=== PATIENT | female | born 1955 | race African-American/Black ===

== ENCOUNTER 2025-03-26 17:23 | Inpatient (IN) | payer MEDICARE, MEDICAID, SELFPAY ==
[2025-03-26] VITALS (28 sets, daily range): BP systolic 98–148; BP diastolic 51–72; PULSE 112–136; RESP 12–20; TEMP 37.2; O2SAT 94–100; BMI 32.2
--- NOTE | ~2025-03-26 | XR_ITS ---
Examination: XR chest port-a-cath/central Clinical History: dialysis catheter placement verification Comparison: Earlier same day Technique: Portable AP Findings: Right neck dialysis catheter with tip lower SVC. Heart size normal. Lungs clear. No acute bony abnormality. IMPRESSION: 1. No pneumothorax or other acute cardiopulmonary findings given portable technique. Reviewed, dictated and finalized at location R. S AGENT CASUALTY INSURANCE IMPRESSION: 1. No pneumothorax or other acute cardiopulmonary findings given portable tech nique.
--- NOTE | ~2025-03-26 | CT_ITS ---
EXAMINATION: CT brain wo sharmaine, 03/31/2025 16:32 CORE BLOWER OPERATOR HISTORY: AMS COMPARISON: No comparisons available. Technique: Axial images obtained of the brain without contrast. One or more of the following dose reduction techniques were used: automated exposure control, adjustment of the mA and/or kV according to patient size, use of iterative reconstruction technique. Findings: No acute infarct or parenchymal hemorrhage. No abnormal mass or mass effect. No midline shift. No extra-axial fluid collections. No hydrocephalus. Mastoid air cells unremarkable. Sinuses and orbits unremarkable. No acute fracture. No significant facial or scalp soft tissue swelling evident. No radiopaque foreign body is seen. Impression: 1.No acute intracranial abnormality. Reviewed, dictated and finalized at location P. BLOWER OPERATOR Impression: 1.No acute intracranial abnormality.
--- NOTE | ~2025-03-26 | CT_ITS ---
EXAMINATION: CT brain wo con DATE: 03/26/2025 19:30 INDICATION: Altered mental status. TECHNIQUE: Computed tomography (CT) of the head was performed without intravenous contrast. The mA was adjusted according to patient size. Iterative reconstruction technique was employed. The dose-length product was 605.33 mGy-cm. COMPARISON: None FINDINGS: No acute intracranial bleed. No extra-axial collections. No evidence of ventriculomegaly. Extensive chronic small vessel ischemic change of periventricular white matter. No effacement of sulci. IMPRESSION: 1. No acute intracranial findings. 2. Extensive, bilaterally symmetric chronic small vessel ischemic changes. Reviewed, dictated and finalized at location T. MECHANIC
--- NOTE | ~2025-03-26 | XR_ITS ---
EXAMINATION: XR chest 1V DATE: 03/26/2025 19:35 INDICATION: Weakness. TECHNIQUE: A single frontal view of the chest was obtained. COMPARISON: None. FINDINGS: Upper normal size heart. Atherosclerotic aorta. Lungs are free of acute process. Calcified granuloma in the right lower lobe. Severe arthritic changes of both shoulders. IMPRESSION: 1. No acute pulmonary findings. Significant atherosclerotic aorta. 2. Severe arthritis of both shoulders. Reviewed, dictated and finalized at location T. CH COORDINATOR
--- NOTE | ~2025-03-26 | XR_ITS ---
Examination: XR chest 1V portable Clinical History: CHF Comparison: 1 day prior Technique: Portable AP Findings: Heart size normal. Lungs clear. No acute bony abnormality. IMPRESSION: 1. No acute cardiopulmonary findings given portable technique. Reviewed, dictated and finalized at location R. KLAYER
--- NOTE | ~2025-03-26 | XR_ITS ---
EXAMINATION: XR chest 1V portable DATE: 03/31/2025 09:56 INDICATION: Aspiration TECHNIQUE: A single frontal view of the chest was obtained. COMPARISON: March 28 chest x-ray FINDINGS: Exam somewhat limited by patient positioning and portable technique with no nixon pulmonary edema, or large effusion or gross consolidative process. Bones and upper abdomen appear stable. Gastric catheter present with the tip in the body of the stomach. Right internal jugular dual lumen catheter with tip projecting over the cavoatrial junction unchanged. No pneumothorax or subphrenic free air seen. IMPRESSION: 1. No gross interval change from the March 28 exam. Reviewed, dictated and finalized at location A. CLEANER
--- NOTE | ~2025-03-26 | US_ITS ---
EXAM/PROCEDURE: US renal BI HISTORY: KRISTEN (on CKD?) COMPARISON: None available. TECHNIQUE: Bilateral renal ultrasound FINDINGS: Right kidney: 9.4 x 5.4 x 4.4 cm Left kidney: 9.1 x 4.5 x 3.7 cm Sonographic windows are limited obscuring anatomic detail the kidneys. No gross hydronephrosis or large masses. The urinary bladder is nondistended with catheter placed. Partial visualization of the gallbladder suggest cholelithiasis. IMPRESSION: Very limited examination with no gross hydronephrosis or large renal masses. If more discrete evaluation of the kidneys is required, consider CT or MRI. The urinary bladder is nondistended with catheter placed. Cholelithiasis incidentally noted in the partially visualized gallbladder. Reviewed, dictated and finalized at location A. ULIZING MACHINE OPERATOR
--- NOTE | ~2025-03-26 | XR_ITS ---
EXAMINATION: XR abdomen gastric tube insert DATE: 03/30/2025 13:16 INDICATION: Nasogastric tube placement TECHNIQUE: A supine view of the abdomen and lower chest was obtained for evaluation of feeding tube placement. COMPARISON: None. FINDINGS: Nasogastric tube tip in proximal side port in the body the stomach. Dual-lumen right internal jugular central venous catheter with distal tip at the high right atrium. Visualized portion of lungs are clear with no pleural effusion or pneumothorax. Heart size is normal. Calcified right hilar lymph nodes consistent with old granulomatous disease. Upper lumbar levoscoliosis with severe spondylosis. IMPRESSION: 1. Nasogastric tube tip in proximal side port in the body the stomach. Reviewed, dictated and finalized at location A. COMMUNICATIONS SPECIALIST
--- NOTE | ~2025-03-26 | XR_ITS ---
EXAMINATION: XR chest 1V portable COMPARISON: No comparisons available. HISTORY: sob FINDINGS: Mild pulmonary venous congestion. No pneumothorax. Mild cardiomegaly. Mediastinal and hilar contours are within normal limits. Bony thorax no acute abnormality. Miscellaneous: None Impression: Mild CHF Reviewed, dictated and finalized at location P. UP WORKER Impression: Mild CHF
--- NOTE | 2025-03-26 17:47 | ECG_ITS ---
Test Date: 2025-03-26 18:01:09 Measurements Intervals [place] Rate: 114 P: 59 IA: 179 QRS: 76 QRSD: 74 T: 183 QT: 319 QTc: 439 Interpretive Statements SINUS TACHYCARDIA CONSIDER ANTERIOR INFARCT, AGE INDETERMINATE NONSPECIFIC ST & T-WAVE ABNORMALITY- DIFFUSE LEADS BASELINE ARTIFACT- I, II, III, AVR, AVL, AVF, V4-V5 ABNORMAL ECG No previous ECG available for comparison Electronically Signed On 03-26-2025 20:33:13 CLINICAL SUPPORT ASSOCIATE by Marko Barahona D.O.
--- NOTE | 2025-03-26 18:46 | PC.NURSE ---
Unable to get peripheral IV d/t pt. having poor vasculature. Racquel RN at bedside attempting ultrasound IV.
--- NOTE | 2025-03-26 18:47 | PC.NURSE ---
Pt. niece and POA at bedside who states pt. has had muffled speech and refusing to eat for approximately x1 month. Pt. is bed bound.
--- NOTE | 2025-03-26 18:48 | ED.GENADULT ---
HPI - General Adult General Chief complaint: Altered Mental Status Stated complaint: ABN LABS Time Seen by Provider: 03/26/25 17:55 History of Present Illness HPI narrative: patient 69-year-old female who presents emergency department chief complaint of altered mental status. Patient is resident of [facility] and per the facility had elevated renal function patient has history of CVA diabetes and normally has some level of dementia and the family reports that she has been progressively less responsive Related Data Allergies Allergy/AdvReac Type Severity Reaction Status Date / Time No Known Allergies Allergy Verified 03/26/25 17:46 Review of Systems Review of Systems: A 10 system review of systems was completed on the patient and is negative except for what is stated in the HPI. Nursing and ancillary documentation was reviewed. Exam Narrative: GENERAL: Chronically ill-appearing, well-nourished, and in no acute distress. HEAD: Normocephalic, atraumatic. EYES: PERRLA and EOMI. ENT: Nares clear, no rhinorrhea or epistaxis. Mucous membranes moist. NECK: Supple. CHEST: Clear to auscultation. No respiratory distress. HEART: Regular rate and rhythm. No murmur heard. Normal peripheral pulses. ABDOMEN: Soft, nontender, nondistended, normal active bowel sounds. EXTREMITIES: Normal range of motion. No edema. SKIN: Warm, dry, no rash. NEURO: winces to pain nonverbal Course Vital Signs Vital signs: Vital Signs Pulse Rate 114 H 03/26/25 17:29 Respiratory Rate 17 03/26/25 17:29 Blood Pressure 98/58 L 03/26/25 17:29 Pulse Oximetry 94 03/26/25 17:29 Oxygen Delivery Room Air 03/26/25 17:29 Temperature 37.2 C 03/26/25 18:19 Pulse Rate 135 H 03/26/25 21:15 Respiratory Rate 14 03/26/25 21:15 Blood Pressure 119/70 03/26/25 21:15 Pulse Oximetry 96 03/26/25 21:15 Oxygen Delivery Room Air 03/26/25 17:41 MDM MDM Narrative Medical decision making narrative: was discussed with the patient's family and they are leaning more toward DNR status. Laboratory studies were obtained on the patient showed a BUN of 89 and a creatinine of 7.48 troponin was slightly elevated at 0.127 lactic acid was 2.5 white blood cell count was 12.2 30 milliliters/kilos of IV fluids were ordered for the patient the patient was empirically started on Rocephin as the urinalysis is currently pending but the urine was essentially nixon pus BNP was elevated [id number] chest x-ray showed no acute findings CT head showed no acute findings Differential Diagnosis Differential Diagnosis: ACS, UTI, acute kidney injury, dehydration, Lab Data MDM Lab Attestation statement: I personally reviewed the patient's lab results. 03/26/25 19:15 03/26/25 19:15 Labs: Lab Results 03/26/25 03/26/25 03/26/25 Range/Units 19:15 19:44 20:20 WBC 12.2 H (4.5-10.0) K/mm3 RBC 3.87 L (4.2-5.4) M/mm3 Hgb 10.4 L (12.0-15.0) g/dL Hct 31.9 L (37.0-47.0) % MCV 82.4 (80-100) fl MCH 26.9 (26-34) pg MCHC 32.6 (32-36) g/dl RDW 17.8 H (11.5-14.5) % Plt Count 379 H (150-375) k/mm3 MPV 10.9 H (7.4-10.4) fl Immature Gran % (Auto) 1.6 H (0-0.5) % Neut % (Auto) 76.2 H (45.5-73.1) % Lymph % (Auto) 13.6 L (18.3-44.2) % [place] % (Auto) 8.4 (2.6-8.5) % Eos % (Auto) 0.0 (0-4.4) % Baso % (Auto) 0.2 (0.2-1.2) % Lymph # (Auto) 1.65 (0.9-3.2) K/mm3 Hardin # (Auto) 1.0 H (0.1-0.6) K/mm3 Eos # (Auto) 0.0 (0-0.3) K/mm3 Baso # (Auto) 0.0 (0.0-0.1) K/mm3 Abs Immat Gran (auto) 0.20 H (0.00-0.031) K/mm3 Absolute Neuts (auto) 9.3 H (1.3-6.7) K/mm3 Absolute Nucleated RBC 0.210 H (0.0-0.012) K/mm3 Nucleated RBC % 1.7 H (0.0-0.2) % PT 13.9 (11.1-14.7) Seconds INR 1.1 APTT 24.7 (22.3-36.8) Seconds Sodium 139 (137-145) mmol/L Potassium 4.3 (3.4-5.0) mmol/L Chloride 107 (98-107) mmol/L Carbon Dioxide 21 L (22-30) mmol/L Anion Gap 11 (4-12) mmol/L BUN 89 H (7-17) mg/dL Creatinine 7.48 H (0.7-1.0) mg/dL Estim Creat Clear Calc 6 ml/min Estimated GFR 5 L (59 - ) Glucose 139 H (65-110) mg/dL Lactic Acid 2.5 H (0.7-2.0) mmol/L Calcium 8.2 L (8.4-10.2) mg/dL Magnesium 2.2 (1.6-2.3) mg/dL Total Bilirubin 1.1 (0.2-1.3) mg/dL AST 32 (14-36) U/L ALT 30 (6-35) U/L Alkaline Phosphatase 107 (38-126) U/L Troponin I 0.127 H* (0.000-0.034) ng/mL NT-Pro-B Natriuret Pep 35208 H (19.9-100) pg/mL Total Protein 6.6 (6.3-8.2) g/dL Albumin 3.0 L (3.5-5.1) g/dL Procalcitonin 0.5 ng/mL Urine Color Dark yellow (Yellow) Urine Appearance Turbid H (Clear) Urine pH 6.0 (5.0-9.0) Ur Specific [place] 1.030 (1.001-1.035) Urine Protein 2+ H (Negative) mg/dL Urine Glucose (UA) Negative (Negative) mg/dL Urine Ketones Negative (Negative) mg/dL Ur Blood (Man) 3+ H (Negative) Urine Nitrate Negative (Negative) Urine Bilirubin 1+ H (Negative) Urine Urobilinogen 0.2 (<2.0) mg/dL Leukocyte Esterase Rfl 3+ H (Negative) SUSSY/UL Urine RBC 21-50 H (0-2) /hpf Urine WBC >100 (0-3) /hpf Ur Squamous Epith Cells None seen (Few) /hpf Urine Bacteria 3+ H (None) /hpf Influenza A (RT-PCR) Negative (Negative) Influenza B (RT-PCR) Negative (Negative) RSV (RT-PCR) Negative (Negative) SARS-CoV-2 RNA (RT-PCR) Negative (Negative) Imaging Data Radiologist's impression: ITS Impressions Head CT 03/26/25 19:31 IMPRESSION: 1. No acute intracranial findings. 2. Extensive, bilaterally symmetric chronic small vessel ischemic changes. Chest X-Ray 03/26/25 19:36 IMPRESSION: 1. No acute pulmonary findings. Significant atherosclerotic aorta. 2. Severe arthritis of both shoulders. Discharge Plan Discharge Clinical Impression: Acute kidney injury, Elevated troponin Patient Disposition: Still a Patient Condition: Stable Patient Language: Iranian Follow-up/Referrals: Dillan Villanueva [Other] Time of Disposition: 20:56
--- NOTE | 2025-03-26 19:07 | ECG_ITS ---
Test Date: 2025-03-26 19:48:54 Measurements Intervals [place] Rate: 132 P: 3 FL: 167 QRS: 89 QRSD: 79 T: 217 QT: 292 QTc: 433 Interpretive Statements ATRIAL FLUTTER/TACHYCARDIA WITH RAPID VENTRICULAR RESPONSE CONSIDER ANTERIOR INFARCT, AGE INDETERMINATE ST-T WAVE ABNORMALITY IN INF/LAT LEADS- CONSIDER ISCHEMIA BASELINE ARTIFACT- I, II, AVR, AVL, AVF, V2 ABNORMAL ECG Compared to ECG 03/26/2025 18:01:09 SINUS TACHYCARDIA NO LONGER PRESENT Possible ischemia now present Electronically Signed On 03-26-2025 20:37:31 ELECTRICAL TEST ENGINEER by Marko Barahona D.O.
[2025-03-26 19:24] LABS: Hematocrit 31.9 % (37.0-47.0); Hemoglobin 10.4 g/dL (12.0-15.0); Immature Granulocyte Percent A 1.6 % (0-0.5); Lymphocytes Absolute Auto 1.65 K/mm3 (0.9-3.2); Mean Corpuscular HGB Conc 32.6 g/dl (32-36); Mean Corpuscular Hemoglobin 26.9 pg (26-34); Mean Corpuscular Volume 82.4 fl (80-100); Nucleated Red Blood Cells Absolute Auto 0.210 K/mm3 (0.0-0.012); Nucleated Red Blood Cells Perc 1.7 % (0.0-0.2); Platelet Count Result 379 k/mm3 (150-375); Red Blood Count 3.87 M/mm3 (4.2-5.4); White Blood Count 12.2 K/mm3 (4.5-10.0)
--- NOTE | 2025-03-26 19:30 | PC.NURSE ---
After multiple attempts with ultrasound machine, IV placement and lab draw successful.
[2025-03-26 19:34] LABS: INR 1.1; Prothrombin Time 13.9 Seconds (11.1-14.7)
[2025-03-26 19:36] LABS: Partial Thromboplastin Time 24.7 Seconds (22.3-36.8)
[2025-03-26 19:44] LABS: Alanine Aminotransferase 30 U/L (6-35); Albumin Level 3.0 g/dL (3.5-5.1); Alkaline Phosphatase 107 U/L (38-126); Anion Gap 11 mmol/L (4-12); Aspartate Amino Transferase 32 U/L (14-36); Bilirubin,Total 1.1 mg/dL (0.2-1.3); Blood Urea Nitrogen 89 mg/dL (7-17); Calcium 8.2 mg/dL (8.4-10.2); Carbon Dioxide 21 mmol/L (22-30); Chloride 107 mmol/L (98-107); Glucose 139 mg/dL (65-110); Magnesium 2.2 mg/dL (1.6-2.3); Potassium 4.3 mmol/L (3.4-5.0); Sodium 139 mmol/L (137-145); Total Protein 6.6 g/dL (6.3-8.2)
[2025-03-26 19:56] LABS: Troponin I 0.127 ng/mL (0.000-0.034)
[2025-03-26 19:59] LABS: Procalcitonin 0.5 ng/mL
[2025-03-26 20:08] LABS: Estimated CRCL calculation 6 ml/min; Estimated Glomerular Filt Rate 5
--- NOTE | 2025-03-26 20:15 | PC.NURSE ---
Dr. Sxeton at bedside updating family.
[2025-03-26 20:18] LABS: NT Pro B Type Natriuretic Pept 15100 pg/mL (19.9-100)
[2025-03-26] MEDS: SODIUM CHLORIDE 0.9% IV 1,000 ML 999 ML IV CONT ×3 (20:19→22:30)
[2025-03-26 20:26] LABS: Influenza A QL RT-PCR Negative (Negative); Influenza B QL RT-PCR Negative (Negative); RSV RNA, RT-PCR Negative (Negative); SARS-CoV-2 RNA PCR Negative (Negative)
[2025-03-26 20:37] LABS: Add Urine Microscopic? YES
--- NOTE | 2025-03-26 20:39 | PC.NURSE ---
Pt. arrived in soiled depend. Dirty depend removed, Pt. cleaned of feces and urine with soap and water. Clean depend applied. Pt. has sacral wound. No tunneling or purulent drainage. Scant amount of active bleeding. Dressing from facility removed. Wound cleaned. New Mepilex applied. Wound on anterior R. thigh that wraps around to posterior R. thigh. Bandages from facility removed. Small amount of purulent drainage. Wound cleaned and new mepilex applied. Marina boot on R. foot from facility on R. foot. Pillow placed under L. foot to keep pressure off of L. heel.
[2025-03-26 20:55] LABS: Appearance Urine Turbid (Clear)
[2025-03-26 20:56] LABS: Glucose Urine UA Negative (Negative); Specific Grav Ur 1.030 (1.001-1.035)
[2025-03-26 20:59] LABS: Nitrate Urine Negative (Negative)
[2025-03-26 21:00] LABS: Leukocyte Esterase Ur 3+ LEU/UL (Negative)
[2025-03-26] MEDS: cefTRIAXone 1 GM in SODIUM CHLORIDE 0.9% IV 50 ML 100 ML IVPB (21:13)
--- NOTE | 2025-03-26 22:32 | ECG_ITS ---
Test Date: 2025-03-26 22:38:16 Measurements Intervals [place] Rate: 123 P: 0 MS: 172 QRS: 84 QRSD: 71 T: -90 QT: 292 QTc: 418 Interpretive Statements SINUS TACHYCARDIA DELAYED PRECORDIAL R/S TRANSITION ST-T WAVE ABNORMALITY IN ANTEROLAT/INF LEADS- CONSIDER ISCHEMIA BASELINE ARTIFACT- I, I, AVR, AVL, V1-V4 ABNORMAL ECG Compared to ECG 03/26/2025 19:48:54 HEART RATE HAS DECREASED Electronically Signed On 03-27-2025 06:18:08 COMMERCIAL GLAZIER by Marko Barahona D.O.
[2025-03-26 23:32] LABS: Troponin I 0.117 ng/mL (0.000-0.034)
--- NOTE | 2025-03-26 23:51 | WPCEDHO ---
ED Hand Off Checklist All vitals saved: Yes IV Site documented: Yes All med administrations documented: Yes Triage Note Triage Note Pt to ED via [facility] 03/26/25 17:29 from [facility] with c/o abnormal lab values. Per EMS , facility nurse reported that the pt had a high creatinine level. Pt has a pmh of CKD, CHF, HTN, AMS and DM2. Pt is currently disoriented and arousable to verbal stimuli. Allergies No Known Allergies Allergy (Verified 03/26/25 17:46) Administered/Completed Medications Discontinued Medications Sodium Chloride (Normal Saline Iv) 1,000 mls @ 999 mls/hr IV CONT .Q1H1M STA Stop: 03/26/25 19:12 Last Infusion: 03/26/25 22:29 Dose: Infused Documented By: Admin: 03/26/25 20:19 Dose: 999 mls/hr Documented By: JESSICA Sodium Chloride (Normal Saline Iv) 1,000 mls @ 999 mls/hr IV CONT .Q1H1M STA Stop: 03/26/25 19:52 Last Infusion: 03/26/25 23:38 Dose: Infused Documented By: Admin: 03/26/25 21:13 Dose: 999 mls/hr Documented By: JESSICA Sodium Chloride (Normal Saline Iv) 1,000 mls @ 999 mls/hr IV CONT .Q1H1M STA Stop: 03/26/25 20:51 Last Infusion: 03/26/25 23:38 Dose: Infused Documented By: Admin: 03/26/25 22:30 Dose: 999 mls/hr Documented By: JESSICA Ceftriaxone Sodium 1 gm/ (Sodium Chloride) 50 mls @ 100 mls/hr IVPB ONCE STA Stop: 03/26/25 20:58 Last Infusion: 03/26/25 22:00 Dose: Infused Documented By: Admin: 03/26/25 21:13 Dose: 100 mls/hr Documented By: JESSICA Notes 03/26/25 20:39 Nurse Note by Stephanie Stewart Pt. arrived in soiled depend. Dirty depend removed, Pt. cleaned of feces and urine with soap and water. Clean depend applied. Pt. has sacral wound. No tunneling or purulent drainage. Scant amount of active bleeding. Dressing from facility removed. Wound cleaned. New Mepilex applied. Wound on anterior R. thigh that wraps around to posterior R. thigh. Bandages from facility removed. Small amount of purulent drainage. Wound cleaned and new mepilex applied. Marina boot on R. foot from facility on R. foot. Pillow placed under L. foot to keep pressure off of L. heel. Initialized on 03/26/25 20:39 - END OF NOTE 03/26/25 20:15 (created 03/26/25 20:30) Nurse Note by Stephanie Stewart Dr. at bedside updating family. Initialized on 03/26/25 20:30 - END OF NOTE 03/26/25 19:30 (created 03/26/25 19:41) Nurse Note by Stephanie Stewart After multiple attempts with ultrasound machine, IV placement and lab draw successful. Initialized on 03/26/25 19:41 - END OF NOTE 03/26/25 18:47 Nurse Note by Stephanie Stewart Pt. niece and POA at bedside who states pt. has had muffled speech and refusing to eat for approximately x1 month. Pt. is bed bound. Initialized on 03/26/25 18:47 - END OF NOTE 03/26/25 18:46 Nurse Note by Stephanie Stewart Unable to get peripheral IV d/t pt. having poor vasculature. LUCRECIA Clement at bedside attempting ultrasound IV. Initialized on 03/26/25 18:46 - END OF NOTE Interventions/Assessments IV / Saline Lock, Insert Start: 03/26/25 17:47 Freq: STAT Status: Active Protocol: Document 03/26/25 19:45 KJT (Rec: 03/26/25 19:46 KJT [id number]) IV Assessment Peripheral Access Right Antecubital IV Catheter Access Initiated IV Insertion Date 03/26/25 IV Insertion Time 19:45 Catheter Gauge 20 IV Insertion 3 Attempts Ultrasound Used for Yes Placement IV Site Assessment WNL IV Care and WNL Maintenance PA: Cardiovascular Assessment Start: 03/26/25 17:17 Freq: Status: Active Protocol: Document 03/26/25 17:44 MCO (Rec: 03/26/25 17:45 MCO [id number]) Cardiovascular Assessment Skin Description Dusky,Dry Heart Sounds Normal Jugular Vein None Distention PA: Neurological Assessment Start: 03/26/25 17:17 Freq: Status: Active Protocol: Document 03/26/25 20:00 KJT (Rec: 03/26/25 20:46 KJT [id number]) Neurological Assessment Level of Alert Consciousness Arousable to Light Pain Orientation Oriented to Person Neurological Weakness, General Symptoms Hallucination Type None Unable to Redirect No Behavior Behavior Flat Affect Patient Unable to Comprehend Comprehension Memory Description Usp Impaired,Short Term Impaired Ability to Maintain Unable to Assess Balance Facial Symmetry Unable to Assess Speech Pattern Delayed Tongue Position Midline [place] Coma Scale Eyes To Pain Verbal Disoriented Motor Follows Commands [place] Coma Total 12 Score PA: Respiratory Assessment Start: 03/26/25 17:17 Freq: Status: Active Protocol: Document 03/26/25 17:41 MCO (Rec: 03/26/25 17:44 MCO [id number]) Oxygen Delivery Oxygen Delivery Room Air Last Vital Signs Temperature 99 F 03/26/25 18:19 Pulse Rate 113 H 03/26/25 22:01 Respiratory Rate 15 03/26/25 22:01 Pulse Oximetry 97 03/26/25 22:01 Blood Pressure 148/71 H 03/26/25 22:01 Blood Pressure Mean 87 03/26/25 22:01 Blood Pressure Position Sitting 03/26/25 21:15 Oxygen Delivery Room Air 03/26/25 17:41 Weight 78 kg 03/26/25 17:29 Last Result - Abnormals Only WBC 12.2 K/mm3 (4.5-10.0) H 03/26/25 19:15 RBC 3.87 M/mm3 (4.2-5.4) L 03/26/25 19:15 Hgb 10.4 g/dL (12.0-15.0) L 03/26/25 19:15 Hct 31.9 % (37.0-47.0) L 03/26/25 19:15 RDW 17.8 % (11.5-14.5) H 03/26/25 19:15 Plt Count 379 k/mm3 (150-375) H 03/26/25 19:15 MPV 10.9 fl (7.4-10.4) H 03/26/25 19:15 Immature Gran % (Auto) 1.6 % (0-0.5) H 03/26/25 19:15 Neut % (Auto) 76.2 % (45.5-73.1) H 03/26/25 19:15 Lymph % (Auto) 13.6 % (18.3-44.2) L 03/26/25 19:15 [place] # (Auto) 1.0 K/mm3 (0.1-0.6) H 03/26/25 19:15 Abs Immat Gran (auto) 0.20 K/mm3 (0.00-0.031) H 03/26/25 19:15 Absolute Neuts (auto) 9.3 K/mm3 (1.3-6.7) H 03/26/25 19:15 Absolute Nucleated RBC 0.210 K/mm3 (0.0-0.012) H 03/26/25 19:15 Nucleated RBC % 1.7 % (0.0-0.2) H 03/26/25 19:15 Carbon Dioxide 21 mmol/L (22-30) L 03/26/25 19:15 BUN 89 mg/dL (7-17) H 03/26/25 19:15 Creatinine 7.48 mg/dL (0.7-1.0) H 03/26/25 19:15 Estimated GFR 5 (59-) L 03/26/25 19:15 Glucose 139 mg/dL (65-110) H 03/26/25 19:15 Lactic Acid 2.2 mmol/L (0.7-2.0) H 03/26/25 21:56 Calcium 8.2 mg/dL (8.4-10.2) L 03/26/25 19:15 Troponin I 0.117 ng/mL (0.000-0.034) H* 03/26/25 21:56 NT-Pro-B Natriuret Pep 16528 pg/mL (19.9-100) H 03/26/25 19:15 Albumin 3.0 g/dL (3.5-5.1) L 03/26/25 19:15 Urine Appearance Turbid (Clear) H 03/26/25 20:20 Urine Protein 2+ mg/dL (Negative) H 03/26/25 20:20 Ur Blood (Man) 3+ (Negative) H 03/26/25 20:20 Urine Bilirubin 1+ (Negative) H 03/26/25 20:20 Leukocyte Esterase Rfl 3+ SUSSY/UL (Negative) H 03/26/25 20:20 Urine RBC 21-50 /hpf (0-2) H 03/26/25 20:20 Urine Bacteria 3+ /hpf (None) H 03/26/25 20:20
[2025-03-26] MEDS: SODIUM CHLORIDE 0.9% IV 1,000 ML 125 ML IV CONT (23:52)
[2025-03-27] VITALS (14 sets, daily range): BP systolic 98–122; BP diastolic 34–82; PULSE 70–132; RESP 14–20; TEMP 36.2–37.1; O2SAT 91–100; BMI 32.2; BMI 32.4
--- NOTE | 2025-03-27 00:44 | WNDPHOTO ---
PHOTO ONLY - See Nursing Notes and/ or assessments for documentation.
--- NOTE | 2025-03-27 00:51 | WNDPHOTO ---
PHOTO ONLY - See Nursing Notes and/ or assessments for documentation.
--- NOTE | 2025-03-27 00:55 | WNDPHOTO ---
PHOTO ONLY - See Nursing Notes and/ or assessments for documentation.
--- NOTE | 2025-03-27 01:14 | ADMGEN ---
This patient, Yisel Alvarez, was admitted to [facility] Surg Room 324-02. Patient/family oriented to hospital policies and general routines including ID bracelet, bed and alarms, visiting hours, pain management, procedures, bathroom and other care routines, personal items, smoking policy, room service/diet, and visiting hours. Information on how to activate the Rapid Response Team has been discussed. Patient/Family are encouraged to report perceived risks to care and to ask questions if they do not understand what they are told or what they should do.
--- NOTE | 2025-03-27 05:57 | PM.IMHP2 ---
H&P: HPI History of Present Illness Date/Time: 03/27/25 05:57 Chief Complaint: Renal failure on outpatient labs Narrative: 69-year-old female with a past medical history of dementia, CVA, essential hypertension, CHF and diabetes who presented to the ER from [facility] due to elevated creatinine on outpatient labs. The patient is unable to provide any history and will only open her eyes to verbal stimuli. She will not follow commands or communicate. Evidently the labs were performed due to patient being more altered than baseline. Family reported that the patient had been progressively less responsive over the course of the week. The patient was sent into the ER for evaluation. Labs demonstrated PMFSH Past Medical History Medical History (Updated 03/27/25 @ 09:17 by Tanisha Montenegro DO) Anxiety and depression Dementia Type 2 diabetes mellitus Essential hypertension CHF (congestive heart failure) CVA (cerebral vascular accident) Surgical History Surgical History (Updated 03/27/25 @ 06:53 by Tanisha Montenegro DO) Surgical history unknown Social History Social History Smoking status: Unknown if ever smoked Spiritual care concerns: No Meds Home Medications and Allergies Home Medications ?Medication ?Instructions ?Recorded ?Confirmed ?Type acetaminophen 325 mg capsule 650 mg PO Q4H PRN pain 03/27/25 03/27/25 History albuterol 90 mcg-budesonide 80 2 inh inhalation Q6H PRN shortness 03/27/25 03/27/25 History mcg/actuation HFA aerosol inhaler of breath (Airsupra) ammonium lactate 12 % lotion 1 applic topical DAILY 03/27/25 03/27/25 History (AmLactin) ascorbic acid (vitamin C) 500 mg 500 mg PO DAILY 03/27/25 03/27/25 History capsule aspirin 81 mg tablet 81 mg PO DAILY 03/27/25 03/27/25 History atorvastatin 40 mg tablet 40 mg PO HS 03/27/25 03/27/25 History bisacodyl 10 mg rectal suppository 10 mg RECTAL DAILY PRN constipation 03/27/25 03/27/25 History calamine 1 ea topical Q8H PRN itching 03/27/25 03/27/25 History carvedilol 6.25 mg tablet 6.25 mg PO BID 03/27/25 03/27/25 History cholecalciferol (vitamin D3) 25 1,000 unit PO DAILY 03/27/25 03/27/25 History mcg (1,000 unit) capsule cranberry extract 250 mg tablet 250 mg PO DAILY 03/27/25 03/27/25 History diclofenac sodium 1 % topical gel 2 g topical Q4H PRN pain 03/27/25 03/27/25 History diphenhydramine HCl 25 mg capsule 25 mg PO Q6H PRN itching 03/27/25 03/27/25 History (Aler-Cap) duloxetine 60 mg capsule,delayed 60 mg PO DAILY 03/27/25 03/27/25 History release famotidine 20 mg tablet 20 mg PO DAILY 03/27/25 03/27/25 History ferrous sulfate 325 mg (65 mg 325 mg PO DAILY 03/27/25 03/27/25 History iron) tablet (FeroSul) furosemide 40 mg tablet 40 mg PO DAILY 03/27/25 03/27/25 History hydrocortisone 1 % topical cream 1 applic topical Q12H PRN 03/27/25 03/27/25 History (Ala-Rubens) hemorrhoids magnesium citrate 296 ml PO DAILY PRN constipation 03/27/25 03/27/25 History magnesium hydroxide 400 mg/5 mL 30 ml PO HS PRN constipation 03/27/25 03/27/25 History oral suspension (Milk of Magnesia) methyl salicylate 10 % topical 1 applic topical Q4H PRN muscle 03/27/25 03/27/25 History cream pain metronidazole 1 % topical cream 1 applic topical Q12H 03/27/25 03/27/25 History (Noritate) miconazole nitrate 2 % topical 1 spray topical Q12H 03/27/25 03/27/25 History spray powder (Athlete's Foot) mirtazapine 7.5 mg tablet 7.5 mg PO HS 03/27/25 03/27/25 History multivitamin (Daily Multi-Vitamin 1 tablet PO DAILY 03/27/25 03/27/25 History tablet) nystatin 100,000 unit/gram topical 1 applic topical BID 03/27/25 03/27/25 History powder ondansetron HCl 4 mg tablet 4 mg PO Q6H PRN nausea and vomiting 03/27/25 03/27/25 History ophthalmic irrigation solution 2 drp ophthalmic (eye) Q12H PRN 03/27/25 03/27/25 History drops dry eye(s) polyethylene glycol 3350 17 17 g PO DAILY PRN constipation 03/27/25 03/27/25 History gram/dose oral powder (ClearLax) povidone-iodine 10 % topical 1 applic topical DAILY 03/27/25 03/27/25 History solution (Betadine) sitagliptin 25 mg tablet 25 mg PO DAILY 03/27/25 03/27/25 History sodium phosphates 19 gram-7 118 ml RECTAL DAILY PRN 03/27/25 03/27/25 History gram/118 mL enema (Enema) constipation triamcinolone acetonide 0.1 % 1 applic topical BID 03/27/25 03/27/25 History topical cream zinc 50 mg capsule 50 mg PO DAILY 03/27/25 03/27/25 History zinc oxide 10 % topical spray 1 applic topical BID 03/27/25 03/27/25 History (Beba Bottoms Diaper Rash) Allergies Allergy/AdvReac Type Severity Reaction Status Date / Time No Known Allergies Allergy Verified 03/27/25 01:53 Vital Signs Vital Signs - 24 hr 03/26/25 17:29 03/26/25 17:41 03/26/25 18:03 Temperature Pulse Rate 114 H 114 H Respiratory Rate 17 17 Blood Pressure 98/58 L Pulse Oximetry 94 Oxygen Delivery Room Air Room Air 03/26/25 18:15 03/26/25 18:19 03/26/25 18:30 Temperature 99 F Pulse Rate 114 H 113 H 114 H Respiratory Rate 20 16 15 Blood Pressure 119/60 Pulse Oximetry 100 Oxygen Delivery 03/26/25 18:45 03/26/25 19:00 03/26/25 19:45 Temperature Pulse Rate 114 H 136 H 133 H Respiratory Rate 16 14 16 Blood Pressure Pulse Oximetry 97 Oxygen Delivery 03/26/25 20:00 03/26/25 20:14 03/26/25 20:15 Temperature Pulse Rate 134 H 119 H 119 H Respiratory Rate 17 12 15 Blood Pressure 100/51 L Pulse Oximetry 98 Oxygen Delivery 03/26/25 20:16 03/26/25 20:18 03/26/25 20:30 Temperature Pulse Rate 118 H 118 H 112 H Respiratory Rate 17 14 13 Blood Pressure 102/60 102/60 Pulse Oximetry 96 97 Oxygen Delivery 03/26/25 20:31 03/26/25 20:45 03/26/25 20:46 Temperature Pulse Rate 116 H 117 H 114 H Respiratory Rate 14 12 14 Blood Pressure 114/61 116/72 Pulse Oximetry Oxygen Delivery 03/26/25 21:00 03/26/25 21:01 03/26/25 21:15 Temperature Pulse Rate 112 H 113 H 135 H Respiratory Rate 15 13 14 Blood Pressure 119/70 119/70 Pulse Oximetry 96 Oxygen Delivery 03/26/25 21:15 03/26/25 21:16 03/26/25 21:30 Temperature Pulse Rate 135 H 135 H 134 H Respiratory Rate 15 14 16 Blood Pressure 108/51 L Pulse Oximetry Oxygen Delivery 03/26/25 21:31 03/26/25 21:59 03/26/25 22:00 Temperature Pulse Rate 133 H 113 H 112 H Respiratory Rate 16 15 13 Blood Pressure 130/65 Pulse Oximetry Oxygen Delivery 03/26/25 22:01 03/26/25 22:02 03/26/25 23:52 Temperature Pulse Rate 113 H 113 H 131 H Respiratory Rate 15 17 14 Blood Pressure 148/71 H 114/64 Pulse Oximetry 97 100 Oxygen Delivery 03/27/25 00:36 03/27/25 01:28 03/27/25 02:08 Temperature 98.5 F 97.2 F L Pulse Rate 132 H 111 H Respiratory Rate 20 18 Blood Pressure 98/66 L 122/75 Pulse Oximetry 94 96 Oxygen Delivery Room Air 03/27/25 05:49 Temperature 97.1 F L Pulse Rate 70 Respiratory Rate 14 Blood Pressure 100/58 L Pulse Oximetry 100 Oxygen Delivery Exam Narrative: Weight 80 kg BMI 32 Const: Other: Elderly, well-developed well-nourished, no acute distress, lying in bed with the head of bed at 30? HENMT: Other: Unable to evaluate mucous membranes as the patient keeps her jaw clenched unable to evaluate the patient's eyes that she keeps her eyes tightly clenched shut, head is normocephalic atraumatic Neck: Other: No JVD, no lymph lymphadenopathy Resp: Other: Clear to auscultation bilaterally in anterior lung marie, no increased work of breathing Cardio: Other: Regular rate, regular rhythm, 2+ bilateral radial pulses, 1+ bilateral pedal pulses, no JVD, no murmur GI: Other: Soft, nontender, nondistended, positive bowel sounds : Other: Incontinent of urine with pure wick catheter in place Skin: Other: Patient has a Mepilex dressing on the right heel,, overall patient's skin is dry, no nursing documentation of any pressure wounds Neuro: Other: The patient will not follow commands or open her eyes she clenches her eyes tightly closed and clenches her jaw closed when I am trying to evaluate but did briefly open her mouth but not enough for me to evaluate Extrem: Other: No clubbing, cyanosis or edema Psych: Other: Uncooperative, otherwise unable to assess Results Labs Labs: Laboratory Tests 03/26/25 19:15 03/26/25 19:15 03/26/25 03/26/25 03/26/25 19:15 19:44 20:20 WBC 12.2 H RBC 3.87 L Hgb 10.4 L Hct 31.9 L MCV 82.4 MCH 26.9 MCHC 32.6 RDW 17.8 H Plt Count 379 H MPV 10.9 H Immature Gran % (Auto) 1.6 H Neut % (Auto) 76.2 H Lymph % (Auto) 13.6 L [place] % (Auto) 8.4 Eos % (Auto) 0.0 Baso % (Auto) 0.2 Lymph # (Auto) 1.65 [place] # (Auto) 1.0 H Eos # (Auto) 0.0 Baso # (Auto) 0.0 Abs Immat Gran (auto) 0.20 H Absolute Neuts (auto) 9.3 H Absolute Nucleated RBC 0.210 H Nucleated RBC % 1.7 H PT 13.9 INR 1.1 APTT 24.7 Sodium 139 Potassium 4.3 Chloride 107 Carbon Dioxide 21 L Anion Gap 11 BUN 89 H Creatinine 7.48 H Estim Creat Clear Calc 6 Estimated GFR 5 L Glucose 139 H Lactic Acid 2.5 H Calcium 8.2 L Magnesium 2.2 Total Bilirubin 1.1 AST 32 ALT 30 Alkaline Phosphatase 107 Troponin I 0.127 H* NT-Pro-B Natriuret Pep 67576 H Total Protein 6.6 Albumin 3.0 L Procalcitonin 0.5 Urine Color Dark yellow Urine Appearance Turbid H Urine pH 6.0 Ur Specific [place] 1.030 Urine Protein 2+ H Urine Glucose (UA) Negative Urine Ketones Negative Ur Blood (Man) 3+ H Urine Nitrate Negative Urine Bilirubin 1+ H Urine Urobilinogen 0.2 Leukocyte Esterase Rfl 3+ H Urine RBC 21-50 H Urine WBC >100 Ur Squamous Epith Cells None seen Urine Bacteria 3+ H Influenza A (RT-PCR) Negative Influenza B (RT-PCR) Negative RSV (RT-PCR) Negative SARS-CoV-2 RNA (RT-PCR) Negative 03/26/25 21:56 WBC RBC Hgb Hct MCV MCH MCHC RDW Plt Count MPV Immature Gran % (Auto) Neut % (Auto) Lymph % (Auto) [place] % (Auto) Eos % (Auto) Baso % (Auto) Lymph # (Auto) [place] # (Auto) Eos # (Auto) Baso # (Auto) Abs Immat Gran (auto) Absolute Neuts (auto) Absolute Nucleated RBC Nucleated RBC % PT INR APTT Sodium Potassium Chloride Carbon Dioxide Anion Gap BUN Creatinine Estim Creat Clear Calc Estimated GFR Glucose Lactic Acid 2.2 H Calcium Magnesium Total Bilirubin AST ALT Alkaline Phosphatase Troponin I 0.117 H* NT-Pro-B Natriuret Pep Total Protein Albumin Procalcitonin Urine Color Urine Appearance Urine pH Ur Specific Haslet Urine Protein Urine Glucose (UA) Urine Ketones Ur Blood (Man) Urine Nitrate Urine Bilirubin Urine Urobilinogen Leukocyte Esterase Rfl Urine RBC Urine WBC Ur Squamous Epith Cells Urine Bacteria Influenza A (RT-PCR) Influenza B (RT-PCR) RSV (RT-PCR) SARS-CoV-2 RNA (RT-PCR) Impressions Head CT 03/26/25 19:31 IMPRESSION: 1. No acute intracranial findings. 2. Extensive, bilaterally symmetric chronic small vessel ischemic changes. Chest X-Ray 03/26/25 19:36 IMPRESSION: 1. No acute pulmonary findings. Significant atherosclerotic aorta. 2. Severe arthritis of both shoulders. EKG:Test Date: 2025-03-26 22:38:16 Measurements Intervals [place] Rate: 123 P: 0 VT: 172 QRS: 84 QRSD: 71 T: -90 QT: 292 QTc: 418 Interpretive Statements SINUS TACHYCARDIA DELAYED PRECORDIAL R/S TRANSITION ST-T WAVE ABNORMALITY IN ANTEROLAT/INF LEADS- CONSIDER ISCHEMIA BASELINE ARTIFACT- I, I, AVR, AVL, V1-V4 ABNORMAL ECG Compared to ECG 03/26/2025 19:48:54 HEART RATE HAS DECREASED Quality VTE Prophylaxis VTE prophylaxis: pharmacologic ordered (Heparin 5000 units subQ q.12 hours) Assessment and Plan Assessment and plan (1) Sepsis: Qualifiers: Acute renal failure type: unspecified Sepsis acute organ dysfunction status: with acute organ dysfunction Sepsis type: sepsis due to unspecified organism Severe sepsis acute organ dysfunction type: acute renal failure Severe sepsis shock status: without septic shock Qualified Code(s): A41.9 - Sepsis, unspecified organism; R65.20 - Severe sepsis without septic shock; N17.9 - Acute kidney failure, unspecified Code(s): A41.9 - Sepsis, unspecified organism Status: Acute (2) UTI (urinary tract infection): Qualifiers: Hematuria presence: with hematuria Urinary tract infection type: acute cystitis Qualified Code(s): N30.01 - Acute cystitis with hematuria Code(s): N39.0 - Urinary tract infection, site not specified Status: Acute (3) Acute kidney injury: Code(s): N17.9 - Acute kidney failure, unspecified Status: Acute (4) Lactic acidosis: Code(s): E87.20 - Acidosis, unspecified Status: Acute (5) Type 2 diabetes mellitus: Qualifiers: Chronic kidney disease stage: unspecified stage Diabetes mellitus complication detail: with chronic kidney disease Diabetes mellitus complication status: with kidney complications 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 Qualified Code(s): E11.22 - Type 2 diabetes mellitus with diabetic chronic kidney disease Code(s): E11.9 - Type 2 diabetes mellitus without complications Status: Acute (6) Dementia: Qualifiers: Dementia type: unspecified type Dementia severity: severe Dementia behavioral or psychological symptom: with other behavioral disturbance Qualified Code(s): F03.C18 - Unspecified dementia, severe, with other behavioral disturbance Code(s): F03.90 - Unspecified dementia, unspecified severity, without behavioral disturbance, psychotic disturbance, mood disturbance, and anxiety Status: Acute (7) Goals of care, counseling/discussion: Code(s): Z71.89 - Other specified counseling Status: Acute Plan Patient meets sepsis criteria with tachycardia, leukocytosis, in the setting of UA suggestive urinary tract infection and with concomitant evidence of acute kidney injury. Patient has acute kidney injury is likely due to combination of sepsis and profound dehydration. Dehydration is in part due to advancing dementia with progressive decline in mentation in oral intake. Patient been started empiric antibiotic therapy with Rocephin. She received total of 3 L isotonic fluid bolus and has been started on maintenance IV fluids at 125 mL an hours with significant improvement in her heart rate. Blood cultures and urine cultures have been obtained and are pending. Will repeat CBC and electrolyte panel in a.m.. The patient does have dementia with recent progression of dementia symptoms she also may have some associated encephalopathy due to UTI and acute on chronic kidney injury. The ER provider had a goals of care discussion with the patient's family and they agreed that given the patient's declining condition that they would not want the patient to have cardiopulmonary resuscitation. They would like to allowed natural if conservative measures for treatment fail. They would not want the patient considered for dialysis. Will hold the patient's home Lasix, oral hypoglycemic agent, and atorvastatin. Will continue patient's home Coreg and famotidine. Patient is currently euglycemic. Will add Accu-Cheks a.c. HS and hypoglycemia protocol. MEDICAL DECISION MAKING NARRATIVE -Spoke with the ED provider in detail regarding patient's evaluation, workup and management -Patient seen and examined at bedside -Collaborated with patient's nurse at the bedside in detail and addressed all concerns -Labs, electrolytes, radiology, investigations and test results personally reviewed and interpreted unless otherwise specified -ED/Consult/Nursing/Ancilliary notes on the chart reviewed and appreciated -applicable past medical records and labs were reviewed and unless stated otherwise. Hospitalist MIPS Advance Care Plan I have confirmed that the patient's Advanced Care Plan is present, code status is documented, or surrogate decision maker is listed in patient medical record.: Yes Medication Reconciliation I have utilized all available resources to obtain, update and review the patients current medications (includes all prescriptions, OTC, herbals, cannabis, and nutritional supplements).: Yes
--- NOTE | 2025-03-27 08:30 | P.PNIM_ITS ---
Assessment and Plan Assessment and Plan (1) Sepsis: Qualifiers: Acute renal failure type: unspecified Sepsis acute organ dysfunction status: with acute organ dysfunction Sepsis type: sepsis due to unspecified o rganism Severe sepsis acute organ dysfunction type: acute renal failure Severe sepsis shock status: without septic shock Qualified Code(s): A41.9 - Sepsis, unspecified organism; R65.20 - Severe sepsis without septic shock; N17.9 - Acute kidney failure, unspecified Code(s): A41.9 - Sepsis, unspecified organism Status: Acute Assessment and Plan: Severe sepsis -criteria met with tachycardia, leukocytosis, lactic acidosis, renal failure - suspect due to UTI - stop Rocephin, broaden to Merrem. - follow-up blood cultures, urine culture. Attempt to obtain recent culture data from [facility]. - LA trending down, HR improving. (2) UTI (urinary tract infection): Qualifiers: Hematuria presence: with hematuria Urinary tract infection type: acute cystitis Qualified Code(s): N30.01 - Acute cystitis with hematuria Code(s): N39.0 - Urinary tract infection, site not specified Status: Acute Assessment and Plan: - management as above (3) Acute kidney injury: Code(s): N17.9 - Acute kidney failure, unspecified Status: Acute Assessment and Plan: - admit Cr 7.48, BUN 89. Unclear baseline. -Electrolytes stable. - suspect prerenal injury due to poor PO intake and sepsis/infection - has received close to 4L with minimal improvement. Minimal urine output. Villalba in place. - monitor urine output - renal US pending - continue IV fluids with close monitoring of volume status - discussed goals of care with POA - patient is DNR, but may be agreeable to dialysis temporarily. Family to make final decision this afternoon. If agree to proceed, will consult surgery for temp HD catheter. - discussed with nephrology, Dr. Jay (4) Acute encephalopathy: Code(s): G93.40 - Encephalopathy, unspecified Status: Acute Assessment and Plan: - patient has history of mild dementia, but has had progressively worsening mental status and failure to thrive in the last month since being treated for UTI at [facility] in setting of UTI, renal failure -NPO. DEIDRE hogan. (5) Dementia: Code(s): F03.90 - Unspecified dementia, unspecified severity, without behavioral disturbance, psychotic disturbance, mood disturbance, and anxiety Status: Acute Assessment and Plan: - has history of mild dementia per niece. [facility]. Has had progressive decline in the last 1-2 months. - delirium precautions - monitor mental status (6) Type 2 diabetes mellitus: Qualifiers: Chronic kidney disease stage: unspecified stage Diabetes mellitus complication detail: with chronic kidney disease Diabetes mellitus complication status: with kidney complications Diabetes mellitus [facility] insulin use: without superintendent terminal use Qualified Code(s): E11.22 - Type 2 diabetes mellitus with diabetic chronic kidney disease Code(s): E11.9 - Type 2 diabetes mellitus without complications Status: Acute Assessment and Plan: - hold home PO meds - POCT glucose q6H while NPO - hypoglycemia management protocol (7) Elevated troponin: Code(s): R79.89 - Other specified abnormal findings of blood chemistry Status: Acute Assessment and Plan: - trop I 0.127, 0.117 - initial EKG with ST-T wave abnormality in the anterolateral/inferior leads. Repeat this afternoon. - suspect demand ischemia from sepsis and KRISTEN Plan Code status: DNR DVT prophylaxis: heparin Dispo: TBD Medical Record Review I have reviewed the following patient records and this information was taken into consideration when formulating the assessment and plan.: previous labs Consultations Consultations: I have discussed the care of this pt with the consulting providers. (Dr. Jay, nephrology) Subjective Date/time seen: 03/27/25 08:30 Interval history: Patient seen and examined at bedside. Patient minimally responsive this morning, opens eyes to name and states her name is Yisel. Follows some commands. Appears very weak and ill-appearing. Discussed plan of care with niece over the phone. Discussed need for possible dialysis. She is potentially agreeable to proceed if it would be temporary. She will be in this afternoon with the final decision. Review of Systems Review of Systems: All systems reviewed & are unremarkable except as noted in HPI and below Exam Narrative: General: ill-appearing Eyes: EOMI ENT: neck supple Cardiovascular: Regular rate and rhythm Respiratory: Clear to auscultation, respirations even and unlabored on RA Gastrointestinal: Soft, non tender Genitourinary: no suprapubic tenderness, villalba draining purulent urine Musculoskeletal: No edema, multiple necrotic toe wounds, no drainage. Skin: warm, dry Neuro: Somnolent, oriented x1. Follows some commands. Psych: Mood appropriate Objective Data Vital Signs Vital Signs: Vital Signs - 24 hr 03/26/25 17:29 03/26/25 17:41 03/26/25 18:03 Temperature Pulse Rate 114 H 114 H Respiratory Rate 17 17 Blood Pressure 98/58 L Pulse Oximetry 94 Oxygen Delivery Room Air Room Air 03/26/25 18:15 03/26/25 18:19 03/26/25 18:30 Temperature 99 F Pulse Rate 114 H 113 H 114 H Respiratory Rate 20 16 15 Blood Pressure 119/60 Pulse Oximetry 100 Oxygen Delivery 03/26/25 18:45 03/26/25 19:00 03/26/25 19:45 Temperature Pulse Rate 114 H 136 H 133 H Respiratory Rate 16 14 16 Blood Pressure Pulse Oximetry 97 Oxygen Delivery 03/26/25 20:00 03/26/25 20:14 03/26/25 20:15 Temperature Pulse Rate 134 H 119 H 119 H Respiratory Rate 17 12 15 Blood Pressure 100/51 L Pulse Oximetry 98 Oxygen Delivery 03/26/25 20:16 03/26/25 20:18 03/26/25 20:30 Temperature Pulse Rate 118 H 118 H 112 H Respiratory Rate 17 14 13 Blood Pressure 102/60 102/60 Pulse Oximetry 96 97 Oxygen Delivery 03/26/25 20:31 03/26/25 20:45 03/26/25 20:46 Temperature Pulse Rate 116 H 117 H 114 H Respiratory Rate 14 12 14 Blood Pressure 114/61 116/72 Pulse Oximetry Oxygen Delivery 03/26/25 21:00 03/26/25 21:01 03/26/25 21:15 Temperature Pulse Rate 112 H 113 H 135 H Respiratory Rate 15 13 14 Blood Pressure 119/70 119/70 Pulse Oximetry 96 Oxygen Delivery 03/26/25 21:15 03/26/25 21:16 03/26/25 21:30 Temperature Pulse Rate 135 H 135 H 134 H Respiratory Rate 15 14 16 Blood Pressure 108/51 L Pulse Oximetry Oxygen Delivery 03/26/25 21:31 03/26/25 21:59 03/26/25 22:00 Temperature Pulse Rate 133 H 113 H 112 H Respiratory Rate 16 15 13 Blood Pressure 130/65 Pulse Oximetry Oxygen Delivery 03/26/25 22:01 03/26/25 22:02 03/26/25 23:52 Temperature Pulse Rate 113 H 113 H 131 H Respiratory Rate 15 17 14 Blood Pressure 148/71 H 114/64 Pulse Oximetry 97 100 Oxygen Delivery 03/27/25 00:36 03/27/25 01:28 03/27/25 02:08 Temperature 98.5 F 97.2 F L Pulse Rate 132 H 111 H Respiratory Rate 20 18 Blood Pressure 98/66 L 122/75 Pulse Oximetry 94 96 Oxygen Delivery Room Air 03/27/25 05:49 Temperature 97.1 F L Pulse Rate 70 Respiratory Rate 14 Blood Pressure 100/58 L Pulse Oximetry 100 Oxygen Delivery Intake/Output Intake/Output: Intake & Output 03/24/25 03/25/25 03/26/25 03/27/25 23:59 23:59 23:59 23:59 Intake Total 3050 0 Output Total 150 50 Balance 2900 -50 Meds/Results Medications: Active Medications Generic Name Dose Route Start Last Admin Trade Name Freq PRN Reason Stop Dose Admin Acetaminophen 650 mg 03/26/25 21:38 Acetaminophen 325 Mg Tablet PO Q4H PRN Mild Pain (1-3) or Fever Artificial Tears 2 drop 03/27/25 06:42 Artificial Tears Ophth Soln 15 Ml Bottle EACH EYE Q12H PRN dry eye(s) Aspirin 81 mg 03/27/25 09:00 Aspirin 81 Mg Enteric Tablet PO 04/26/25 08:59 DAILY TELLO Bisacodyl 10 mg 03/27/25 06:42 Bisacodyl 10 Mg Suppository RECTAL DAILY PRN Constipation Carvedilol 6.25 mg 03/27/25 09:00 Carvedilol 6.25 Mg Tablet PO BID TELLO Diclofenac Sodium 1 applic 03/27/25 06:42 Diclofenac Sodium 1% 100 Gm Gel (*Bkc) TOPICAL Q4H PRN Joint pain Duloxetine HCl 60 mg 03/27/25 09:00 Duloxetine Hcl 60 Mg Capsule.Dr PO DAILY TELLO Famotidine 20 mg 03/27/25 09:00 Famotidine 20 Mg Tablet PO DAILY TELLO Ferrous Sulfate 325 mg 03/27/25 09:00 Ferrous Sulfate 325 Mg Tablet PO 04/26/25 08:59 DAILY [facility] Heparin Sodium (Porcine) 5,000 units 03/27/25 09:00 Heparin Sodium 5,000 Units/Ml Vial SUB-Q Q12HR [facility] Hydrocortisone 1 applic 03/27/25 06:42 Hydrocortisone 1% 30 Gm Cream TOPICAL Q12H PRN Hemorrhoids Ceftriaxone Sodium 1 gm/ 50 mls @ 100 mls/hr 03/27/25 21:00 Sodium Chloride IVPB Q24H TELLO Sodium Chloride 1,000 mls @ 125 mls/hr 03/26/25 21:40 03/26/25 23:52 Normal Saline Iv IV CONT 125 mls/hr .Q8H [facility] Administration Lactic Acid 1 applic 03/27/25 09:00 Lactic Acid 12% Lotion 225 Btl TOPICAL 04/26/25 08:59 DAILY [facility] Mirtazapine 7.5 mg 03/27/25 21:00 Mirtazapine 7.5 Mg Tablet PO HS [facility] Miscellaneous Information 0 each 03/27/25 06:56 Central Supply Item XX 03/28/25 06:55 PRN PRN Informational Miscellaneous Information 0 each 03/27/25 00:01 Nonformulary Drug (Albuterol-Budesonide [Airsupra] 90-80 Mcg/Actuation Hfa Aerosol Inhaler XX 04/26/25 00:00 CLARIFY [facility] Non-Formulary Medication 2 inhalation 03/27/25 06:42 Albuterol-Budesonide [Airsupra] INHALATION Q6H PRN shortness of breath Ondansetron HCl 4 mg 03/26/25 21:38 Ondansetron Inj 4 Mg/2 Ml Vial IV PUSH Q4H PRN Nausea Vitamin D 1,000 mcg 03/27/25 09:00 Cholecalciferol (Vitamin D3) 125 Mcg (5,000 Units) Tablet PO DAILY [facility] Radiology Results: ITS Impressions Head CT 03/26/25 19:31 IMPRESSION: 1. No acute intracranial findings. 2. Extensive, bilaterally symmetric chronic small vessel ischemic changes. Chest X-Ray 03/26/25 19:36 IMPRESSION: 1. No acute pulmonary findings. Significant atherosclerotic aorta. 2. Severe arthritis of both shoulders. Labs Labs: Laboratory Results - last 24 hr 03/26/25 03/26/25 03/26/25 19:15 19:44 20:20 WBC 12.2 H RBC 3.87 L Hgb 10.4 L Hct 31.9 L MCV 82.4 MCH 26.9 MCHC 32.6 RDW 17.8 H Plt Count 379 H MPV 10.9 H Immature Gran % (Auto) 1.6 H Neut % (Auto) 76.2 H Lymph % (Auto) 13.6 L Granite % (Auto) 8.4 Eos % (Auto) 0.0 Baso % (Auto) 0.2 Lymph # (Auto) 1.65 Granite # (Auto) 1.0 H Eos # (Auto) 0.0 Baso # (Auto) 0.0 Abs Immat Gran (auto) 0.20 H Absolute Neuts (auto) 9.3 H Absolute Nucleated RBC 0.210 H Nucleated RBC % 1.7 H PT 13.9 INR 1.1 APTT 24.7 Sodium 139 Potassium 4.3 Chloride 107 Carbon Dioxide 21 L Anion Gap 11 BUN 89 H Creatinine 7.48 H Estim Creat Clear Calc 6 Estimated GFR 5 L Glucose 139 H Lactic Acid 2.5 H Calcium 8.2 L Magnesium 2.2 Total Bilirubin 1.1 AST 32 ALT 30 Alkaline Phosphatase 107 Troponin I 0.127 H* NT-Pro-B Natriuret Pep 21592 H Total Protein 6.6 Albumin 3.0 L Procalcitonin 0.5 Urine Color Dark yellow Urine Appearance Turbid H Urine pH 6.0 Ur Specific [place] 1.030 Urine Protein 2+ H Urine Glucose (UA) Negative Urine Ketones Negative Ur Blood (Man) 3+ H Urine Nitrate Negative Urine Bilirubin 1+ H Urine Urobilinogen 0.2 Leukocyte Esterase Rfl 3+ H Urine RBC 21-50 H Urine WBC >100 Ur Squamous Epith Cells None seen Urine Bacteria 3+ H Influenza A (RT-PCR) Negative Influenza B (RT-PCR) Negative RSV (RT-PCR) Negative SARS-CoV-2 RNA (RT-PCR) Negative 03/26/25 21:56 WBC RBC Hgb Hct MCV MCH MCHC RDW Plt Count MPV Immature Gran % (Auto) Neut % (Auto) Lymph % (Auto) Granite % (Auto) Eos % (Auto) Baso % (Auto) Lymph # (Auto) Granite # (Auto) Eos # (Auto) Baso # (Auto) Abs Immat Gran (auto) Absolute Neuts (auto) Absolute Nucleated RBC Nucleated RBC % PT INR APTT Sodium Potassium Chloride Carbon Dioxide Anion Gap BUN Creatinine Estim Creat Clear Calc Estimated GFR Glucose Lactic Acid 2.2 H Calcium Magnesium Total Bilirubin AST ALT Alkaline Phosphatase Troponin I 0.117 H* NT-Pro-B Natriuret Pep Total Protein Albumin Procalcitonin Urine Color Urine Appearance Urine pH Ur Specific [place] Urine Protein Urine Glucose (UA) Urine Ketones Ur Blood (Man) Urine Nitrate Urine Bilirubin Urine Urobilinogen Leukocyte Esterase Rfl Urine RBC Urine WBC Ur Squamous Epith Cells Urine Bacteria Influenza A (RT-PCR) Influenza B (RT-PCR) RSV (RT-PCR) SARS-CoV-2 RNA (RT-PCR)
[2025-03-27 08:39] LABS: Hematocrit 30.0 % (37.0-47.0); Hemoglobin 9.1 g/dL (12.0-15.0); Immature Granulocyte Percent A 1.9 % (0-0.5); Lymphocytes Absolute Auto 1.58 K/mm3 (0.9-3.2); Mean Corpuscular HGB Conc 30.3 g/dl (32-36); Mean Corpuscular Hemoglobin 26.5 pg (26-34); Mean Corpuscular Volume 87.5 fl (80-100); Nucleated Red Blood Cells Absolute Auto 0.140 K/mm3 (0.0-0.012); Nucleated Red Blood Cells Perc 1.1 % (0.0-0.2); Platelet Count Result 284 k/mm3 (150-375); Red Blood Count 3.43 M/mm3 (4.2-5.4); White Blood Count 12.8 K/mm3 (4.5-10.0)
[2025-03-27 08:54] LABS: Anion Gap 9 mmol/L (4-12); Blood Urea Nitrogen 80 mg/dL (7-17); Calcium 7.1 mg/dL (8.4-10.2); Carbon Dioxide 16 mmol/L (22-30); Chloride 116 mmol/L (98-107); Estimated CRCL calculation 7 ml/min; Estimated Glomerular Filt Rate 6; Glucose 88 mg/dL (65-110); Potassium 4.1 mmol/L (3.4-5.0); Sodium 141 mmol/L (137-145)
[2025-03-27] MEDS: SODIUM CHLORIDE 0.9% IV 1,000 ML 100 ML IV CONT (09:32)
--- NOTE | 2025-03-27 10:58 | PC.NURSE ---
Pt drowsy this morning and will wake up to say her name but won't answer any other questions. I do not feel it is safe to give medications this AM. The provider is aware and agreed to hold this AM medications.
--- NOTE | 2025-03-27 11:05 | PM.CNNEP ---
Assessment and Plan Assessment and plan (1) Acute kidney injury: Code(s): N17.9 - Acute kidney failure, unspecified Status: Acute Assessment and Plan: as noted by admission labs (creatinine 7.48mg/dL) minimal improvement since admission no critical electrolytes but poor urine output (despite aggreeive IVFs) and metabolic acidosis worsening mental status/encephalopathy could be a manifestation of uremia suspect multifactorial etiology: prerenal factors infection/early sepsis (UTI) diuretic therapy prior to admission other(?) check urine studies, renal ultrasound, and CPK she remains at high risk for renal replacement therapy/dialysis originally, patient was not in favor of this intervention however, they are willing to proceed if this is a temporary measure no urgency (stable electrolytes) but her diminished UOP is concerning will follow trend fo UOP but suspect she may need intervention in then next 24 hours follow trend of repeat labs and UOP (2) Stage 3b chronic kidney disease: Code(s): N18.32 - Chronic kidney disease, stage 3b Status: Chronic Assessment and Plan: present at least as far back as 2019 creatinine has fluctuated to extremes, particularly associated with acute hospitalizations baseline creatinine seems to run ~ 1.7 - 2.2mg/dl from review of records at [facility] and [facility] this causes her to fluctuate between CKD stage 3b and stage 4 felt to be secondary to hypertension, diabetes, vascular disease, and age-related disease coupled with frequent UTIs and flucutating hydration/oral intake (3) UTI (urinary tract infection): Qualifiers: Urinary tract infection type: acute cystitis Hematuria presence: with hematuria Qualified Code(s): N30.01 - Acute cystitis with hematuria Code(s): N39.0 - Urinary tract infection, site not specified Status: Acute (4) Dementia: Qualifiers: Dementia type: unspecified type Dementia severity: severe Dementia behavioral or psychological symptom: with other behavioral disturbance Qualified Code(s): F03.C18 - Unspecified dementia, severe, with other behavioral disturbance Code(s): F03.90 - Unspecified dementia, unspecified severity, without behavioral disturbance, psychotic disturbance, mood disturbance, and anxiety Status: Chronic Assessment and Plan: quite severe from electronic chart review... per last discharge summary at [facility] (January 2025): thought to be vascular dementia from small-vessel disease seen on head imaging...workup for reversible causes of dementia this admission was negative, including syphilis, B12, HIV, and thyroid studies...patient's worsening functional status and mental decline is consistent with severe dementia, likely end-stage given poor p.o. intake and waxing and waning mental status. (5) Type 2 diabetes mellitus: Qualifiers: Diabetes mellitus [facility] insulin use: without [facility] use Diabetes mellitus complication status: with kidney complications Diabetes mellitus complication detail: with chronic kidney disease Chronic kidney disease stage: unspecified stage Qualified Code(s): E11.22 - Type 2 diabetes mellitus with diabetic chronic kidney disease Code(s): E11.9 - Type 2 diabetes mellitus without complications Status: Acute History of Present Illness Reason for Consult Consult date: 03/28/25 Reason for consult: acute renal failure Chief Complaint Chief complaint: UTI, acute kidney injury, altered mental status Review of Systems Review of Systems: As per HPI. [facility], [facility] Past Medical History Medical History (Updated 03/28/25 @ 08:38 by Holly Jay MD) Anxiety and depression Dementia Type 2 diabetes mellitus Essential hypertension CHF (congestive heart failure) CVA (cerebral vascular accident) Surgical History Surgical History (Updated 03/27/25 @ 06:53 by Tanisha Montenegro DO) Surgical history unknown Social History Social History Smoking status: Unknown if ever smoked Spiritual care concerns: No Meds Home Medications and Allergies Home Medications ?Medication ?Instructions ?Recorded ?Confirmed ?Type acetaminophen 325 mg capsule 650 mg PO Q4H PRN pain 03/27/25 03/27/25 History albuterol 90 mcg-budesonide 80 2 inh inhalation Q6H PRN shortness 03/27/25 03/27/25 History mcg/actuation HFA aerosol inhaler of breath (Airsupra) ammonium lactate 12 % lotion 1 applic topical DAILY 03/27/25 03/27/25 History (AmLactin) ascorbic acid (vitamin C) 500 mg 500 mg PO DAILY 03/27/25 03/27/25 History capsule aspirin 81 mg tablet 81 mg PO DAILY 03/27/25 03/27/25 History atorvastatin 40 mg tablet 40 mg PO HS 03/27/25 03/27/25 History bisacodyl 10 mg rectal suppository 10 mg RECTAL DAILY PRN constipation 03/27/25 03/27/25 History calamine 1 ea topical Q8H PRN itching 03/27/25 03/27/25 History carvedilol 6.25 mg tablet 6.25 mg PO BID 03/27/25 03/27/25 History cholecalciferol (vitamin D3) 25 1,000 unit PO DAILY 03/27/25 03/27/25 History mcg (1,000 unit) capsule cranberry extract 250 mg tablet 250 mg PO DAILY 03/27/25 03/27/25 History diclofenac sodium 1 % topical gel 2 g topical Q4H PRN pain 03/27/25 03/27/25 History diphenhydramine HCl 25 mg capsule 25 mg PO Q6H PRN itching 03/27/25 03/27/25 History (Aler-Cap) duloxetine 60 mg capsule,delayed 60 mg PO DAILY 03/27/25 03/27/25 History release famotidine 20 mg tablet 20 mg PO DAILY 03/27/25 03/27/25 History ferrous sulfate 325 mg (65 mg 325 mg PO DAILY 03/27/25 03/27/25 History iron) tablet (FeroSul) furosemide 40 mg tablet 40 mg PO DAILY 03/27/25 03/27/25 History hydrocortisone 1 % topical cream 1 applic topical Q12H PRN 03/27/25 03/27/25 History (Ala-Rubens) hemorrhoids magnesium citrate 296 ml PO DAILY PRN constipation 03/27/25 03/27/25 History magnesium hydroxide 400 mg/5 mL 30 ml PO HS PRN constipation 03/27/25 03/27/25 History oral suspension (Milk of Magnesia) methyl salicylate 10 % topical 1 applic topical Q4H PRN muscle 03/27/25 03/27/25 History cream pain metronidazole 1 % topical cream 1 applic topical Q12H 03/27/25 03/27/25 History (Noritate) miconazole nitrate 2 % topical 1 spray topical Q12H 03/27/25 03/27/25 History spray powder (Athlete's Foot) mirtazapine 7.5 mg tablet 7.5 mg PO HS 03/27/25 03/27/25 History multivitamin (Daily Multi-Vitamin 1 tablet PO DAILY 03/27/25 03/27/25 History tablet) nystatin 100,000 unit/gram topical 1 applic topical BID 03/27/25 03/27/25 History powder ondansetron HCl 4 mg tablet 4 mg PO Q6H PRN nausea and vomiting 03/27/25 03/27/25 History ophthalmic irrigation solution 2 drp ophthalmic (eye) Q12H PRN 03/27/25 03/27/25 History drops dry eye(s) polyethylene glycol 3350 17 17 g PO DAILY PRN constipation 03/27/25 03/27/25 History gram/dose oral powder (ClearLax) povidone-iodine 10 % topical 1 applic topical DAILY 03/27/25 03/27/25 History solution (Betadine) sitagliptin 25 mg tablet 25 mg PO DAILY 03/27/25 03/27/25 History sodium phosphates 19 gram-7 118 ml RECTAL DAILY PRN 03/27/25 03/27/25 History gram/118 mL enema (Enema) constipation triamcinolone acetonide 0.1 % 1 applic topical BID 03/27/25 03/27/25 History topical cream zinc 50 mg capsule 50 mg PO DAILY 03/27/25 03/27/25 History zinc oxide 10 % topical spray 1 applic topical BID 03/27/25 03/27/25 History (Beba Bottoms Diaper Rash) Allergies Allergy/AdvReac Type Severity Reaction Status Date / Time No Known Allergies Allergy Verified 03/27/25 01:53 Vital Signs Vital Signs Temp Pulse Resp BP Pulse Ox O2 Del Method 03/27/25 10:57 107 H 03/27/25 09:20 Room Air 03/27/25 05:49 97.1 F L 70 14 100/58 L 100 03/27/25 02:08 Room Air 03/27/25 01:28 97.2 F L 111 H 18 122/75 96 03/27/25 00:36 98.5 F 132 H 20 98/66 L 94 03/26/25 23:52 131 H 14 114/64 100 03/26/25 22:02 113 H 17 03/26/25 22:01 113 H 15 148/71 H 97 03/26/25 22:00 112 H 13 03/26/25 21:59 113 H 15 03/26/25 21:31 133 H 16 130/65 03/26/25 21:30 134 H 16 03/26/25 21:16 135 H 14 108/51 L 03/26/25 21:15 135 H 15 03/26/25 21:15 135 H 14 119/70 96 03/26/25 21:01 113 H 13 119/70 03/26/25 21:00 112 H 15 03/26/25 20:46 114 H 14 116/72 03/26/25 20:45 117 H 12 03/26/25 20:31 116 H 14 114/61 03/26/25 20:30 112 H 13 03/26/25 20:18 118 H 14 102/60 97 03/26/25 20:16 118 H 17 102/60 96 03/26/25 20:15 119 H 15 98 03/26/25 20:14 119 H 12 100/51 L 03/26/25 20:00 134 H 17 03/26/25 19:45 133 H 16 03/26/25 19:00 136 H 14 97 03/26/25 18:45 114 H 16 03/26/25 18:30 114 H 15 Exam Narrative: GENERAL APPEARANCE: ill appearing female in no acute distress HEENT: normocephalic, atraumatic, normal conjunctiva and sclera, nares patient NECK: no lymphadenopathy, thyromegaly, or JVD MOUTH: dry mucus membranes CARDIOVASCULAR: tachycardic but normal S1 and S2, no rub RESPIRATORY: clear to auscultation bilaterally ABDOMEN: soft, nontender, nondistended, positive bowel sounds present EXTREMITIES: no evidence of cyanosis, clubbing, or edema; necrotic toe wounds NEUROLOGICAL: lethargic/somnolent -- non-communicative Results Lab Results 03/28/25 04:56 03/28/25 04:56 Lab results: Most recent lab results ABG pH 7.354 (7.350-7.450) 03/27/25 17:46 ABG pCO2 25.9 mmHg (35.0-45.0) L 03/27/25 17:46 ABG pO2 86.9 mmHg (80.0-100.0) 03/27/25 17:46 ABG HCO3 14.1 mEq/l (22.0-26.0) L 03/27/25 17:46 ABG O2 Saturation 96.4 % (95.0-100.0) 03/27/25 17:46 Calcium 7.1 mg/dL (8.4-10.2) L 03/27/25 08:22 Magnesium 2.2 mg/dL (1.6-2.3) 03/26/25 19:15
[2025-03-27] MEDS: LACTIC ACID 12% LOTION 225 BTL 1 APPLIC TOPICAL (11:22)
--- NOTE | 2025-03-27 13:10 | ECG_ITS ---
Test Date: 2025-03-27 13:59:15 Measurements Intervals [place] Rate: 128 P: 0 MI: 0 QRS: 67 QRSD: 68 T: -31 QT: 283 QTc: 414 Interpretive Statements ATRIAL FLUTTER/TACHYCARDIA WITH RAPID VENTRICULAR RESPONSE ST-T WAVE ABNORMALITY IN ANTEROLAT/INF LEADS- CONSIDER ISCHEMIA BASELINE ARTIFACT- I, II, III, AVR, AVL ,AVF, V1 ABNORMAL ECG Compared to ECG 03/26/2025 22:38:16 NO SIGNIFICANT CHANGE Electronically Signed On 03-27-2025 14:01:18 INSTRUCTIONAL DESIGN TECHNOLOGIST by Marko Barahona D.O.
[2025-03-27 13:37] LABS: CRP 6.0 mg/dL (<1.0)
[2025-03-27] MEDS: METOPROLOL TARTRATE INJ 5 MG/5 ML VIAL 2.5 MG IV PUSH ×2 (14:59→22:25)
[2025-03-27] MEDS: MEROPENEM 500 MG in SODIUM CHLORIDE 0.9% IV 100 ML 200 ML IVPB (14:59)
--- NOTE | 2025-03-27 16:04 | PCSTNOTE ---
03/27/25 Attempted BSE 3:00 PM patient limited alertness attempt again 03/28.
--- NOTE | 2025-03-27 16:16 | WNDPHOTO ---
PHOTO ONLY - See Nursing Notes and/ or assessments for documentation.
--- NOTE | 2025-03-27 16:18 | WNDPHOTO ---
PHOTO ONLY - See Nursing Notes and/ or assessments for documentation.
--- NOTE | 2025-03-27 16:50 | PM.IMPN2 ---
Assessment and Plan Assessment and Plan (1) Sepsis: Qualifiers: Sepsis type: sepsis due to unspecified organism Sepsis acute organ dysfunction status: with acute organ dysfunction Severe sepsis acute organ dysfunction type: acute renal failure Acute renal failure type: unspecified Severe sepsis shock status: without septic shock Qualified Code(s): A41.9 - Sepsis, unspecified organism; R65.20 - Severe sepsis without septic shock; N17.9 - Acute kidney failure, unspecified Code(s): A41.9 - Sepsis, unspecified organism Status: Acute (2) UTI (urinary tract infection): Qualifiers: Urinary tract infection type: acute cystitis Hematuria presence: with hematuria Qualified Code(s): N30.01 - Acute cystitis with hematuria Code(s): N39.0 - Urinary tract infection, site not specified Status: Acute (3) Acute kidney injury: Code(s): N17.9 - Acute kidney failure, unspecified Status: Acute (4) Acute encephalopathy: Code(s): G93.40 - Encephalopathy, unspecified Status: Acute (5) Dementia: Qualifiers: Dementia type: unspecified type Dementia severity: severe Dementia behavioral or psychological symptom: with other behavioral disturbance Qualified Code(s): F03.C18 - Unspecified dementia, severe, with other behavioral disturbance Code(s): F03.90 - Unspecified dementia, unspecified severity, without behavioral disturbance, psychotic disturbance, mood disturbance, and anxiety Status: Acute (6) Type 2 diabetes mellitus: Qualifiers: Diabetes mellitus penitentiary insulin use: without intermediate teacher use Diabetes mellitus complication status: with kidney complications Diabetes mellitus complication detail: with chronic kidney disease Chronic kidney disease stage: unspecified stage Qualified Code(s): E11.22 - Type 2 diabetes mellitus with diabetic chronic kidney disease Code(s): E11.9 - Type 2 diabetes mellitus without complications Status: Acute (7) Elevated troponin: Code(s): R79.89 - Other specified abnormal findings of blood chemistry Status: Acute Plan This is a 69-year-old female who presents to the ED from [facility] due to elevated creatinine on outpatient lab. She has also had altered mental status with increased lethargy. Patient was recently admitted to outside hospital with KRISTEN and UTI and was treated with resolution of KRISTEN. UTI with urine culture growing Enterococcus faecalis as well as ESBL E coli. Since no urinary symptoms this was considered to be contaminant and hence not treated. Family at noted patient progressively test responsive over the course of weak and hence sent to the ED for evaluation. In ED she was tachycardic blood pressure was adequate. Laboratory data revealed WBC of 12.2 hemoglobin 10.4 platelet count 379. Sodium 139 potassium 4.3 chloride 107 bicarbonate 21 BUN 89 and creatinine 7.48 blood sugar of 139 her discharge creatinine was 1.7 in January 2025. BNP 00434 troponin was elevated to 7 with serial troponin flat. Active elevated at 2.5. Urinalysis was positive for UTI with urine WBC more than 100 influenza RSV COVID swab was negative. LFTs were normal. Procalcitonin 0.5 patient received IV fluid resuscitation CT head showed no acute findings extensive bilateral symmetric chronic small-vessel ischemic changes were noted. Chest x-ray with no acute pulmonary findings. Severe arthritis of both shoulders noted. EKG showed sinus tachycardia with ST-T changes. Patient deemed to be septic with UTI with concomitant evidence of acute kidney injury. She has or liquid uric without KRISTEN and profoundly dehydrated. She has underlying advanced dementia She received 3-4 L of IV fluid bolus. Will continue maintenance IV fluids with normal saline at 100 cc an hour. Blood culture urine culture has been obtained. Given recent urine culture finding with E coli ESBL and Enterococcus faecalis antibiotics were switched to meropenem. Goals of care discussion with regard to ongoing acute kidney injury with initiation of dialysis given uremia and worsening acidosis initiation of dialysis has been decided. There surgery has been consulted to place the temporary dialysis catheter to initiate dialysis. Renal ultrasound with no findings of hydronephrosis. Villalba catheter has been placed. Continue to monitor intake and output strictly. Will continue IV fluid resuscitation add albumin to continue to maintain volume status. Monitor strict I&Os. AFib with RVR noted 03/27/2025. IV metoprolol scheduled. Transferred to IMU. History of severe dementia Sacral/heel pressure ulcers no signs of infection wound care following. correction resident Type 2 diabetes Hypertension History of congestive heart failure with elevated BNP History of stroke DVT prophylaxis heparin subQ Code status modified code Subjective Date/time seen: 03/27/25 16:50 Interval history: Reviewed chart. Reviewed with Melissa. Evaluated the patient. Patient somnolent however follow some commands Review of Systems Review of Systems: All systems reviewed & are unremarkable except as noted in HPI and below Exam Narrative: General: ill-appearing not in acute distress somnolent Eyes: EOMI ENT: neck supple Cardiovascular: Tachycardic in low 100s S1-S2 Respiratory: Diminished breath sounds bilaterally not in acute respiratory distress Gastrointestinal: Soft, non tender Genitourinary: no suprapubic tenderness, villalba draining purulent urine Musculoskeletal: No edema, multiple necrotic toe wounds, no drainage. Skin: warm, dry Neuro: Somnolent, oriented x1 to 2. Follows some commands. Psych: flat affect Objective Data Vital Signs Vital Signs: Vital Signs - 24 hr 03/26/25 17:29 03/26/25 17:41 03/26/25 18:03 Temperature Pulse Rate 114 H 114 H Respiratory Rate 17 17 Blood Pressure 98/58 L Pulse Oximetry 94 Oxygen Delivery Room Air Room Air 03/26/25 18:15 03/26/25 18:19 03/26/25 18:30 Temperature 99 F Pulse Rate 114 H 113 H 114 H Respiratory Rate 20 16 15 Blood Pressure 119/60 Pulse Oximetry 100 Oxygen Delivery 03/26/25 18:45 03/26/25 19:00 03/26/25 19:45 Temperature Pulse Rate 114 H 136 H 133 H Respiratory Rate 16 14 16 Blood Pressure Pulse Oximetry 97 Oxygen Delivery 03/26/25 20:00 03/26/25 20:14 03/26/25 20:15 Temperature Pulse Rate 134 H 119 H 119 H Respiratory Rate 17 12 15 Blood Pressure 100/51 L Pulse Oximetry 98 Oxygen Delivery 03/26/25 20:16 03/26/25 20:18 03/26/25 20:30 Temperature Pulse Rate 118 H 118 H 112 H Respiratory Rate 17 14 13 Blood Pressure 102/60 102/60 Pulse Oximetry 96 97 Oxygen Delivery 03/26/25 20:31 03/26/25 20:45 03/26/25 20:46 Temperature Pulse Rate 116 H 117 H 114 H Respiratory Rate 14 12 14 Blood Pressure 114/61 116/72 Pulse Oximetry Oxygen Delivery 03/26/25 21:00 03/26/25 21:01 03/26/25 21:15 Temperature Pulse Rate 112 H 113 H 135 H Respiratory Rate 15 13 14 Blood Pressure 119/70 119/70 Pulse Oximetry 96 Oxygen Delivery 03/26/25 21:15 03/26/25 21:16 03/26/25 21:30 Temperature Pulse Rate 135 H 135 H 134 H Respiratory Rate 15 14 16 Blood Pressure 108/51 L Pulse Oximetry Oxygen Delivery 03/26/25 21:31 03/26/25 21:59 03/26/25 22:00 Temperature Pulse Rate 133 H 113 H 112 H Respiratory Rate 16 15 13 Blood Pressure 130/65 Pulse Oximetry Oxygen Delivery 03/26/25 22:01 03/26/25 22:02 03/26/25 23:52 Temperature Pulse Rate 113 H 113 H 131 H Respiratory Rate 15 17 14 Blood Pressure 148/71 H 114/64 Pulse Oximetry 97 100 Oxygen Delivery 03/27/25 00:36 03/27/25 01:28 03/27/25 02:08 Temperature 98.5 F 97.2 F L Pulse Rate 132 H 111 H Respiratory Rate 20 18 Blood Pressure 98/66 L 122/75 Pulse Oximetry 94 96 Oxygen Delivery Room Air 03/27/25 05:49 03/27/25 09:20 03/27/25 10:57 Temperature 97.1 F L Pulse Rate 70 107 H Respiratory Rate 14 Blood Pressure 100/58 L Pulse Oximetry 100 Oxygen Delivery Room Air 03/27/25 14:00 03/27/25 14:55 03/27/25 14:59 Temperature 98.4 F Pulse Rate 130 H 121 H 121 H Respiratory Rate 14 Blood Pressure 102/82 118/80 Pulse Oximetry 91 Oxygen Delivery Intake/Output Intake/Output: Intake & Output 03/24/25 03/25/25 03/26/25 03/27/25 23:59 23:59 23:59 23:59 Intake Total 3050 1000 Output Total 150 50 Balance 2900 950 Meds/Results Medications: Active Medications Generic Name Dose Route Start Last Admin Trade Name Freq PRN Reason Stop Dose Admin Acetaminophen 650 mg 03/26/25 21:38 Acetaminophen 325 Mg Tablet PO Q4H PRN Mild Pain (1-3) or Fever Artificial Tears 2 drop 03/27/25 06:42 Artificial Tears Ophth Soln 15 Ml Bottle EACH EYE Q12H PRN dry eye(s) Aspirin 81 mg 03/27/25 09:00 03/27/25 10:57 Aspirin 81 Mg Enteric Tablet PO 04/26/25 08:59 Not Given DAILY TELLO Bisacodyl 10 mg 03/27/25 06:42 Bisacodyl 10 Mg Suppository RECTAL DAILY PRN Constipation Dextrose 12.5 gm 03/27/25 11:02 Dextrose 50% 25 Gm/50 Ml Syringe IV PUSH PRN PRN Hypoglycemia Protocol Diclofenac Sodium 1 applic 03/27/25 06:42 Diclofenac Sodium 1% 100 Gm Gel (*Bkc) TOPICAL Q4H PRN Joint pain Duloxetine HCl 60 mg 03/27/25 09:00 03/27/25 10:57 Duloxetine Hcl 60 Mg Capsule.Dr PO Not Given DAILY [facility] Famotidine 20 mg 03/27/25 09:00 03/27/25 10:58 Famotidine 20 Mg Tablet PO Not Given DAILY [facility] Ferrous Sulfate 325 mg 03/27/25 09:00 03/27/25 10:58 Ferrous Sulfate 325 Mg Tablet PO 04/26/25 08:59 Not Given DAILY [facility] Glucagon 1 mg 03/27/25 11:02 Glucagon For Inj 1 Mg Vial IM PRN PRN Hypoglycemia Protocol Glucose 15 gm 03/27/25 11:02 Glucose Oral Gel 15 Gm Of Glucse In 37.5 Gm Tube PO PRN PRN Hypoglycemia Protocol Heparin Sodium (Porcine) 5,000 units 03/27/25 09:00 03/27/25 11:18 Heparin Sodium 5,000 Units/Ml Vial SUB-Q 5,000 units Q12HR TELLO Administration Hydrocortisone 1 applic 03/27/25 06:42 Hydrocortisone 1% 30 Gm Cream TOPICAL Q12H PRN Hemorrhoids Dextrose 1,000 mls @ 100 mls/hr 03/27/25 11:02 Dextrose 5% 1,000 Ml IVPB PRN PRN Hypoglycemia Protocol Meropenem 500 mg/ Sodium 100 mls @ 200 mls/hr 03/27/25 14:00 03/27/25 14:59 Chloride IVPB 200 mls/hr DAILY@1400 [facility] Administration Albumin Human 100 mls @ 60 mls/hr 03/27/25 18:00 Albutein IVPB 03/28/25 13:39 Q6HR [facility] Sodium Chloride 1,000 mls @ 75 mls/hr 03/27/25 15:50 Normal Saline Iv IV CONT .[id number] [facility] Insulin Aspart 2 - 5 units 03/27/25 12:00 03/27/25 11:57 Insulin Aspart (*Bkc) 100 Units/Ml SUB-Q Not Given TIDWM [facility] Protocol Lactic Acid 1 applic 03/27/25 09:00 03/27/25 11:22 Lactic Acid 12% Lotion 225 Btl TOPICAL 04/26/25 08:59 1 applic DAILY TELLO Administration Metoprolol Tartrate 2.5 mg 03/27/25 21:00 Metoprolol Tartrate Inj 5 Mg/5 Ml Vial IV PUSH Q6H TELLO Mirtazapine 7.5 mg 03/27/25 21:00 Mirtazapine 7.5 Mg Tablet PO HS TELLO Miscellaneous Information 0 each 03/27/25 06:56 Central Supply Item XX 03/28/25 06:55 PRN PRN Informational Ondansetron HCl 4 mg 03/26/25 21:38 Ondansetron Inj 4 Mg/2 Ml Vial IV PUSH Q4H PRN Nausea Perflutren Lipid Microsphere 0 ml 03/27/25 13:20 Perflutren Lipid Microspheres 1.5 Ml Vial Diluted To 10 Ml Total Volume IV PUSH 03/30/25 13:20 ONCE PRN adequate visualization Protocol Vitamin D 1,000 mcg 03/27/25 09:00 03/27/25 10:57 Cholecalciferol (Vitamin D3) 125 Mcg (5,000 Units) Tablet PO Not Given DAILY [facility] Radiology Results: ITS Impressions Head CT 03/26/25 19:31 IMPRESSION: 1. No acute intracranial findings. 2. Extensive, bilaterally symmetric chronic small vessel ischemic changes. Chest X-Ray 03/26/25 19:36 IMPRESSION: 1. No acute pulmonary findings. Significant atherosclerotic aorta. 2. Severe arthritis of both shoulders. Renal Ultrasound 03/27/25 14:05 IMPRESSION: Very limited examination with no gross hydronephrosis or large renal masses. If more discrete evaluation of the kidneys is required, consider CT or MRI. The urinary bladder is nondistended with catheter placed. Cholelithiasis incidentally noted in the partially visualized gallbladder. Labs Labs: Laboratory Results - last 24 hr 03/26/25 03/26/25 03/26/25 19:15 19:44 20:20 WBC 12.2 H RBC 3.87 L Hgb 10.4 L Hct 31.9 L MCV 82.4 MCH 26.9 MCHC 32.6 RDW 17.8 H Plt Count 379 H MPV 10.9 H Immature Gran % (Auto) 1.6 H Neut % (Auto) 76.2 H Lymph % (Auto) 13.6 L [place] % (Auto) 8.4 Eos % (Auto) 0.0 Baso % (Auto) 0.2 Lymph # (Auto) 1.65 [place] # (Auto) 1.0 H Eos # (Auto) 0.0 Baso # (Auto) 0.0 Abs Immat Gran (auto) 0.20 H Absolute Neuts (auto) 9.3 H Absolute Nucleated RBC 0.210 H Nucleated RBC % 1.7 H PT 13.9 INR 1.1 APTT 24.7 Sodium 139 Potassium 4.3 Chloride 107 Carbon Dioxide 21 L Anion Gap 11 BUN 89 H Creatinine 7.48 H Estim Creat Clear Calc 6 Estimated GFR 5 L Glucose 139 H POC Capillary Glucose Lactic Acid 2.5 H Calcium 8.2 L Magnesium 2.2 Total Bilirubin 1.1 AST 32 ALT 30 Alkaline Phosphatase 107 Troponin I 0.127 H* C-Reactive Protein NT-Pro-B Natriuret Pep 94720 H Total Protein 6.6 Albumin 3.0 L Procalcitonin 0.5 Urine Color Dark yellow Urine Appearance Turbid H Urine pH 6.0 Ur Specific [place]ountain 1.030 Urine Protein 2+ H Urine Glucose (UA) Negative Urine Ketones Negative Ur Blood (Man) 3+ H Urine Nitrate Negative Urine Bilirubin 1+ H Urine Urobilinogen 0.2 Leukocyte Esterase Rfl 3+ H Urine RBC 21-50 H Urine WBC >100 Ur Squamous Epith Cells None seen Urine Bacteria 3+ H Influenza A (RT-PCR) Negative Influenza B (RT-PCR) Negative RSV (RT-PCR) Negative SARS-CoV-2 RNA (RT-PCR) Negative 03/26/25 03/27/25 03/27/25 21:56 08:22 11:35 WBC 12.8 H RBC 3.43 L Hgb 9.1 L Hct 30.0 L MCV 87.5 D MCH 26.5 MCHC 30.3 L RDW 18.3 H Plt Count 284 MPV 10.5 H Immature Gran % (Auto) 1.9 H Neut % (Auto) 76.0 H Lymph % (Auto) 12.3 L [place] % (Auto) 9.5 H Eos % (Auto) 0.1 Baso % (Auto) 0.2 Lymph # (Auto) 1.58 [place] # (Auto) 1.2 H Eos # (Auto) 0.0 Baso # (Auto) 0.0 Abs Immat Gran (auto) 0.24 H Absolute Neuts (auto) 9.7 H Absolute Nucleated RBC 0.140 H Nucleated RBC % 1.1 H PT INR APTT Sodium 141 Potassium 4.1 Chloride 116 H Carbon Dioxide 16 L Anion Gap 9 BUN 80 H Creatinine 7.03 H Estim Creat Clear Calc 7 Estimated GFR 6 L Glucose 88 POC Capillary Glucose 98 Lactic Acid 2.2 H Calcium 7.1 L Magnesium Total Bilirubin AST ALT Alkaline Phosphatase Troponin I 0.117 H* C-Reactive Protein 6.0 H NT-Pro-B Natriuret Pep Total Protein Albumin Procalcitonin Urine Color Urine Appearance Urine pH Ur Specific Fountain Urine Protein Urine Glucose (UA) Urine Ketones Ur Blood (Man) Urine Nitrate Urine Bilirubin Urine Urobilinogen Leukocyte Esterase Rfl Urine RBC Urine WBC Ur Squamous Epith Cells Urine Bacteria Influenza A (RT-PCR) Influenza B (RT-PCR) RSV (RT-PCR) SARS-CoV-2 RNA (RT-PCR) 03/27/25 16:47 WBC RBC Hgb Hct MCV MCH MCHC RDW Plt Count MPV Immature Gran % (Auto) Neut % (Auto) Lymph % (Auto) [place] % (Auto) Eos % (Auto) Baso % (Auto) Lymph # (Auto) [place] # (Auto) Eos # (Auto) Baso # (Auto) Abs Immat Gran (auto) Absolute Neuts (auto) Absolute Nucleated RBC Nucleated RBC % PT INR APTT Sodium Potassium Chloride Carbon Dioxide Anion Gap BUN Creatinine Estim Creat Clear Calc Estimated GFR Glucose POC Capillary Glucose 68 Lactic Acid Calcium Magnesium Total Bilirubin AST ALT Alkaline Phosphatase Troponin I C-Reactive Protein NT-Pro-B Natriuret Pep Total Protein Albumin Procalcitonin Urine Color Urine Appearance Urine pH Ur Specific Fountain Urine Protein Urine Glucose (UA) Urine Ketones Ur Blood (Man) Urine Nitrate Urine Bilirubin Urine Urobilinogen Leukocyte Esterase Rfl Urine RBC Urine WBC Ur Squamous Epith Cells Urine Bacteria Influenza A (RT-PCR) Influenza B (RT-PCR) RSV (RT-PCR) SARS-CoV-2 RNA (RT-PCR)
[2025-03-27] MEDS: DEXTROSE 50% 25 GM/50 ML SYRINGE IV PUSH (16:51)
[2025-03-27] MEDS: SODIUM CHLORIDE 0.9% IV 1,000 ML 75 ML IV CONT (16:59)
--- NOTE | 2025-03-27 17:00 | PC.NURSE ---
This patient, Yisel Alvarez, was transferred to [room 232 in IMU] on 03/27/25 at 1910. Personal belongings sent with patient. Report given to [Mary]. Appropriate documentation sent with patient.
[2025-03-27] MEDS: ALBUMIN HUMAN 25% 25 GM/100 ML 100 ML IVPB (17:07)
[2025-03-27 18:07] LABS: Alveolar/Arterial O2 Gradient 31.8 mmHg; Fractional Inspired Oxygen 21 %; HCO3 ABG 14.1 mEq/l (22.0-26.0); Oxygen Content ABG 12.6 %vol (16.0-22.0); Oxygen Saturation ABG 96.4 % (95.0-100.0); PCO2 ABG 25.9 mmHg (35.0-45.0); PO2 ABG 86.9 mmHg (80.0-100.0); PO2 FiO2 Ratio Arterial Blood 4.14 %
[2025-03-27 18:09] LABS: Liters per Minute 0.0 LPM; Modified Allen's Test Pass; Site Drawn RIGHT BRACHIAL
--- NOTE | 2025-03-27 18:17 | PCRCNOTE ---
ABG WAS DELAYED DUE TO HARD, PHYSCIAN WAS AWARE OF HARD STICK
[2025-03-27 18:41] LABS: Anion Gap 10 mmol/L (4-12); Blood Urea Nitrogen 77 mg/dL (7-17); Calcium 7.1 mg/dL (8.4-10.2); Carbon Dioxide 16 mmol/L (22-30); Chloride 116 mmol/L (98-107); Estimated CRCL calculation 7 ml/min; Estimated Glomerular Filt Rate 6; Glucose 116 mg/dL (65-110); Potassium 3.6 mmol/L (3.4-5.0); Sodium 142 mmol/L (137-145)
[2025-03-27] MEDS: SODIUM BICARBONATE 8.4% 150 MEQ in DEXTROSE 5% 1,000 ML 950 ML 75 MEQ IV CONT (18:46)
--- NOTE | 2025-03-27 19:05 | PC.NURSE ---
After arrival to the unit, this RN contacted Kathryn to further clarify wounds to upper thighs. Nurse on the phone was unable to answer any questions regarding the wounds. PT bathed, wounds addressed and documented on. Melissa made aware of wounds. Spoke with daughter when she arrived and she was unsure of what the wounds could be from.
[2025-03-28] VITALS (29 sets, daily range): BP systolic 92–141; BP diastolic 31–66; PULSE 69–113; RESP 12–24; TEMP 36.3–37.7; O2SAT 92–100
--- NOTE | 2025-03-28 | ECHO_ITS ---
Patient Info Name: Yisel Alvarez Age: 69 years : 1955 Gender: Female Ht: 62 in Wt: 176 lbs BSA: 1.90 m2 HR: 102 bpm BP: 121 / 42 mmHg Heart Rhythm: Tachycardia Technical Quality: Fair Exam Date: 03/28/2025 8:06 AM Patient Status: I Admit Date: 03/27/2025 Exam Type: CA echo dop color flow w con Complete two-dimensional, color flow and Doppler transthoracic echocardiogram is performed with contrast to opacify the left ventricle and to improve the deliniation of the left ventricle endocardial borders. Staff Referring Physician: James Torres DO Field Party Manager: Tasha Puga Attending Provider: Tanisha Montenegro DO Contrast/Agitated Saline Contrast/Ag. Saline: Definity Amount: 2.00 ml Administered By: Tasha Puga Existing IV Access: Yes IV Access Condition: patent with no signs of infiltration Summary 1. Left ventricular systolic function is hyperdynamic, estimated at >70. 2. There is mildly increased left ventricular wall thickness. 3. There is trace tricuspid valve regurgitation. 4. No pulmonary hypertension, estimated pulmonary arterial systolic pressure is 29 mmHg. Left Ventricle Left ventricular chamber dimension is normal. Left ventricular systolic function is hyperdynamic, estimated at >70. There is mildly increased left ventricular wall thickness. Left ventricular septal wall motion is normal. The left ventricular diastolic function is abnormal. Right Ventricle Right ventricular chamber dimension is normal. Right ventricular systolic function is normal. Left Atria Left atrial chamber dimension is normal. Right Atria Right atrial chamber dimension is normal. Aortic Valve The aortic valve is trileaflet. There is no aortic valve sclerosis. There is no aortic valve stenosis. There is no aortic valve regurgitation. Pulmonic Valve The pulmonic valve is normal. There is no pulmonic valve stenosis. There is no pulmonic regurgitation. Mitral Valve The mitral valve has normal leaflets. There is no mitral valve stenosis. There is no mitral valve regurgitation. There is mild mitral valve calcification. Tricuspid Valve The tricuspid valve leaflets are normal. There is no significant tricuspid valve stenosis. There is trace tricuspid valve regurgitation. No pulmonary hypertension, estimated pulmonary arterial systolic pressure is 29 mmHg. Pericardium/Pleural The pericardium appears normal. There is no pericardial effusion. Inferior Vena Cava Not well visualized inferior vena cava. Aorta The aortic root size at the sinus of Valsalva is normal. The prox ascending aorta size is normal. Left Ventricular Outflow Tract Name Value Normal LVOT 2D LVOT Diameter 2.0 cm LVOT Doppler LVOT Peak Velocity 115 cm/s LVOT Peak Gradient 5 mmHg LVOT Mean Gradient 2 mmHg LVOT VTI 21 cm LVOT VTI/AV VTI Ratio 0.7 LVOT Stroke Volume 65 ml LVOT CO 6.2 l/min LVOT CI 3.3 l/min/m2 Pulmonic Valve Name Value Normal RVOT Doppler RVOT Peak Velocity 73 cm/s RVOT Peak Gradient 2 mmHg PV Doppler PV Peak Velocity 75 cm/s PV Peak Gradient 2 mmHg Mitral Valve Name Value Normal MV Diastolic Function MV E Peak Velocity 88 cm/s MV A Peak Velocity 93 cm/s MV E/A 0.9 MV Decel Time (PW) 198 ms MV Annular TDI MV E/e' (Septal) 7.4 MV E/e' (Lateral) 14.2 MV E/e' (Average) 10.8 Tricuspid Valve Name Value Normal TV Regurgitation Doppler TR Peak Velocity 219 cm/s TR Peak Gradient 19 mmHg Estimated PAP/RSVP RA Pressure 10 mmHg <=5 PA Systolic Pressure 29 mmHg <36 RV Systolic Pressure 29 mmHg <36 TV Annular TDI TV Lateral Soco s' Velocity 7.8 cm/s >=9.5 Aorta Name Value Normal Ascending Aorta Ao Root Diameter (MM) 2.5 cm Ao Root Diam Index (MM) 1.3 cm/m2 Aortic Valve Name Value Normal AV Doppler AV Peak Velocity 179 cm/s AV Peak Gradient 10 mmHg AV Mean Gradient 4 mmHg AV VTI 30 cm AV Area (Cont Eq VTI) 2.2 cm2 >=3.0 AV Area (Cont Eq Sander) 2.0 cm2 AV DI (Sander) 0.64 AV Regurgitation 2D LVOT Area 3.1 cm2 Ventricles Name Value Normal LV Dimensions 2D/MM IVS Diastolic Thickness (2D) 1.0 cm 0.6-1.0 LVID Diastole (2D) 4.0 cm 3.8-5.2 LVIW Diastolic Thickness (2D) 0.9 cm 0.6-0.9 LVID Systole (2D) 2.2 cm 2.2-3.5 LVOT Diameter 2.0 cm LV Mass (2D Cubed) 122.45 g 67.00-162.00 LV Mass Index (2D Cubed) 64 g/m2 43-95 Relative Wall Thickness (2D) 0.44 <=0.42 LV Fractional Shortening/Ejection Fraction 2D/MM LV Fractional Shortening (2D) 46 % 27-45 LV EF (2D Teichholz) 78 % LV Diastolic Volume (4C MOD) 71 ml LV EF (4C MOD) 79 % LV Diastolic Volume (2C MOD) 51 ml LV EF (2C MOD) 82 % LV Diastolic Volume (BP MOD) 62 ml 46-106 LV Diastolic Volume Index (BP MOD) 33 ml/m2 29-61 LV Systolic Volume (BP MOD) 12 ml 14-42 LV Systolic Volume Index (BP MOD) 6 ml/m2 8-24 LV EF (BP MOD) 81 % 54-74 LV Diastolic Length (4C) 5.9 cm LV Systolic Length (4C) 4.9 cm LV Stroke Volume (4C MOD) 57 ml Atria Name Value Normal LA Dimensions LA Dimension (MM) 4.0 cm 2.7-3.8 LA Volume (4C A-L) 46 ml LA Volume (BP A-L) 50 ml RA Dimensions RA Area (4C) 12.8 cm2 <=18.0 Report Signatures
[2025-03-28] MEDS: ALBUMIN HUMAN 25% 25 GM/100 ML 100 ML IVPB ×3 (00:16→17:31)
[2025-03-28] MEDS: METOPROLOL TARTRATE INJ 5 MG/5 ML VIAL 2.5 MG IV PUSH ×4 (03:11→21:15)
[2025-03-28 05:05] LABS: Hematocrit 22.6 % (37.0-47.0); Hemoglobin 7.2 g/dL (12.0-15.0); Immature Granulocyte Percent A 2.2 % (0-0.5); Lymphocytes Absolute Auto 1.57 K/mm3 (0.9-3.2); Mean Corpuscular HGB Conc 31.9 g/dl (32-36); Mean Corpuscular Hemoglobin 26.2 pg (26-34); Mean Corpuscular Volume 82.2 fl (80-100); Nucleated Red Blood Cells Absolute Auto 0.090 K/mm3 (0.0-0.012); Nucleated Red Blood Cells Perc 0.8 % (0.0-0.2); Platelet Count Result 211 k/mm3 (150-375); Red Blood Count 2.75 M/mm3 (4.2-5.4); White Blood Count 11.7 K/mm3 (4.5-10.0)
[2025-03-28 05:23] LABS: Hemoglobin A1C 5.2 % (<5.7)
[2025-03-28 05:33] LABS: Alanine Aminotransferase 26 U/L (6-35); Albumin Level 2.8 g/dL (3.5-5.1); Anion Gap 11 mmol/L (4-12); Aspartate Amino Transferase 31 U/L (14-36); Blood Urea Nitrogen 75 mg/dL (7-17); CRP 6.9 mg/dL (<1.0); Calcium 7.3 mg/dL (8.4-10.2); Carbon Dioxide 19 mmol/L (22-30); Chloride 114 mmol/L (98-107); Creatine Kinase 177 U/L (30-135); Estimated CRCL calculation 7 ml/min; Estimated Glomerular Filt Rate 6; Glucose 82 mg/dL (65-110); Potassium 3.1 mmol/L (3.4-5.0); Sodium 144 mmol/L (137-145); Total Protein 5.5 g/dL (6.3-8.2)
[2025-03-28 05:43] LABS: Alkaline Phosphatase 71 U/L (38-126); Bilirubin,Total 1.0 mg/dL (0.2-1.3)
[2025-03-28 05:54] LABS: Hepatitis B Surface Antigen Negative (Negative); Thyroid Stimulating Hormone Reflex 0.746 uIU/mL (0.465-4.68)
[2025-03-28 06:12] LABS: Hepatitis B Surface Anti Res Negative
--- NOTE | 2025-03-28 08:03 | PM.CNCAR ---
Assessment and Plan Assessment and plan (1) Atrial fibrillation: Code(s): I48.91 - Unspecified atrial fibrillation Status: Acute (2) Acute kidney injury: Code(s): N17.9 - Acute kidney failure, unspecified Status: Acute (3) Essential hypertension: Code(s): I10 - Essential (primary) hypertension Status: Acute (4) Dementia: Qualifiers: Dementia type: unspecified type Dementia severity: severe Dementia behavioral or psychological symptom: with other behavioral disturbance Qualified Code(s): F03.C18 - Unspecified dementia, severe, with other behavioral disturbance Code(s): F03.90 - Unspecified dementia, unspecified severity, without behavioral disturbance, psychotic disturbance, mood disturbance, and anxiety Status: Chronic Plan -atrial fibrillation, new diagnosis -advanced dimension -history of hypertension -severe anemia -acute renal failure -in regards to AFib, new diagnosis. Rate controlled. Continue carvedilol which she takes at home for rate control. At that that is this patient is a candidate for anticoagulation given advanced severe dementia and severe anemia. -in regards to acute renal failure, management per primary team -regards hypertension, continue carvedilol -gas to severe anemia, hemoglobin dropped from 9-7 History of Present Illness History of Present Illness Consult date/time: 03/28/25 08:03 Requesting physician: Melissa Vernon PA Consult reason: atrial fibrillation Reason For Visit: UTI, acute kidney injury, altered mental status Narrative: 69-year-old female with a past medical history of dementia, CVA, essential hypertension, CHF and diabetes who presented to the ER from [facility] due to elevated creatinine on outpatient labs. The patient is unable to provide any history and will only open her eyes to verbal stimuli. She will not follow commands or communicate. Evidently the labs were performed due to patient being more altered than baseline. Family reported that the patient had been progressively less responsive over the course of the week. The patient was sent into the ER for evaluation. She is in AFib with controlled heart rate. Sometimes sinus rhythm frequent PACs. Patient is laying some non and in bed in flat position. She appears to be cachectic. On room air. Nonverbal. Her eyes closed Hemoglobin on admission 9.1 and today 7.2. Creatinine on admission 6.95. Potassium today 3.1. White cell count 12.8 K Chest x-ray reviewed and as myself on admission unremarkable. EKG initially sinus tachycardia repeat EKG atrial fibrillation. Review of Systems Review of Systems: ROS unobtainable: Yes unobtainable due to mental status (Underlying dementia. Patient is nonverbal) [facility] Past Medical History Medical History Anxiety and depression Dementia Type 2 diabetes mellitus Essential hypertension CHF (congestive heart failure) CVA (cerebral vascular accident) Surgical History Surgical History Surgical history unknown Social History Social History Smoking status: Unknown if ever smoked Spiritual care concerns: No Meds Home Medications and Allergies Home Medications ?Medication ?Instructions ?Recorded ?Confirmed ?Type acetaminophen 325 mg capsule 650 mg PO Q4H PRN pain 03/27/25 03/27/25 History albuterol 90 mcg-budesonide 80 2 inh inhalation Q6H PRN shortness 03/27/25 03/27/25 History mcg/actuation HFA aerosol inhaler of breath (Airsupra) ammonium lactate 12 % lotion 1 applic topical DAILY 03/27/25 03/27/25 History (AmLactin) ascorbic acid (vitamin C) 500 mg 500 mg PO DAILY 03/27/25 03/27/25 History capsule aspirin 81 mg tablet 81 mg PO DAILY 03/27/25 03/27/25 History atorvastatin 40 mg tablet 40 mg PO HS 03/27/25 03/27/25 History bisacodyl 10 mg rectal suppository 10 mg RECTAL DAILY PRN constipation 03/27/25 03/27/25 History calamine 1 ea topical Q8H PRN itching 03/27/25 03/27/25 History carvedilol 6.25 mg tablet 6.25 mg PO BID 03/27/25 03/27/25 History cholecalciferol (vitamin D3) 25 1,000 unit PO DAILY 03/27/25 03/27/25 History mcg (1,000 unit) capsule cranberry extract 250 mg tablet 250 mg PO DAILY 03/27/25 03/27/25 History diclofenac sodium 1 % topical gel 2 g topical Q4H PRN pain 03/27/25 03/27/25 History diphenhydramine HCl 25 mg capsule 25 mg PO Q6H PRN itching 03/27/25 03/27/25 History (Aler-Cap) duloxetine 60 mg capsule,delayed 60 mg PO DAILY 03/27/25 03/27/25 History release famotidine 20 mg tablet 20 mg PO DAILY 03/27/25 03/27/25 History ferrous sulfate 325 mg (65 mg 325 mg PO DAILY 03/27/25 03/27/25 History iron) tablet (FeroSul) furosemide 40 mg tablet 40 mg PO DAILY 03/27/25 03/27/25 History hydrocortisone 1 % topical cream 1 applic topical Q12H PRN 03/27/25 03/27/25 History (Ala-Rubens) hemorrhoids magnesium citrate 296 ml PO DAILY PRN constipation 03/27/25 03/27/25 History magnesium hydroxide 400 mg/5 mL 30 ml PO HS PRN constipation 03/27/25 03/27/25 History oral suspension (Milk of Magnesia) methyl salicylate 10 % topical 1 applic topical Q4H PRN muscle 03/27/25 03/27/25 History cream pain metronidazole 1 % topical cream 1 applic topical Q12H 03/27/25 03/27/25 History (Noritate) miconazole nitrate 2 % topical 1 spray topical Q12H 03/27/25 03/27/25 History spray powder (Athlete's Foot) mirtazapine 7.5 mg tablet 7.5 mg PO HS 03/27/25 03/27/25 History multivitamin (Daily Multi-Vitamin 1 tablet PO DAILY 03/27/25 03/27/25 History tablet) nystatin 100,000 unit/gram topical 1 applic topical BID 03/27/25 03/27/25 History powder ondansetron HCl 4 mg tablet 4 mg PO Q6H PRN nausea and vomiting 03/27/25 03/27/25 History ophthalmic irrigation solution 2 drp ophthalmic (eye) Q12H PRN 03/27/25 03/27/25 History drops dry eye(s) polyethylene glycol 3350 17 17 g PO DAILY PRN constipation 03/27/25 03/27/25 History gram/dose oral powder (ClearLax) povidone-iodine 10 % topical 1 applic topical DAILY 03/27/25 03/27/25 History solution (Betadine) sitagliptin 25 mg tablet 25 mg PO DAILY 03/27/25 03/27/25 History sodium phosphates 19 gram-7 118 ml RECTAL DAILY PRN 03/27/25 03/27/25 History gram/118 mL enema (Enema) constipation triamcinolone acetonide 0.1 % 1 applic topical BID 03/27/25 03/27/25 History topical cream zinc 50 mg capsule 50 mg PO DAILY 03/27/25 03/27/25 History zinc oxide 10 % topical spray 1 applic topical BID 03/27/25 03/27/25 History (Beba Bottoms Diaper Rash) Allergies Allergy/AdvReac Type Severity Reaction Status Date / Time No Known Allergies Allergy Verified 03/27/25 01:53 Vital Signs Vital Signs - 24 hr 03/27/25 09:20 03/27/25 10:57 03/27/25 14:00 Temperature 36.9 C Pulse Rate 107 H 130 H Respiratory Rate 14 Blood Pressure 102/82 Pulse Oximetry 91 Oxygen Delivery Room Air 03/27/25 14:55 03/27/25 14:59 03/27/25 16:00 Temperature Pulse Rate 121 H 121 H 101 H Respiratory Rate Blood Pressure 118/80 Pulse Oximetry Oxygen Delivery 03/27/25 17:00 03/27/25 17:36 03/27/25 20:00 Temperature 36.6 C Pulse Rate 96 104 H Respiratory Rate 16 Blood Pressure 104/34 L Pulse Oximetry 94 96 Oxygen Delivery Room Air 03/27/25 20:00 03/27/25 20:47 03/27/25 21:58 Temperature 37.1 C Pulse Rate 107 H Respiratory Rate 16 Blood Pressure 121/45 L Pulse Oximetry 93 95 95 Oxygen Delivery Room Air Room Air 03/27/25 22:25 03/28/25 00:00 03/28/25 00:00 Temperature Pulse Rate 107 H 88 Respiratory Rate Blood Pressure Pulse Oximetry 93 Oxygen Delivery Room Air 03/28/25 00:40 03/28/25 02:00 03/28/25 03:11 Temperature 37.7 C H Pulse Rate 105 H 100 97 Respiratory Rate 16 Blood Pressure 103/45 L Pulse Oximetry 92 Oxygen Delivery 03/28/25 04:00 03/28/25 04:00 03/28/25 06:00 Temperature 37.4 C Pulse Rate 94 102 H Respiratory Rate 16 Blood Pressure 121/42 L Pulse Oximetry 93 100 Oxygen Delivery Room Air Exam Const: Other: Not in distress HENMT: Other: No epistaxis Eyes: Other: Eyes closed Neck: Other: Supple Chest: Other: Symmetric lung expansion Resp: Other: Symmetric lung expansion Cardio: Other: No myeloma GI: Other: No distension Skin: Other: No rash Neuro: Other: Eyes closed. Nonverbal. Underlying dementia Extrem: Other: No edema Psych: Other: Advanced dementia Results Labs and Meds 03/28/25 04:56 03/28/25 04:56 Lab results: Cardiac Enzymes 03/28/25 Range/Units 04:56 AST 31 (14-36) U/L CBC 03/27/25 03/28/25 Range/Units 08:22 04:56 WBC 12.8 H 11.7 H (4.5-10.0) K/mm3 RBC 3.43 L 2.75 L (4.2-5.4) M/mm3 Hgb 9.1 L 7.2 L (12.0-15.0) g/dL Hct 30.0 L 22.6 L (37.0-47.0) % Plt Count 284 211 (150-375) k/mm3 Lymph # (Auto) 1.58 1.57 (0.9-3.2) K/mm3 Roberts # (Auto) 1.2 H 1.0 H (0.1-0.6) K/mm3 Eos # (Auto) 0.0 0.0 (0-0.3) K/mm3 Baso # (Auto) 0.0 0.0 (0.0-0.1) K/mm3 Comprehensive Metabolic Panel 03/27/25 03/27/25 03/28/25 Range/Units 08:22 18:04 04:56 Sodium 141 142 144 (137-145) mmol/L Potassium 4.1 3.6 3.1 L (3.4-5.0) mmol/L Chloride 116 H 116 H 114 H (98-107) mmol/L Carbon Dioxide 16 L 16 L 19 L (22-30) mmol/L BUN 80 H 77 H 75 H (7-17) mg/dL Creatinine 7.03 H 6.95 H 6.77 H (0.7-1.0) mg/dL Glucose 88 116 H 82 (65-110) mg/dL Calcium 7.1 L 7.1 L 7.3 L (8.4-10.2) mg/dL AST 31 (14-36) U/L ALT 26 (6-35) U/L Alkaline Phosphatase 71 (38-126) U/L Total Protein 5.5 L (6.3-8.2) g/dL Albumin 2.8 L (3.5-5.1) g/dL Intake and Output 03/27/25 03/28/25 03/28/25 23:59 07:59 15:59 Intake Total 100 100 Output Total 50 100 Balance 50 0 Intake: IV 100 100 Albumin Human 25% 25 gm/100 ml 100 100 100 ml @ 60 mls/hr IVPB Q6HR [facility] Rx#:[id number] Output: Catheter Urine 50 100 Urethral Catheter 50 100 Patient Weight 03/28/25 23:59 Weight 80.1 kg
[2025-03-28] MEDS: PERFLUTREN LIPID MICROSPHERES 1.5 ML VIAL DILUTED TO 10 ML TOTAL VOLUME IV PUSH (08:50)
--- NOTE | 2025-03-28 09:08 | IVDEFINITY ---
Prior to administration of IV Definity the patient was educated on the risks and benefits of the imaging enhancing agent including potential adverse side effects. The patient verbalized understanding. Allergies were verified. No exclusion criteria were identified and at least one of the following inclusion criteria were met: 1) physician request, 2) patient technically difficult to image (per the [place] [employer] guidelines of two or more segments not discernable within the apical view), or 3) questionable left ventricular function. ?
[2025-03-28] MEDS: PANTOPRAZOLE SODIUM IV 40 MG VIAL IV PUSH (09:18)
[2025-03-28] MEDS: LACTIC ACID 12% LOTION 225 BTL 1 APPLIC TOPICAL (09:21)
--- NOTE | 2025-03-28 10:20 | PCSTNOTE ---
Patient would not arouse by opening her eyes for RN who also had medication to present; BSE unable to be completed at this time 9:15 AM. May try later this morning or tomorrow, if needed.
[2025-03-28 10:42] LABS: Urine Eos QC 2nd Tech Confirmed
[2025-03-28 10:45] LABS: Urea Random Urine 305 MG/DL
[2025-03-28 10:51] LABS: Urea Random Urine 309 MG/DL
--- NOTE | 2025-03-28 10:52 | P.PNIM_ITS ---
Assessment and Plan Assessment and Plan (1) Sepsis: Qualifiers: Sepsis type: sepsis due to unspecified organism Sepsis acute organ dysfunction status: with acute organ dysfunction Severe sepsis acute organ dysfunction type: acute renal failure Acute renal failure type: unspecified Severe sepsis shock status: without septic shock Qualified Code(s): A41.9 - Sepsis, unspecified organism; R65.20 - Severe sepsis without septic shock; N17.9 - Acute kidney failure, unspecified Code(s): A41.9 - Sepsis, unspecified organism Status: Acute (2) UTI (urinary tract infection): Qualifiers: Urinary tract infection type: acute cystitis Hematuria presence: with hematuria Qualified Code(s): N30.01 - Acute cystitis with hematuria Code(s): N39.0 - Urinary tract infection, site not specified Status: Acute (3) Acute kidney injury: Code(s): N17.9 - Acute kidney failure, unspecified Status: Acute (4) Acute encephalopathy: Code(s): G93.40 - Encephalopathy, unspecified Status: Acute (5) Dementia: Qualifiers: Dementia type: unspecified type Dementia severity: severe Dementia behavioral or psychological symptom: with other behavioral disturbance Qualified Code(s): F03.C18 - Unspecified dementia, severe, with other behavioral disturbance Code(s): F03.90 - Unspecified dementia, unspecified severity, without behavioral disturbance, psychotic disturbance, mood disturbance, and anxiety Status: Chronic (6) Type 2 diabetes mellitus: Qualifiers: Diabetes mellitus custodial insulin use: without termite control representative use Diabetes mellitus complication status: with kidney complications Diabetes mellitus complication detail: with chronic kidney disease Chronic kidney disease stage: unspecified stage Qualified Code(s): E11.22 - Type 2 diabetes mellitus with diabetic chronic kidney disease Code(s): E11.9 - Type 2 diabetes mellitus without complications Status: Acute (7) Elevated troponin: Code(s): R79.89 - Other specified abnormal findings of blood chemistry Status: Acute Plan This is a 69-year-old female who presents to the ED from [facility] due to elevated creatinine on outpatient lab. She has also had altered mental status with increased lethargy. Patient was recently admitted to outside hospital with KRISTEN and UTI and was treated with resolution of KRISTEN. UTI with urine culture growing Enterococcus faecalis as well as ESBL E coli. Since no urinary symptoms this was considered to be contaminant and hence not treated. Family at noted patient progressively test responsive over the course of weak and hence sent to the ED for evaluation. In ED she was tachycardic blood pressure was adequate. Laboratory data revealed WBC of 12.2 hemoglobin 10.4 platelet count 379. Sodium 139 potassium 4.3 chloride 107 bicarbonate 21 BUN 89 and creatinine 7.48 blood sugar of 139 her discharge creatinine was 1.7 in January 2025. BNP 12874 troponin was elevated to 7 with serial troponin flat. Active elevated at 2.5. Urinalysis was positive for UTI with urine WBC more than 100 influenza RSV COVID swab was negative. LFTs were normal. Procalcitonin 0.5 patient received IV fluid resuscitation CT head showed no acute findings extensive bilateral symmetric chronic small- vessel ischemic changes were noted. Chest x-ray with no acute pulmonary findings. Severe arthritis of both shoulders noted. EKG showed sinus tachycardia with ST-T changes. Patient deemed to be septic with UTI with concomitant evidence of acute kidney injury. She has or liquid uric without KRISTEN and profoundly dehydrated. She has underlying advanced dementia She received 3-4 L of IV fluid bolus. Will continue maintenance IV fluids with normal saline at 100 cc an hour. Blood culture urine culture has been obtained. Given recent urine culture finding with E coli ESBL and Enterococcus faecalis antibiotics were switched to meropenem. Goals of care discussion with regard to ongoing acute kidney injury with initiation of dialysis given uremia and worsening acidosis initiation of dialysis has been decided. There surgery has been consulted to place the temporary dialysis catheter to initiate dialysis. Renal ultrasound with no findings of hydronephrosis. Villalba catheter has been placed. Continue to monitor intake and output strictly. Will continue IV fluid resuscitation add albumin to continue to maintain volume status. Monitor strict I&Os. AFib with RVR noted 03/27/2025. IV metoprolol scheduled. Transferred to IMU. Cardiology consulted currently rate controlled on metoprolol scheduled. Telemetry reviewed History of severe dementia Anemia with further drop in H&H will hold heparin subQ not a candidate for anticoagulation for AFib Sacral/heel pressure ulcers no signs of infection wound care following. [facility] resident Type 2 diabetes Hypertension History of congestive heart failure with elevated BNP History of stroke DVT prophylaxis heparin subQ Code status modified code Subjective Date/time seen: 03/28/25 10:52 Interval history: Patient remains oliguric. Still somnolent. Only follow some commands. Review of Systems Review of Systems: All systems reviewed & are unremarkable except as noted in HPI and below Exam Narrative: General: ill-appearing not in acute distress somnolent Eyes: EOMI ENT: neck supple Cardiovascular: Tachycardic in low 100s S1-S2 Respiratory: Diminished breath sounds bilaterally not in acute respiratory distress Gastrointestinal: Soft, non tender Genitourinary: no suprapubic tenderness, villalba draining purulent urine Musculoskeletal: No edema, multiple necrotic toe wounds, no drainage. Skin: warm, dry Neuro: Somnolent, oriented x1 to 2. Follows some commands. Psych: flat affect Objective Data Vital Signs Vital Signs: Vital Signs - 24 hr 03/27/25 10:57 03/27/25 14:00 03/27/25 14:55 Temperature 98.4 F Pulse Rate 107 H 130 H 121 H Respiratory Rate 14 Blood Pressure 102/82 118/80 Pulse Oximetry 91 Oxygen Delivery 03/27/25 14:59 03/27/25 16:00 03/27/25 17:00 Temperature Pulse Rate 121 H 101 H Respiratory Rate Blood Pressure Pulse Oximetry 94 Oxygen Delivery Room Air 03/27/25 17:36 03/27/25 20:00 03/27/25 20:00 Temperature 97.9 F Pulse Rate 96 104 H Respiratory Rate 16 Blood Pressure 104/34 L Pulse Oximetry 96 93 Oxygen Delivery Room Air 03/27/25 20:47 03/27/25 21:58 03/27/25 22:25 Temperature 98.8 F Pulse Rate 107 H 107 H Respiratory Rate 16 Blood Pressure 121/45 L Pulse Oximetry 95 95 Oxygen Delivery Room Air 03/28/25 00:00 03/28/25 00:00 03/28/25 00:40 Temperature 99.9 F H Pulse Rate 88 105 H Respiratory Rate 16 Blood Pressure 103/45 L Pulse Oximetry 93 92 Oxygen Delivery Room Air 03/28/25 02:00 03/28/25 03:11 03/28/25 04:00 Temperature Pulse Rate 100 97 Respiratory Rate Blood Pressure Pulse Oximetry 93 Oxygen Delivery Room Air 03/28/25 04:00 03/28/25 06:00 03/28/25 08:26 Temperature 99.3 F 98.0 F Pulse Rate 94 102 H 91 Respiratory Rate 16 24 H Blood Pressure 121/42 L 104/31 L Pulse Oximetry 100 100 Oxygen Delivery 03/28/25 09:27 Temperature Pulse Rate 89 Respiratory Rate Blood Pressure Pulse Oximetry Oxygen Delivery Intake/Output Intake/Output: Intake & Output 03/25/25 03/26/25 03/27/25 03/28/25 23:59 23:59 23:59 23:59 Intake Total 3050 1200 200 Output Total 150 100 100 Balance 2900 1100 100 Meds/Results Medications: Active Medications Generic Name Dose Route Start Last Admin Trade Name Freq PRN Reason Stop Dose Admin Acetaminophen 650 mg 03/26/25 21:38 Acetaminophen 325 Mg Tablet PO Q4H PRN Mild Pain (1-3) or Fever Artificial Tears 2 drop 03/27/25 06:42 Artificial Tears Ophth Soln 15 Ml Bottle EACH EYE Q12H PRN dry eye(s) Aspirin 81 mg 03/27/25 09:00 03/28/25 09:21 Aspirin 81 Mg Enteric Tablet PO 04/26/25 08:59 Not Given DAILY TELLO Bisacodyl 10 mg 03/27/25 06:42 Bisacodyl 10 Mg Suppository RECTAL DAILY PRN Constipation Dextrose 12.5 gm 03/27/25 11:02 03/27/25 16:51 Dextrose 50% 25 Gm/50 Ml Syringe IV PUSH 12.5 gm PRN PRN Administration Hypoglycemia Protocol Diclofenac Sodium 1 applic 03/27/25 06:42 Diclofenac Sodium 1% 100 Gm Gel (*Bkc) TOPICAL Q4H PRN Joint pain Glucagon 1 mg 03/27/25 11:02 Glucagon For Inj 1 Mg Vial IM PRN PRN Hypoglycemia Protocol Glucose 15 gm 03/27/25 11:02 Glucose Oral Gel 15 Gm Of Glucse In 37.5 Gm Tube PO PRN PRN Hypoglycemia Protocol Heparin Sodium (Porcine) 5,000 units 03/27/25 09:00 03/28/25 09:21 Heparin Sodium 5,000 Units/Ml Vial SUB-Q 5,000 units Q12HR TELLO Administration Hydrocortisone 1 applic 03/27/25 06:42 Hydrocortisone 1% 30 Gm Cream TOPICAL Q12H PRN Hemorrhoids Dextrose 1,000 mls @ 100 mls/hr 03/27/25 11:02 Dextrose 5% 1,000 Ml IVPB PRN PRN Hypoglycemia Protocol Meropenem 500 mg/ Sodium 100 mls @ 200 mls/hr 03/27/25 14:00 03/27/25 15:29 Chloride IVPB Infused DAILY@1400 [facility] Infusion Albumin Human 100 mls @ 60 mls/hr 03/27/25 18:00 03/28/25 07:05 Albutein IVPB 03/28/25 13:39 Infused Q6HR TELLO Infusion Insulin Aspart 2 - 5 units 03/27/25 12:00 03/28/25 09:15 Insulin Aspart (*Bkc) 100 Units/Ml SUB-Q Not Given TIDWM [facility] Protocol Lactic Acid 1 applic 03/27/25 09:00 03/28/25 09:21 Lactic Acid 12% Lotion 225 Btl TOPICAL 04/26/25 08:59 1 applic DAILY TELLO Administration Metoprolol Tartrate 2.5 mg 03/27/25 21:00 03/28/25 09:27 Metoprolol Tartrate Inj 5 Mg/5 Ml Vial IV PUSH 2.5 mg Q6H TELLO Administration Ondansetron HCl 4 mg 03/26/25 21:38 Ondansetron Inj 4 Mg/2 Ml Vial IV PUSH Q4H PRN Nausea Pantoprazole Sodium 40 mg 03/28/25 09:00 03/28/25 09:18 Pantoprazole Sodium Iv 40 Mg Vial IV PUSH 40 mg QAM TELLO Administration Radiology Results: ITS Impressions Head CT 03/26/25 19:31 IMPRESSION: 1. No acute intracranial findings. 2. Extensive, bilaterally symmetric chronic small vessel ischemic changes. Renal Ultrasound 03/27/25 14:05 IMPRESSION: Very limited examination with no gross hydronephrosis or large renal masses. If more discrete evaluation of the kidneys is required, consider CT or MRI. The urinary bladder is nondistended with catheter placed. Cholelithiasis incidentally noted in the partially visualized gallbladder. Labs Labs: Laboratory Results - last 24 hr 03/27/25 03/27/25 03/27/25 08:22 11:35 16:47 WBC RBC Hgb Hct MCV MCH MCHC RDW Plt Count MPV Immature Gran % (Auto) Neut % (Auto) Lymph % (Auto) [place] % (Auto) Eos % (Auto) Baso % (Auto) Lymph # (Auto) [place] # (Auto) Eos # (Auto) Baso # (Auto) Abs Immat Gran (auto) Absolute Neuts (auto) Absolute Nucleated RBC Nucleated RBC % Puncture Site ABG pH ABG pCO2 ABG pO2 ABG PO2/FiO2 Ratio ABG HCO3 ABG O2 Saturation ABG O2 Content ABG Base Excess A-a Gradient Oxyhemoglobin Total Hemoglobin O2 Delivery Device O2 Liters/Min FiO2 Sodium Potassium Chloride Carbon Dioxide Anion Gap BUN Creatinine Estim Creat Clear Calc Estimated GFR Glucose POC Capillary Glucose 98 68 Hemoglobin A1c Calcium Phosphorus Total Bilirubin AST ALT Alkaline Phosphatase Total Creatine Kinase C-Reactive Protein 6.0 H Total Protein Albumin TSH (Reflex) Urine Eosinophils Ur Random Sodium Ur Random Urea Urine Creatinine Hep Bs Antigen Hep Bs Antibody 03/27/25 03/27/25 03/27/25 17:23 17:46 17:47 WBC RBC Hgb Hct MCV MCH MCHC RDW Plt Count MPV Immature Gran % (Auto) Neut % (Auto) Lymph % (Auto) [place] % (Auto) Eos % (Auto) Baso % (Auto) Lymph # (Auto) [place] # (Auto) Eos # (Auto) Baso # (Auto) Abs Immat Gran (auto) Absolute Neuts (auto) Absolute Nucleated RBC Nucleated RBC % Puncture Site Right brachial ABG pH 7.354 ABG pCO2 25.9 L ABG pO2 86.9 ABG PO2/FiO2 Ratio 4.14 ABG HCO3 14.1 L ABG O2 Saturation 96.4 ABG O2 Content 12.6 L ABG Base Excess -10.1 A-a Gradient 31.8 Oxyhemoglobin 95.7 Total Hemoglobin 9.3 L O2 Delivery Device Room air O2 Liters/Min 0.0 FiO2 21 Sodium Potassium Chloride Carbon Dioxide Anion Gap BUN Creatinine Estim Creat Clear Calc Estimated GFR Glucose POC Capillary Glucose 58 L* 66 Hemoglobin A1c Calcium Phosphorus Total Bilirubin AST ALT Alkaline Phosphatase Total Creatine Kinase C-Reactive Protein Total Protein Albumin TSH (Reflex) Urine Eosinophils Ur Random Sodium Ur Random Urea Urine Creatinine Hep Bs Antigen Hep Bs Antibody 03/27/25 03/27/25 03/28/25 18:04 18:10 00:26 WBC RBC Hgb Hct MCV MCH MCHC RDW Plt Count MPV Immature Gran % (Auto) Neut % (Auto) Lymph % (Auto) [place] % (Auto) Eos % (Auto) Baso % (Auto) Lymph # (Auto) [place] # (Auto) Eos # (Auto) Baso # (Auto) Abs Immat Gran (auto) Absolute Neuts (auto) Absolute Nucleated RBC Nucleated RBC % Puncture Site ABG pH ABG pCO2 ABG pO2 ABG PO2/FiO2 Ratio ABG HCO3 ABG O2 Saturation ABG O2 Content ABG Base Excess A-a Gradient Oxyhemoglobin Total Hemoglobin O2 Delivery Device O2 Liters/Min FiO2 Sodium 142 Potassium 3.6 Chloride 116 H Carbon Dioxide 16 L Anion Gap 10 BUN 77 H Creatinine 6.95 H Estim Creat Clear Calc 7 Estimated GFR 6 L Glucose 116 H POC Capillary Glucose 87 104 Hemoglobin A1c Calcium 7.1 L Phosphorus Total Bilirubin AST ALT Alkaline Phosphatase Total Creatine Kinase C-Reactive Protein Total Protein Albumin TSH (Reflex) Urine Eosinophils Ur Random Sodium Ur Random Urea Urine Creatinine Hep Bs Antigen Hep Bs Antibody 03/28/25 03/28/25 03/28/25 04:56 09:30 09:31 WBC 11.7 H RBC 2.75 L Hgb 7.2 L Hct 22.6 L MCV 82.2 D MCH 26.2 MCHC 31.9 L RDW 17.4 H Plt Count 211 MPV 10.0 Immature Gran % (Auto) 2.2 H Neut % (Auto) 75.6 H Lymph % (Auto) 13.5 L [place] % (Auto) 8.2 Eos % (Auto) 0.3 Baso % (Auto) 0.2 Lymph # (Auto) 1.57 [place] # (Auto) 1.0 H Eos # (Auto) 0.0 Baso # (Auto) 0.0 Abs Immat Gran (auto) 0.26 H Absolute Neuts (auto) 8.8 H Absolute Nucleated RBC 0.090 H Nucleated RBC % 0.8 H Puncture Site ABG pH ABG pCO2 ABG pO2 ABG PO2/FiO2 Ratio ABG HCO3 ABG O2 Saturation ABG O2 Content ABG Base Excess A-a Gradient Oxyhemoglobin Total Hemoglobin O2 Delivery Device O2 Liters/Min FiO2 Sodium 144 Potassium 3.1 L Chloride 114 H Carbon Dioxide 19 L Anion Gap 11 BUN 75 H Creatinine 6.77 H Estim Creat Clear Calc 7 Estimated GFR 6 L Glucose 82 POC Capillary Glucose Hemoglobin A1c 5.2 Calcium 7.3 L Phosphorus 3.0 Total Bilirubin 1.0 AST 31 ALT 26 Alkaline Phosphatase 71 Total Creatine Kinase 177 H C-Reactive Protein 6.9 H Total Protein 5.5 L Albumin 2.8 L TSH (Reflex) 0.746 Urine Eosinophils Rare Ur Random Sodium 25 Ur Random Urea Urine Creatinine 218.8 Hep Bs Antigen Negative Hep Bs Antibody Negative 03/28/25 03/28/25 09:31 09:31 WBC RBC Hgb Hct MCV MCH MCHC RDW Plt Count MPV Immature Gran % (Auto) Neut % (Auto) Lymph % (Auto) [place] % (Auto) Eos % (Auto) Baso % (Auto) Lymph # (Auto) [place] # (Auto) Eos # (Auto) Baso # (Auto) Abs Immat Gran (auto) Absolute Neuts (auto) Absolute Nucleated RBC Nucleated RBC % Puncture Site ABG pH ABG pCO2 ABG pO2 ABG PO2/FiO2 Ratio ABG HCO3 ABG O2 Saturation ABG O2 Content ABG Base Excess A-a Gradient Oxyhemoglobin Total Hemoglobin O2 Delivery Device O2 Liters/Min FiO2 Sodium Potassium Chloride Carbon Dioxide Anion Gap BUN Creatinine Estim Creat Clear Calc Estimated GFR Glucose POC Capillary Glucose Hemoglobin A1c Calcium Phosphorus Total Bilirubin AST ALT Alkaline Phosphatase Total Creatine Kinase C-Reactive Protein Total Protein Albumin TSH (Reflex) Urine Eosinophils Ur Random Sodium 26 Ur Random Urea 305 309 Urine Creatinine 217.6 Hep Bs Antigen Hep Bs Antibody
[2025-03-28 11:03] LABS: Total Protein Urine Random 115 mg/dL; Ur Ttl Prot Creatinine Ratio 0.53 mg/mg (0-0.20)
--- NOTE | 2025-03-28 11:19 | PM.CNGS ---
Assessment and Plan Assessment and plan (1) Acute kidney injury: Code(s): N17.9 - Acute kidney failure, unspecified Status: Acute Assessment and Plan: Patient has had worsening renal function and significantly elevated BUN and creatinine. Will plan to place a temporary hemodialysis catheter at bedside. This will allow urgent dialysis this weekend. We can be reconsulted further down the road if this is needed to be converted to a tunneled dialysis catheter for more long-term treatment. (2) Stage 3b chronic kidney disease: Code(s): N18.32 - Chronic kidney disease, stage 3b Status: Chronic (3) Essential hypertension: Code(s): I10 - Essential (primary) hypertension Status: Acute (4) Atrial fibrillation: Code(s): I48.91 - Unspecified atrial fibrillation Status: Acute (5) Type 2 diabetes mellitus: Qualifiers: Diabetes mellitus skilled nursing insulin use: without skilled nursing use Diabetes mellitus complication status: with kidney complications Diabetes mellitus complication detail: with chronic kidney disease Chronic kidney disease stage: unspecified stage Qualified Code(s): E11.22 - Type 2 diabetes mellitus with diabetic chronic kidney disease Code(s): E11.9 - Type 2 diabetes mellitus without complications Status: Acute (6) Acute encephalopathy: Code(s): G93.40 - Encephalopathy, unspecified Status: Acute History of Present Illness Consult details Consult date: 03/28/25 Reason for consult: other (Dialysis access) Requesting physician: Holly Jay MD Narrative: This is a 69-year-old woman who I am asked to see for placement of a dialysis catheter. She is aphasic and unable to provide any history. She has worsening acute on chronic renal failure. She presented to the ED 2 days ago with altered mental status and at the time was noted to have significantly elevated BUN and creatinine. Review of Systems Review of Systems: ROS unobtainable: Yes unobtainable due to medical condition and unobtainable due to mental status Eyes: Eyes: Denies change in vision ENT: Denies hearing loss, Denies neck pain and Denies sore throat Cardiovascular: Cardiovascular: Denies chest pain and Denies dyspnea Respiratory: Respiratory: Denies cough, Denies dyspnea and Denies wheezing Genitourinary: Genitourinary: Denies hematuria and Denies dysuria Musculoskeletal: Musculoskeletal: Denies arthralgias, Denies joint swelling and Denies neck pain Allergic/Immunologic: Allergic/Immunologic: Denies wheezing PMFSH Past Medical History Medical History Anxiety and depression Dementia Type 2 diabetes mellitus Essential hypertension CHF (congestive heart failure) CVA (cerebral vascular accident) Surgical History Surgical History Surgical history unknown Social History Social History Smoking status: Unknown if ever smoked Spiritual care concerns: No Meds Home Medications and Allergies Home Medications ?Medication ?Instructions ?Recorded ?Confirmed ?Type acetaminophen 325 mg capsule 650 mg PO Q4H PRN pain 03/27/25 03/27/25 History albuterol 90 mcg-budesonide 80 2 inh inhalation Q6H PRN shortness 03/27/25 03/27/25 History mcg/actuation HFA aerosol inhaler of breath (Airsupra) ammonium lactate 12 % lotion 1 applic topical DAILY 03/27/25 03/27/25 History (AmLactin) ascorbic acid (vitamin C) 500 mg 500 mg PO DAILY 03/27/25 03/27/25 History capsule aspirin 81 mg tablet 81 mg PO DAILY 03/27/25 03/27/25 History atorvastatin 40 mg tablet 40 mg PO HS 03/27/25 03/27/25 History bisacodyl 10 mg rectal suppository 10 mg RECTAL DAILY PRN constipation 03/27/25 03/27/25 History calamine 1 ea topical Q8H PRN itching 03/27/25 03/27/25 History carvedilol 6.25 mg tablet 6.25 mg PO BID 03/27/25 03/27/25 History cholecalciferol (vitamin D3) 25 1,000 unit PO DAILY 03/27/25 03/27/25 History mcg (1,000 unit) capsule cranberry extract 250 mg tablet 250 mg PO DAILY 03/27/25 03/27/25 History diclofenac sodium 1 % topical gel 2 g topical Q4H PRN pain 03/27/25 03/27/25 History diphenhydramine HCl 25 mg capsule 25 mg PO Q6H PRN itching 03/27/25 03/27/25 History (Aler-Cap) duloxetine 60 mg capsule,delayed 60 mg PO DAILY 03/27/25 03/27/25 History release famotidine 20 mg tablet 20 mg PO DAILY 03/27/25 03/27/25 History ferrous sulfate 325 mg (65 mg 325 mg PO DAILY 03/27/25 03/27/25 History iron) tablet (FeroSul) furosemide 40 mg tablet 40 mg PO DAILY 03/27/25 03/27/25 History hydrocortisone 1 % topical cream 1 applic topical Q12H PRN 03/27/25 03/27/25 History (Ala-Rubens) hemorrhoids magnesium citrate 296 ml PO DAILY PRN constipation 03/27/25 03/27/25 History magnesium hydroxide 400 mg/5 mL 30 ml PO HS PRN constipation 03/27/25 03/27/25 History oral suspension (Milk of Magnesia) methyl salicylate 10 % topical 1 applic topical Q4H PRN muscle 03/27/25 03/27/25 History cream pain metronidazole 1 % topical cream 1 applic topical Q12H 03/27/25 03/27/25 History (Noritate) miconazole nitrate 2 % topical 1 spray topical Q12H 03/27/25 03/27/25 History spray powder (Athlete's Foot) mirtazapine 7.5 mg tablet 7.5 mg PO HS 03/27/25 03/27/25 History multivitamin (Daily Multi-Vitamin 1 tablet PO DAILY 03/27/25 03/27/25 History tablet) nystatin 100,000 unit/gram topical 1 applic topical BID 03/27/25 03/27/25 History powder ondansetron HCl 4 mg tablet 4 mg PO Q6H PRN nausea and vomiting 03/27/25 03/27/25 History ophthalmic irrigation solution 2 drp ophthalmic (eye) Q12H PRN 03/27/25 03/27/25 History drops dry eye(s) polyethylene glycol 3350 17 17 g PO DAILY PRN constipation 03/27/25 03/27/25 History gram/dose oral powder (ClearLax) povidone-iodine 10 % topical 1 applic topical DAILY 03/27/25 03/27/25 History solution (Betadine) sitagliptin 25 mg tablet 25 mg PO DAILY 03/27/25 03/27/25 History sodium phosphates 19 gram-7 118 ml RECTAL DAILY PRN 03/27/25 03/27/25 History gram/118 mL enema (Enema) constipation triamcinolone acetonide 0.1 % 1 applic topical BID 03/27/25 03/27/25 History topical cream zinc 50 mg capsule 50 mg PO DAILY 03/27/25 03/27/25 History zinc oxide 10 % topical spray 1 applic topical BID 03/27/25 03/27/25 History (Beba Bottoms Diaper Rash) Allergies Allergy/AdvReac Type Severity Reaction Status Date / Time No Known Allergies Allergy Verified 03/27/25 01:53 Vital Signs Vital Signs - 24 hr 03/27/25 14:00 03/27/25 14:55 03/27/25 14:59 Temperature 98.4 F Pulse Rate 130 H 121 H 121 H Respiratory Rate 14 Blood Pressure 102/82 118/80 Pulse Oximetry 91 Oxygen Delivery 03/27/25 16:00 03/27/25 17:00 03/27/25 17:36 Temperature 97.9 F Pulse Rate 101 H 96 Respiratory Rate 16 Blood Pressure 104/34 L Pulse Oximetry 94 96 Oxygen Delivery Room Air 03/27/25 20:00 03/27/25 20:00 03/27/25 20:47 Temperature 98.8 F Pulse Rate 104 H 107 H Respiratory Rate 16 Blood Pressure 121/45 L Pulse Oximetry 93 95 Oxygen Delivery Room Air 03/27/25 21:58 03/27/25 22:25 03/28/25 00:00 Temperature Pulse Rate 107 H Respiratory Rate Blood Pressure Pulse Oximetry 95 93 Oxygen Delivery Room Air Room Air 03/28/25 00:00 03/28/25 00:40 03/28/25 02:00 Temperature 99.9 F H Pulse Rate 88 105 H 100 Respiratory Rate 16 Blood Pressure 103/45 L Pulse Oximetry 92 Oxygen Delivery 03/28/25 03:11 03/28/25 04:00 03/28/25 04:00 Temperature Pulse Rate 97 94 Respiratory Rate Blood Pressure Pulse Oximetry 93 Oxygen Delivery Room Air 03/28/25 06:00 03/28/25 08:26 03/28/25 09:27 Temperature 99.3 F 98.0 F Pulse Rate 102 H 91 89 Respiratory Rate 16 24 H Blood Pressure 121/42 L 104/31 L Pulse Oximetry 100 100 Oxygen Delivery Exam Const: General: alert; No acute distress Orientation/consciousness: patient oriented x3 Limitations: no limitations HENMT: Head: normocephalic and atraumatic Ears: hearing grossly normal bilaterally Face/Nose/Sinus: Normal external nose present and Normal nares present Mouth: Yes Normal oral and palatal mucosa present and Yes moist mucous membranes Eyes: General: appearance normal, both eyes and all related structures Conjunctivae: conjunctivae normal Sclera: sclerae normal Pupils: Equal, round and reactive pupils present EOM: EOMs intact bilaterally Neck: Neck: normal visual inspection, full ROM, no lymphadenopathy, supple and no JVD Lymphatic: no lymphadenopathy noted Chest: Chest palpation & inspection: normal inspection of the chest Resp: Effort & Inspection: normal respiratory effort and able to speak in complete sentences Auscultation: clear to auscultation bilaterally Percussion: percussion normal Cardio: Jugular venous distension: no JVD Rate: regular rate Rhythm: regular rhythm Heart sounds: S1 normal heart sound present and S2 normal heart sound present Peripheral pulses: Peripheral pulses 2+ throughout GI: Inspection: normal to inspection GI Palp: Yes Soft to palpation and No Tenderness to palpation present (GI) Auscultation: normal bowel sounds : General: Yes no CVA tenderness Back/Spine/Pelvis: Back: no CVA tenderness Skin: General skin exam: normal color and dry skin Neuro: General: patient oriented x3, gait normal, moves all extremities, no focal motor deficits and CN's II-XI intact bilaterally Cranial nerves: Yes Equal, round and reactive pupils present Speech: normal speech Extrem: General: normal to inspection and capillary refill normal Results Labs 03/28/25 04:56 03/28/25 04:56 Labs: Abnormal lab results 03/27/25 03/27/25 03/27/25 Range/Units 08:22 17:23 17:46 WBC (4.5-10.0) K/mm3 RBC (4.2-5.4) M/mm3 Hgb (12.0-15.0) g/dL Hct (37.0-47.0) % MCHC (32-36) g/dl RDW (11.5-14.5) % Immature Gran % (Auto) (0-0.5) % Neut % (Auto) (45.5-73.1) % Lymph % (Auto) (18.3-44.2) % [place] # (Auto) (0.1-0.6) K/mm3 Abs Immat Gran (auto) (0.00-0.031) K/mm3 Absolute Neuts (auto) (1.3-6.7) K/mm3 Absolute Nucleated RBC (0.0-0.012) K/mm3 Nucleated RBC % (0.0-0.2) % ABG pCO2 25.9 L (35.0-45.0) mmHg ABG HCO3 14.1 L (22.0-26.0) mEq/l ABG O2 Content 12.6 L (16.0-22.0) %vol Total Hemoglobin 9.3 L (12.0-18.0) g/dL Potassium (3.4-5.0) mmol/L Chloride (98-107) mmol/L Carbon Dioxide (22-30) mmol/L BUN (7-17) mg/dL Creatinine (0.7-1.0) mg/dL Estimated GFR (59 - ) Glucose (65-110) mg/dL POC Capillary Glucose 58 L* (65-105) mg/dl Calcium (8.4-10.2) mg/dL Total Creatine Kinase (30-135) U/L C-Reactive Protein 6.0 H (<1.0) mg/dL Total Protein (6.3-8.2) g/dL Albumin (3.5-5.1) g/dL Protein/Creat Ratio 2 (0-0.20) mg/mg 03/27/25 03/28/25 03/28/25 Range/Units 18:04 04:56 09:30 WBC 11.7 H (4.5-10.0) K/mm3 RBC 2.75 L (4.2-5.4) M/mm3 Hgb 7.2 L (12.0-15.0) g/dL Hct 22.6 L (37.0-47.0) % MCHC 31.9 L (32-36) g/dl RDW 17.4 H (11.5-14.5) % Immature Gran % (Auto) 2.2 H (0-0.5) % Neut % (Auto) 75.6 H (45.5-73.1) % Lymph % (Auto) 13.5 L (18.3-44.2) % [place] # (Auto) 1.0 H (0.1-0.6) K/mm3 Abs Immat Gran (auto) 0.26 H (0.00-0.031) K/mm3 Absolute Neuts (auto) 8.8 H (1.3-6.7) K/mm3 Absolute Nucleated RBC 0.090 H (0.0-0.012) K/mm3 Nucleated RBC % 0.8 H (0.0-0.2) % ABG pCO2 (35.0-45.0) mmHg ABG HCO3 (22.0-26.0) mEq/l ABG O2 Content (16.0-22.0) %vol Total Hemoglobin (12.0-18.0) g/dL Potassium 3.1 L (3.4-5.0) mmol/L Chloride 116 H 114 H (98-107) mmol/L Carbon Dioxide 16 L 19 L (22-30) mmol/L BUN 77 H 75 H (7-17) mg/dL Creatinine 6.95 H 6.77 H (0.7-1.0) mg/dL Estimated GFR 6 L 6 L (59 - ) Glucose 116 H (65-110) mg/dL POC Capillary Glucose (65-105) mg/dl Calcium 7.1 L 7.3 L (8.4-10.2) mg/dL Total Creatine Kinase 177 H (30-135) U/L C-Reactive Protein 6.9 H (<1.0) mg/dL Total Protein 5.5 L (6.3-8.2) g/dL Albumin 2.8 L (3.5-5.1) g/dL Protein/Creat Ratio 2 0.53 H (0-0.20) mg/mg Diabetes panel 03/27/25 03/28/25 Range/Units 18:04 04:56 Sodium 142 144 (137-145) mmol/L Potassium 3.6 3.1 L (3.4-5.0) mmol/L Chloride 116 H 114 H (98-107) mmol/L Carbon Dioxide 16 L 19 L (22-30) mmol/L BUN 77 H 75 H (7-17) mg/dL Creatinine 6.95 H 6.77 H (0.7-1.0) mg/dL Glucose 116 H 82 (65-110) mg/dL Hemoglobin A1c 5.2 (<5.7) % Calcium 7.1 L 7.3 L (8.4-10.2) mg/dL AST 31 (14-36) U/L ALT 26 (6-35) U/L Alkaline Phosphatase 71 (38-126) U/L Total Protein 5.5 L (6.3-8.2) g/dL Albumin 2.8 L (3.5-5.1) g/dL Calcium panel 03/27/25 03/28/25 Range/Units 18:04 04:56 Calcium 7.1 L 7.3 L (8.4-10.2) mg/dL Phosphorus 3.0 (2.5-4.5) mg/dL Albumin 2.8 L (3.5-5.1) g/dL Pituitary panel 03/27/25 03/28/25 Range/Units 18:04 04:56 Sodium 142 144 (137-145) mmol/L Potassium 3.6 3.1 L (3.4-5.0) mmol/L Chloride 116 H 114 H (98-107) mmol/L Carbon Dioxide 16 L 19 L (22-30) mmol/L BUN 77 H 75 H (7-17) mg/dL Creatinine 6.95 H 6.77 H (0.7-1.0) mg/dL Glucose 116 H 82 (65-110) mg/dL Calcium 7.1 L 7.3 L (8.4-10.2) mg/dL Adrenal panel 03/27/25 03/28/25 Range/Units 18:04 04:56 Sodium 142 144 (137-145) mmol/L Potassium 3.6 3.1 L (3.4-5.0) mmol/L Chloride 116 H 114 H (98-107) mmol/L Carbon Dioxide 16 L 19 L (22-30) mmol/L BUN 77 H 75 H (7-17) mg/dL Creatinine 6.95 H 6.77 H (0.7-1.0) mg/dL Glucose 116 H 82 (65-110) mg/dL Calcium 7.1 L 7.3 L (8.4-10.2) mg/dL Total Bilirubin 1.0 (0.2-1.3) mg/dL AST 31 (14-36) U/L ALT 26 (6-35) U/L Alkaline Phosphatase 71 (38-126) U/L Total Protein 5.5 L (6.3-8.2) g/dL Albumin 2.8 L (3.5-5.1) g/dL All other labs normal. Imaging Additional studies: ITS Impressions Head CT 03/26/25 19:31 IMPRESSION: 1. No acute intracranial findings. 2. Extensive, bilaterally symmetric chronic small vessel ischemic changes. Chest X-Ray 03/26/25 19:36 IMPRESSION: 1. No acute pulmonary findings. Significant atherosclerotic aorta. 2. Severe arthritis of both shoulders. Renal Ultrasound 03/27/25 14:05 IMPRESSION: Very limited examination with no gross hydronephrosis or large renal masses. If more discrete evaluation of the kidneys is required, consider CT or MRI. The urinary bladder is nondistended with catheter placed. Cholelithiasis incidentally noted in the partially visualized gallbladder. Chest X-Ray 03/27/25 17:46 Impression: Mild CHF
--- NOTE | 2025-03-28 11:23 | W.PM.PROC2 ---
Procedure Note - Detailed Date of Procedure 03/28/25 Pre-op Diagnosis UTI, acute kidney injury, altered mental status Post-op Diagnosis Same Procedure Performed Right IJ Waldo dialysis catheter placement using ultrasound guidance Surgeon James Torres DO Anesthesia Local (1% Lidocaine) Indications Acute on chronic renal failure Findings SonoSite ultrasound was used to identify the right internal jugular vein. This was visualized as a compressible vessel just lateral to the pulsatile carotid artery. The internal jugular vein was accessed under ultrasound guidance using an 18 gauge introducer needle. The guidewire advanced smoothly followed by the dilators and dialysis catheter. Chest x-ray is pending to confirm placement. Description of Procedure Procedure, risks, benefits, and alternatives were discussed with the patient's family. Written consent was obtained and placed in chart prior to procedure. Patient was placed supine in hospital bed and placed in slight Trendelenburg position. Time-out was done to confirm patient and procedure. The right neck and chest area was prepped and draped in sterile fashion using chlorhexidine prep. SonoSite ultrasound was used to identify the right internal jugular vein. 1% lidocaine was infiltrated directly over this area. An 18 gauge introducer needle was advanced under ultrasound guidance directly into the right internal jugular vein. Dark nonpulsatile blood was aspirated. A 0.035 in guidewire was then advanced through the needle. The guidewire advanced smoothly. The needle was then withdrawn leaving the guidewire in place. A small christiano incision was made at the insertion site using an 11 blade scalpel. The blue dilators were then advanced over the guidewire to dilate the vessel. The 12 [place] triple lumen 16 cm dialysis catheter was then advanced over the guidewire until it was in place. The guidewire was removed. All 3 lumens were then aspirated and flushed with sterile saline. All 3 lumens function with ease. Caps were placed over the lumens. Glue was placed at the insertion site and the catheter was secured in place using 3 0 nylon simple interrupted sutures. A Tegaderm dressing was then applied over top. The patient was then sat up in bed and chest x-ray was ordered to confirm placement. Implants 12 [place] triple-lumen 16 cm dialysis catheter Estimated Blood Loss 5 Complications No immediate complications Condition Stable Disposition No change [facility] Billing Surgery - Charge Forward: Surgery Billing
--- NOTE | 2025-03-28 13:40 | P.PNNP_ITS ---
Subjective Date/time seen: 03/28/25 13:40 Interval history: Follow-up for acute kidney injury/acute renal failure on chronic kidney disease. Status post temporary HD catheter placement earlier this morning and tolerating dialysis treatment at the time of my visit; no real significant change in mental status -- remains lethargic/somnolent when seen; no real significant improvement in urine output in the last 24 hours (remains oliguric). Exam 2 Narrative: General: ill appearing female in NAD; lethargic/somnolent Heart: tachycardic; normal S1 and S2; no rub Lungs: decreased at the bases Abdomen: soft, nontender, nondistended, positive bowel sounds Extremities: no cyanosis or clubbing; no edema Skin: warm and dry Objective Data Vital Signs Vital Signs: Vital Signs Temp Pulse Resp BP Pulse Ox O2 Del Method O2 Flow Rate 03/28/25 13:30 104 H 141/58 H 03/28/25 13:10 100 138/52 L 03/28/25 13:00 98.1 F 100 19 118/47 L 93 03/28/25 13:00 106 H 101/59 L 03/28/25 13:00 0 03/28/25 12:27 98.1 F 97 12 92/36 L 97 03/28/25 12:00 89 03/28/25 12:00 93 Room Air 03/28/25 09:27 89 03/28/25 08:26 98.0 F 91 24 H 104/31 L 100 03/28/25 08:00 89 03/28/25 08:00 93 Room Air 03/28/25 06:00 99.3 F 102 H 16 121/42 L 100 03/28/25 04:00 94 03/28/25 04:00 93 Room Air 03/28/25 03:11 97 03/28/25 02:00 100 03/28/25 00:40 99.9 F H 105 H 16 103/45 L 92 03/28/25 00:00 88 03/28/25 00:00 93 Room Air 03/27/25 22:25 107 H 03/27/25 21:58 95 Room Air 03/27/25 20:47 98.8 F 107 H 16 121/45 L 95 03/27/25 20:00 93 Room Air 03/27/25 20:00 104 H 03/27/25 17:36 97.9 F 96 16 104/34 L 96 Intake/Output Intake/Output: Intake & Output 03/25/25 03/26/25 03/27/25 03/28/25 23:59 23:59 23:59 23:59 Intake Total 3050 1200 200 Output Total 150 100 100 Balance 2900 1100 100 Meds/Results Medications: Active Medications Generic Name Dose Route Start Last Admin Trade Name Freq PRN Reason Stop Dose Admin Acetaminophen 650 mg 03/26/25 21:38 Acetaminophen 325 Mg Tablet PO Q4H PRN Mild Pain (1-3) or Fever Artificial Tears 2 drop 03/27/25 06:42 Artificial Tears Ophth Soln 15 Ml Bottle EACH EYE Q12H PRN dry eye(s) Aspirin 81 mg 03/27/25 09:00 03/28/25 09:21 Aspirin 81 Mg Enteric Tablet PO 04/26/25 08:59 Not Given DAILY TELLO Bisacodyl 10 mg 03/27/25 06:42 Bisacodyl 10 Mg Suppository RECTAL DAILY PRN Constipation Dextrose 12.5 gm 03/27/25 11:02 03/27/25 16:51 Dextrose 50% 25 Gm/50 Ml Syringe IV PUSH 12.5 gm PRN PRN Administration Hypoglycemia Protocol Diclofenac Sodium 1 applic 03/27/25 06:42 Diclofenac Sodium 1% 100 Gm Gel (*Bkc) TOPICAL Q4H PRN Joint pain Epoetin Julio Cesar-epbx 10,000 units 03/28/25 18:00 03/28/25 15:43 Epoetin Julio Cesar-Epbx 10,000 Units/Ml Vial IV PUSH 03/28/25 18:01 10,000 units ONCE ONE Administration Glucagon 1 mg 03/27/25 11:02 Glucagon For Inj 1 Mg Vial IM PRN PRN Hypoglycemia Protocol Glucose 15 gm 03/27/25 11:02 Glucose Oral Gel 15 Gm Of Glucse In 37.5 Gm Tube PO PRN PRN Hypoglycemia Protocol Heparin Sodium (Porcine) 5,000 units 03/27/25 09:00 03/28/25 09:21 Heparin Sodium 5,000 Units/Ml Vial SUB-Q 5,000 units On Hold: 03/28/25 10:54 Q12HR TELLO Administration Hydrocortisone 1 applic 03/27/25 06:42 Hydrocortisone 1% 30 Gm Cream TOPICAL Q12H PRN Hemorrhoids Dextrose 1,000 mls @ 100 mls/hr 03/27/25 11:02 Dextrose 5% 1,000 Ml IVPB PRN PRN Hypoglycemia Protocol Meropenem 500 mg/ Sodium 100 mls @ 200 mls/hr 03/27/25 14:00 03/27/25 15:29 Chloride IVPB Infused DAILY@1400 TELLO Infusion Albumin Human 50 mls @ 999 mls/hr 03/28/25 11:59 Albutein IVPB 04/27/25 11:58 Q10M PRN HYPOTENSION Insulin Aspart 2 - 5 units 03/27/25 12:00 03/28/25 09:15 Insulin Aspart (*Bkc) 100 Units/Ml SUB-Q Not Given TIDWM TELLO Protocol Lactic Acid 1 applic 03/27/25 09:00 03/28/25 09:21 Lactic Acid 12% Lotion 225 Btl TOPICAL 04/26/25 08:59 1 applic DAILY TELLO Administration Metoprolol Tartrate 2.5 mg 03/27/25 21:00 03/28/25 09:27 Metoprolol Tartrate Inj 5 Mg/5 Ml Vial IV PUSH 2.5 mg Q6H TELLO Administration Ondansetron HCl 4 mg 03/26/25 21:38 Ondansetron Inj 4 Mg/2 Ml Vial IV PUSH Q4H PRN Nausea Pantoprazole Sodium 40 mg 03/28/25 09:00 03/28/25 09:18 Pantoprazole Sodium Iv 40 Mg Vial IV PUSH 40 mg QAM TELLO Administration Radiology Results: ITS Impressions Head CT 03/26/25 19:31 IMPRESSION: 1. No acute intracranial findings. 2. Extensive, bilaterally symmetric chronic small vessel ischemic changes. Renal Ultrasound 03/27/25 14:05 IMPRESSION: Very limited examination with no gross hydronephrosis or large renal masses. If more discrete evaluation of the kidneys is required, consider CT or MRI. The urinary bladder is nondistended with catheter placed. Cholelithiasis incidentally noted in the partially visualized gallbladder. Chest X-Ray 03/28/25 11:27 IMPRESSION: 1. No pneumothorax or other acute cardiopulmonary findings given portable technique. Labs Labs: Laboratory Tests 03/28/25 04:56 03/28/25 04:56 Hemoglobin A1c 5.2 Calcium 7.3 L Phosphorus 3.0 Total Bilirubin 1.0 AST 31 ALT 26 Alkaline Phosphatase 71 Total Creatine Kinase 177 H C-Reactive Protein 6.9 H Total Protein 5.5 L Albumin 2.8 L TSH (Reflex) 0.746 Microbiology 03/26/25 19:22 Blood Blood Culture - Preliminary 03/26/25 19:15 Blood Blood Culture - Preliminary 03/26/25 20:20 Urine Catheterized - Preliminary Gram negative bacilli isolated
[2025-03-28] MEDS: EPOETIN ALFA-EPBX 10,000 UNITS/ML VIAL 10000 UNITS IV PUSH (15:43)
[2025-03-28] MEDS: DEXTROSE 50% 25 GM/50 ML SYRINGE IV PUSH (17:29)
[2025-03-28] MEDS: MEROPENEM 500 MG in SODIUM CHLORIDE 0.9% IV 100 ML 200 ML IVPB (17:36)
[2025-03-28] MEDS: DEXTROSE 5% 1,000 ML 1,000 ML 30 ML IV CONT (19:05)
[2025-03-29] VITALS (16 sets, daily range): BP systolic 109–123; BP diastolic 32–50; PULSE 78–113; RESP 16–22; TEMP 36.6–37.6; O2SAT 95–100
[2025-03-29] MEDS: DEXTROSE 50% 25 GM/50 ML SYRINGE IV PUSH ×2 (00:07→06:48)
[2025-03-29] MEDS: METOPROLOL TARTRATE INJ 5 MG/5 ML VIAL 2.5 MG IV PUSH ×4 (03:15→21:06)
[2025-03-29 04:45] LABS: Hematocrit 21.2 % (37.0-47.0); Hemoglobin 7.0 g/dL (12.0-15.0); Immature Granulocyte Percent A 3.6 % (0-0.5); Lymphocytes Absolute Auto 2.56 K/mm3 (0.9-3.2); Mean Corpuscular HGB Conc 33.0 g/dl (32-36); Mean Corpuscular Hemoglobin 26.8 pg (26-34); Mean Corpuscular Volume 81.2 fl (80-100); Nucleated Red Blood Cells Absolute Auto 0.160 K/mm3 (0.0-0.012); Nucleated Red Blood Cells Perc 1.3 % (0.0-0.2); Platelet Count Result 160 k/mm3 (150-375); Red Blood Count 2.61 M/mm3 (4.2-5.4); White Blood Count 12.4 K/mm3 (4.5-10.0)
[2025-03-29 05:18] LABS: Iron 62 ug/dL (37-170)
[2025-03-29 05:27] LABS: Percent Iron Saturation 100 % (20-50)
[2025-03-29 05:49] LABS: Alanine Aminotransferase 35 U/L (6-35); Albumin Level 2.9 g/dL (3.5-5.1); Alkaline Phosphatase 64 U/L (38-126); Anion Gap 12 mmol/L (4-12); Aspartate Amino Transferase 62 U/L (14-36); Bilirubin,Total 1.3 mg/dL (0.2-1.3); Blood Urea Nitrogen 23 mg/dL (7-17); CRP 7.4 mg/dL (<1.0); Calcium 7.6 mg/dL (8.4-10.2); Carbon Dioxide 21 mmol/L (22-30); Chloride 102 mmol/L (98-107); Estimated CRCL calculation 17 ml/min; Estimated Glomerular Filt Rate 17; Glucose 67 mg/dL (65-110); Potassium 2.9 mmol/L (3.4-5.0); Sodium 135 mmol/L (137-145); Total Protein 5.5 g/dL (6.3-8.2)
[2025-03-29 06:29] LABS: Vitamin B12 > 1000.0 pg/mL (239-931)
[2025-03-29] MEDS: PANTOPRAZOLE SODIUM IV 40 MG VIAL IV PUSH (08:59)
[2025-03-29] MEDS: LACTIC ACID 12% LOTION 225 BTL 1 APPLIC TOPICAL (09:00)
--- NOTE | 2025-03-29 11:00 | P.PNCA_ITS ---
Progress Note: A&P Assessment and Plan (1) Atrial fibrillation: Code(s): I48.91 - Unspecified atrial fibrillation Status: Acute (2) Acute kidney injury: Code(s): N17.9 - Acute kidney failure, unspecified Status: Acute (3) Essential hypertension: Code(s): I10 - Essential (primary) hypertension Status: Acute (4) Dementia: Qualifiers: Dementia type: unspecified type Dementia severity: severe Dementia behavioral or psychological symptom: with other behavioral disturbance Qualified Code(s): F03.C18 - Unspecified dementia, severe, with other behavioral disturbance Code(s): F03.90 - Unspecified dementia, unspecified severity, without behavioral disturbance, psychotic disturbance, mood disturbance, and anxiety Status: Chronic Plan -atrial fibrillation, new diagnosis -advanced dimension -history of hypertension -severe anemia -acute renal failure -in regards to AFib, new diagnosis. Rate controlled. Continue metoprolol 2.5 mg IV q.6 hours and transition to p.o. metoprolol when able to tolerate. At that that is this patient is a candidate for anticoagulation given advanced severe dementia and severe anemia. -gas to hypokalemia, potassium today 2.7, replenish. -in regards to acute renal failure, status post hemodialysis catheter placement. Was started on dialysis successfully yesterday March 28 -regards hypertension, continue metoprolol -gas to severe anemia, hemoglobin dropped from 9-7.2, today hemoglobin is 7 Subjective Date/time seen: Date of service 03/29/25 11:00 Interval history: 69-year-old female with a past medical history of dementia, CVA, essential hypertension, CHF and diabetes who presented to the ER from [facility] due to elevated creatinine on outpatient labs. The patient is unable to provide any history and will only open her eyes to verbal stimuli. She will not follow commands or communicate. Evidently the labs were performed due to patient being more altered than baseline. Family reported that the patient had been progressively less responsive over the course of the week. The patient was sent into the ER for evaluation. She is in AFib with controlled heart rate. Sometimes sinus rhythm frequent PACs. Patient is laying some non and in bed in flat position. She appears to be cachectic. On room air. Nonverbal. Her eyes closedHemoglobin on admission 9.1 and today 7.2. Creatinine on admission 6.95. Potassium today 3.1. White cell count 12.8 K Chest x-ray reviewed and as myself on admission unremarkable. EKG initially sinus tachycardia repeat EKG atrial fibrillation. Date of service 03/29: Receives hemodialysis catheter yesterday and started on dialysis. Her AFib has higher heart rate today low 100s. She is on IV metoprolol today. I am not sure if she was not able to swallow yesterday Review of Systems Review of Systems: ROS unobtainable: Yes unobtainable due to mental status (Underlying dementia. Patient is nonverbal) Exam Const: Other: Not in distress HENMT: Other: No epistaxis Eyes: Other: Eyes closed Neck: Other: Supple Chest: Other: Symmetric lung expansion Resp: Other: Symmetric lung expansion Cardio: Other: No myeloma GI: Other: No distension Skin: Other: No rash Neuro: Other: Eyes closed. Nonverbal. Underlying dementia Extrem: Other: No edema Psych: Other: Advanced dementia Objective Data Vital Signs Vital Signs: Vital Signs - 24 hr 03/28/25 12:00 03/28/25 12:00 03/28/25 12:27 Temperature 36.7 C Pulse Rate 89 97 Respiratory Rate 12 Blood Pressure 92/36 L Pulse Oximetry 93 97 Oxygen Delivery Room Air Oxygen Flow Rate Fraction of Inspired Oxygen 03/28/25 13:00 03/28/25 13:00 03/28/25 13:00 Temperature 36.7 C Pulse Rate 106 H 100 Respiratory Rate 19 Blood Pressure 101/59 L 118/47 L Pulse Oximetry 93 Oxygen Delivery Oxygen Flow Rate 0 Fraction of Inspired Oxygen 0 03/28/25 13:10 03/28/25 13:30 03/28/25 14:15 Temperature Pulse Rate 100 104 H 109 H Respiratory Rate Blood Pressure 138/52 L 141/58 H 124/61 Pulse Oximetry Oxygen Delivery Oxygen Flow Rate Fraction of Inspired Oxygen 03/28/25 14:30 03/28/25 14:45 03/28/25 15:00 Temperature Pulse Rate 108 H 106 H 113 H Respiratory Rate Blood Pressure 125/62 102/54 L 118/66 Pulse Oximetry Oxygen Delivery Oxygen Flow Rate Fraction of Inspired Oxygen 03/28/25 15:30 03/28/25 15:45 03/28/25 16:00 Temperature Pulse Rate 109 H 108 H 69 Respiratory Rate Blood Pressure 108/59 L 100/66 93/42 L Pulse Oximetry Oxygen Delivery Oxygen Flow Rate Fraction of Inspired Oxygen 03/28/25 16:00 03/28/25 16:15 03/28/25 16:26 Temperature Pulse Rate 89 110 H 111 H Respiratory Rate Blood Pressure 117/62 128/59 L Pulse Oximetry Oxygen Delivery Oxygen Flow Rate Fraction of Inspired Oxygen 03/28/25 17:01 03/28/25 17:23 03/28/25 17:32 Temperature 36.3 C L 36.7 C Pulse Rate 109 H 107 H 93 Respiratory Rate 16 12 Blood Pressure 119/59 L 108/51 L Pulse Oximetry 94 96 Oxygen Delivery Oxygen Flow Rate Fraction of Inspired Oxygen 03/28/25 20:00 03/28/25 20:00 03/28/25 21:15 Temperature Pulse Rate 102 H 103 H Respiratory Rate Blood Pressure Pulse Oximetry 100 Oxygen Delivery Room Air Oxygen Flow Rate Fraction of Inspired Oxygen 03/28/25 22:00 03/29/25 00:00 03/29/25 00:00 Temperature 36.7 C Pulse Rate 100 101 H Respiratory Rate 16 Blood Pressure 123/50 L Pulse Oximetry 100 96 Oxygen Delivery Room Air Oxygen Flow Rate Fraction of Inspired Oxygen 03/29/25 00:00 03/29/25 02:00 03/29/25 03:15 Temperature Pulse Rate 96 78 113 H Respiratory Rate Blood Pressure Pulse Oximetry Oxygen Delivery Oxygen Flow Rate Fraction of Inspired Oxygen 03/29/25 04:00 03/29/25 04:00 03/29/25 04:00 Temperature 36.6 C Pulse Rate 86 93 Respiratory Rate 22 H Blood Pressure 118/44 L Pulse Oximetry 100 99 Oxygen Delivery Room Air Oxygen Flow Rate Fraction of Inspired Oxygen 03/29/25 06:00 03/29/25 08:00 03/29/25 08:59 Temperature 36.7 C Pulse Rate 100 85 83 Respiratory Rate 20 Blood Pressure 117/32 L Pulse Oximetry 100 Oxygen Delivery Oxygen Flow Rate Fraction of Inspired Oxygen Intake/Output Intake/Output: Intake & Output 03/26/25 03/27/25 03/28/25 03/29/25 23:59 23:59 23:59 23:59 Intake Total 3050 1200 200 100 Output Total 150 100 115 15 Balance 2900 1100 85 85 Meds/Results Medications: Active Medications Generic Name Dose Route Start Last Admin Trade Name Freq PRN Reason Stop Dose Admin Acetaminophen 650 mg 03/26/25 21:38 Acetaminophen 325 Mg Tablet PO Q4H PRN Mild Pain (1-3) or Fever Artificial Tears 2 drop 03/27/25 06:42 Artificial Tears Ophth Soln 15 Ml Bottle EACH EYE Q12H PRN dry eye(s) Aspirin 81 mg 03/27/25 09:00 03/29/25 09:15 Aspirin 81 Mg Enteric Tablet PO 04/26/25 08:59 Not Given DAILY TELLO Bisacodyl 10 mg 03/27/25 06:42 Bisacodyl 10 Mg Suppository RECTAL DAILY PRN Constipation Dextrose 12.5 gm 03/27/25 11:02 03/29/25 06:48 Dextrose 50% 25 Gm/50 Ml Syringe IV PUSH 12.5 gm PRN PRN Administration Hypoglycemia Protocol Diclofenac Sodium 1 applic 03/27/25 06:42 Diclofenac Sodium 1% 100 Gm Gel (*Bkc) TOPICAL Q4H PRN Joint pain Glucagon 1 mg 03/27/25 11:02 Glucagon For Inj 1 Mg Vial IM PRN PRN Hypoglycemia Protocol Glucose 15 gm 03/27/25 11:02 Glucose Oral Gel 15 Gm Of Glucse In 37.5 Gm Tube PO PRN PRN Hypoglycemia Protocol Heparin Sodium (Porcine) 5,000 units 03/27/25 09:00 03/28/25 09:21 Heparin Sodium 5,000 Units/Ml Vial SUB-Q 5,000 units On Hold: 03/28/25 10:54 Q12HR TELLO Administration Hydrocortisone 1 applic 03/27/25 06:42 Hydrocortisone 1% 30 Gm Cream TOPICAL Q12H PRN Hemorrhoids Dextrose 1,000 mls @ 100 mls/hr 03/27/25 11:02 Dextrose 5% 1,000 Ml IVPB PRN PRN Hypoglycemia Protocol Meropenem 500 mg/ Sodium 100 mls @ 200 mls/hr 03/27/25 14:00 03/29/25 09:01 Chloride IVPB Infused DAILY@1400 TELLO Infusion Albumin Human 50 mls @ 999 mls/hr 03/28/25 11:59 Albutein IVPB 04/27/25 11:58 Q10M PRN HYPOTENSION Dextrose 1,000 mls @ 30 mls/hr 03/28/25 18:55 03/28/25 19:05 Dextrose 5% 1,000 Ml IV CONT 30 mls/hr .Q24H TELLO Administration Insulin Aspart 2 - 5 units 03/27/25 12:00 03/29/25 08:45 Insulin Aspart (*Bkc) 100 Units/Ml SUB-Q Not Given TIDWM [facility] Protocol Lactic Acid 1 applic 03/27/25 09:00 03/29/25 09:00 Lactic Acid 12% Lotion 225 Btl TOPICAL 04/26/25 08:59 1 applic DAILY TELLO Administration Metoprolol Tartrate 2.5 mg 03/27/25 21:00 03/29/25 08:59 Metoprolol Tartrate Inj 5 Mg/5 Ml Vial IV PUSH 2.5 mg Q6H TELLO Administration Ondansetron HCl 4 mg 03/26/25 21:38 Ondansetron Inj 4 Mg/2 Ml Vial IV PUSH Q4H PRN Nausea Pantoprazole Sodium 40 mg 03/28/25 09:00 03/29/25 08:59 Pantoprazole Sodium Iv 40 Mg Vial IV PUSH 40 mg QAM TELLO Administration Radiology Results: ITS Impressions Head CT 03/26/25 19:31 IMPRESSION: 1. No acute intracranial findings. 2. Extensive, bilaterally symmetric chronic small vessel ischemic changes. Renal Ultrasound 03/27/25 14:05 IMPRESSION: Very limited examination with no gross hydronephrosis or large renal masses. If more discrete evaluation of the kidneys is required, consider CT or MRI. The urinary bladder is nondistended with catheter placed. Cholelithiasis incidentally noted in the partially visualized gallbladder. Chest X-Ray 03/28/25 11:27 IMPRESSION: 1. No pneumothorax or other acute cardiopulmonary findings given portable technique. Labs Labs: Laboratory Results - last 24 hr 03/28/25 03/28/25 03/28/25 09:30 11:58 17:05 WBC RBC Hgb Hct MCV MCH MCHC RDW Plt Count MPV Immature Gran % (Auto) Neut % (Auto) Lymph % (Auto) [place] % (Auto) Eos % (Auto) Baso % (Auto) Lymph # (Auto) [place] # (Auto) Eos # (Auto) Baso # (Auto) Abs Immat Gran (auto) Absolute Neuts (auto) Absolute Nucleated RBC Nucleated RBC % Sodium Potassium Chloride Carbon Dioxide Anion Gap BUN Creatinine Estim Creat Clear Calc Estimated GFR Glucose POC Capillary Glucose 98 63 L Calcium Phosphorus Iron TIBC % Saturation Ferritin Total Bilirubin AST ALT Alkaline Phosphatase C-Reactive Protein Total Protein Albumin Vitamin B12 Folate U Random Total Protein 115 Protein/Creat Ratio 2 0.53 H 03/28/25 03/28/25 03/28/25 18:02 18:48 23:41 WBC RBC Hgb Hct MCV MCH MCHC RDW Plt Count MPV Immature Gran % (Auto) Neut % (Auto) Lymph % (Auto) [place] % (Auto) Eos % (Auto) Baso % (Auto) Lymph # (Auto) [place] # (Auto) Eos # (Auto) Baso # (Auto) Abs Immat Gran (auto) Absolute Neuts (auto) Absolute Nucleated RBC Nucleated RBC % Sodium Potassium Chloride Carbon Dioxide Anion Gap BUN Creatinine Estim Creat Clear Calc Estimated GFR Glucose POC Capillary Glucose 105 84 62 L Calcium Phosphorus Iron TIBC % Saturation Ferritin Total Bilirubin AST ALT Alkaline Phosphatase C-Reactive Protein Total Protein Albumin Vitamin B12 Folate U Random Total Protein Protein/Creat Ratio 2 03/29/25 03/29/25 03/29/25 00:29 01:13 04:27 WBC 12.4 H RBC 2.61 L Hgb 7.0 L Hct 21.2 L MCV 81.2 MCH 26.8 MCHC 33.0 RDW 17.6 H Plt Count 160 MPV 10.8 H Immature Gran % (Auto) 3.6 H Neut % (Auto) 69.0 Lymph % (Auto) 20.7 [place] % (Auto) 5.5 Eos % (Auto) 1.0 Baso % (Auto) 0.2 Lymph # (Auto) 2.56 [place] # (Auto) 0.7 H Eos # (Auto) 0.1 Baso # (Auto) 0.0 Abs Immat Gran (auto) 0.44 H Absolute Neuts (auto) 8.5 H Absolute Nucleated RBC 0.160 H Nucleated RBC % 1.3 H Sodium 135 L Potassium 2.9 L Chloride 102 Carbon Dioxide 21 L Anion Gap 12 BUN 23 H D Creatinine 2.77 H Estim Creat Clear Calc 17 Estimated GFR 17 L Glucose 67 POC Capillary Glucose 115 H 101 Calcium 7.6 L Phosphorus 1.7 L Iron 62 TIBC 62 L % Saturation 100 H Ferritin 487.00 H Total Bilirubin 1.3 AST 62 H ALT 35 Alkaline Phosphatase 64 C-Reactive Protein 7.4 H Total Protein 5.5 L Albumin 2.9 L Vitamin B12 > 1000.0 H Folate 2.8 U Random Total Protein Protein/Creat Ratio 2 03/29/25 03/29/25 07:09 08:34 WBC RBC Hgb Hct MCV MCH MCHC RDW Plt Count MPV Immature Gran % (Auto) Neut % (Auto) Lymph % (Auto) [place] % (Auto) Eos % (Auto) Baso % (Auto) Lymph # (Auto) [place] # (Auto) Eos # (Auto) Baso # (Auto) Abs Immat Gran (auto) Absolute Neuts (auto) Absolute Nucleated RBC Nucleated RBC % Sodium Potassium Chloride Carbon Dioxide Anion Gap BUN Creatinine Estim Creat Clear Calc Estimated GFR Glucose POC Capillary Glucose 123 H 146 H Calcium Phosphorus Iron TIBC % Saturation Ferritin Total Bilirubin AST ALT Alkaline Phosphatase C-Reactive Protein Total Protein Albumin Vitamin B12 Folate U Random Total Protein Protein/Creat Ratio 2
--- NOTE | 2025-03-29 11:30 | P.PNNP_ITS ---
Subjective Date/time seen: 03/29/25 11:30 Interval history: Follow-up for acute kidney injury/acute renal failure on chronic kidney disease. Tolerated hemodialysis treatment yesterday following temporary HD catheter placement without any issue or problems; remains oliguric/anuric at this time; mentation seems a bit better at the time of my visit; no other issues/events overnight or earlier this morning; IV replacement of potassium instituted; issues with hypoglycemia noted so on dextrose IVFs to maintain blood sugars. Exam 2 Narrative: General: ill appearing female in NAD Heart: IRRR, normal S1 and S2; no rub Lungs: decreased at the bases Abdomen: soft, nontender, nondistended, positive bowel sounds Extremities: no cyanosis or clubbing; no edema Skin: warm and intact Objective Data Vital Signs Vital Signs: Vital Signs Temp Pulse Resp BP Pulse Ox O2 Del Method 03/29/25 10:00 85 03/29/25 08:59 83 03/29/25 08:00 79 03/29/25 08:00 98.0 F 85 20 117/32 L 100 03/29/25 06:00 100 03/29/25 04:00 93 03/29/25 04:00 99 Room Air 03/29/25 04:00 97.8 F 86 22 H 118/44 L 100 03/29/25 03:15 113 H 03/29/25 02:00 78 03/29/25 00:00 96 03/29/25 00:00 96 Room Air 03/29/25 00:00 98.1 F 101 H 16 123/50 L 100 03/28/25 22:00 100 03/28/25 21:15 103 H 03/28/25 20:00 102 H 03/28/25 20:00 100 Room Air 03/28/25 17:32 93 03/28/25 17:23 98.1 F 107 H 12 108/51 L 96 03/28/25 17:01 97.3 F L 109 H 16 119/59 L 94 03/28/25 16:26 111 H 128/59 L 03/28/25 16:15 110 H 117/62 03/28/25 16:00 89 03/28/25 16:00 69 93/42 L 03/28/25 15:45 108 H 100/66 03/28/25 15:30 109 H 108/59 L Intake/Output Intake/Output: Intake & Output 03/26/25 03/27/25 03/28/25 03/29/25 23:59 23:59 23:59 23:59 Intake Total 3050 1200 300 850.48 Output Total 150 100 115 15 Balance 2900 1100 185 835.48 Meds/Results Medications: Active Medications Generic Name Dose Route Start Last Admin Trade Name Freq PRN Reason Stop Dose Admin Acetaminophen 650 mg 03/26/25 21:38 Acetaminophen 325 Mg Tablet PO Q4H PRN Mild Pain (1-3) or Fever Artificial Tears 2 drop 03/27/25 06:42 Artificial Tears Ophth Soln 15 Ml Bottle EACH EYE Q12H PRN dry eye(s) Aspirin 81 mg 03/27/25 09:00 03/29/25 09:15 Aspirin 81 Mg Enteric Tablet PO 04/26/25 08:59 Not Given DAILY TELLO Bisacodyl 10 mg 03/27/25 06:42 Bisacodyl 10 Mg Suppository RECTAL DAILY PRN Constipation Dextrose 12.5 gm 03/27/25 11:02 03/29/25 06:48 Dextrose 50% 25 Gm/50 Ml Syringe IV PUSH 12.5 gm PRN PRN Administration Hypoglycemia Protocol Diclofenac Sodium 1 applic 03/27/25 06:42 Diclofenac Sodium 1% 100 Gm Gel (*Bkc) TOPICAL Q4H PRN Joint pain Glucagon 1 mg 03/27/25 11:02 Glucagon For Inj 1 Mg Vial IM PRN PRN Hypoglycemia Protocol Glucose 15 gm 03/27/25 11:02 Glucose Oral Gel 15 Gm Of Glucse In 37.5 Gm Tube PO PRN PRN Hypoglycemia Protocol Heparin Sodium (Porcine) 5,000 units 03/27/25 09:00 03/28/25 09:21 Heparin Sodium 5,000 Units/Ml Vial SUB-Q 5,000 units On Hold: 03/28/25 10:54 Q12HR TELLO Administration Hydrocortisone 1 applic 03/27/25 06:42 Hydrocortisone 1% 30 Gm Cream TOPICAL Q12H PRN Hemorrhoids Dextrose 1,000 mls @ 100 mls/hr 03/27/25 11:02 Dextrose 5% 1,000 Ml IVPB PRN PRN Hypoglycemia Protocol Meropenem 500 mg/ Sodium 100 mls @ 200 mls/hr 03/27/25 14:00 03/29/25 13:41 Chloride IVPB 200 mls/hr DAILY@1400 TELLO Administration Albumin Human 50 mls @ 999 mls/hr 03/28/25 11:59 Albutein IVPB 04/27/25 11:58 Q10M PRN HYPOTENSION Potassium Chloride 40 meq/ 520 mls @ 130 mls/hr 03/29/25 11:45 03/29/25 13:35 Sodium Chloride IVPB 03/29/25 15:44 130 mls/hr ONCE ONE Infusion Dextrose 1,000 mls @ 30 mls/hr 03/29/25 13:15 03/29/25 13:34 Dextrose 10% IV CONT 30 mls/hr .Q24H TELLO Administration Insulin Aspart 2 - 5 units 03/27/25 12:00 03/29/25 12:03 Insulin Aspart (*Bkc) 100 Units/Ml SUB-Q Not Given TIDWM TELLO Protocol Lactic Acid 1 applic 03/27/25 09:00 03/29/25 09:00 Lactic Acid 12% Lotion 225 Btl TOPICAL 04/26/25 08:59 1 applic DAILY TELLO Administration Metoprolol Tartrate 2.5 mg 03/27/25 21:00 03/29/25 08:59 Metoprolol Tartrate Inj 5 Mg/5 Ml Vial IV PUSH 2.5 mg Q6H TELLO Administration Ondansetron HCl 4 mg 03/26/25 21:38 Ondansetron Inj 4 Mg/2 Ml Vial IV PUSH Q4H PRN Nausea Pantoprazole Sodium 40 mg 03/28/25 09:00 03/29/25 08:59 Pantoprazole Sodium Iv 40 Mg Vial IV PUSH 40 mg QAM TELLO Administration Radiology Results: ITS Impressions Head CT 03/26/25 19:31 IMPRESSION: 1. No acute intracranial findings. 2. Extensive, bilaterally symmetric chronic small vessel ischemic changes. Renal Ultrasound 03/27/25 14:05 IMPRESSION: Very limited examination with no gross hydronephrosis or large renal masses. If more discrete evaluation of the kidneys is required, consider CT or MRI. The urinary bladder is nondistended with catheter placed. Cholelithiasis incidentally noted in the partially visualized gallbladder. Chest X-Ray 03/28/25 11:27 IMPRESSION: 1. No pneumothorax or other acute cardiopulmonary findings given portable technique. Labs Labs: Laboratory Tests 03/29/25 04:27 03/29/25 04:27 Calcium 7.6 L Phosphorus 1.7 L Iron 62 TIBC 62 L % Saturation 100 H Ferritin 487.00 H Total Bilirubin 1.3 AST 62 H ALT 35 Alkaline Phosphatase 64 C-Reactive Protein 7.4 H Total Protein 5.5 L Albumin 2.9 L Vitamin B12 > 1000.0 H Folate 2.8 Microbiology 03/26/25 19:22 Blood Blood Culture - Preliminary 03/26/25 19:15 Blood Blood Culture - Preliminary
[2025-03-29] MEDS: POTASSIUM CHLORIDE INJ 40 MEQ in SODIUM CHLORIDE 0.9% IV 500 ML 130 MEQ IVPB (11:59)
[2025-03-29] MEDS: DEXTROSE 10% 1,000 ML 30 ML IV CONT (13:34)
--- NOTE | 2025-03-29 13:36 | PM.IMPN2 ---
Assessment and Plan Assessment and Plan (1) Sepsis: Qualifiers: Sepsis type: sepsis due to unspecified organism Sepsis acute organ dysfunction status: with acute organ dysfunction Severe sepsis acute organ dysfunction type: acute renal failure Acute renal failure type: unspecified Severe sepsis shock status: without septic shock Qualified Code(s): A41.9 - Sepsis, unspecified organism; R65.20 - Severe sepsis without septic shock; N17.9 - Acute kidney failure, unspecified Code(s): A41.9 - Sepsis, unspecified organism Status: Acute (2) UTI (urinary tract infection): Qualifiers: Urinary tract infection type: acute cystitis Hematuria presence: with hematuria Qualified Code(s): N30.01 - Acute cystitis with hematuria Code(s): N39.0 - Urinary tract infection, site not specified Status: Acute (3) Acute kidney injury: Code(s): N17.9 - Acute kidney failure, unspecified Status: Acute (4) Acute encephalopathy: Code(s): G93.40 - Encephalopathy, unspecified Status: Acute (5) Dementia: Qualifiers: Dementia type: unspecified type Dementia severity: severe Dementia behavioral or psychological symptom: with other behavioral disturbance Qualified Code(s): F03.C18 - Unspecified dementia, severe, with other behavioral disturbance Code(s): F03.90 - Unspecified dementia, unspecified severity, without behavioral disturbance, psychotic disturbance, mood disturbance, and anxiety Status: Chronic (6) Type 2 diabetes mellitus: Qualifiers: Diabetes mellitus fdc insulin use: without intermodal dispatcher use Diabetes mellitus complication status: with kidney complications Diabetes mellitus complication detail: with chronic kidney disease Chronic kidney disease stage: unspecified stage Qualified Code(s): E11.22 - Type 2 diabetes mellitus with diabetic chronic kidney disease Code(s): E11.9 - Type 2 diabetes mellitus without complications Status: Acute (7) Elevated troponin: Code(s): R79.89 - Other specified abnormal findings of blood chemistry Status: Acute Plan This is a 69-year-old female who presents to the ED from [facility] due to elevated creatinine on outpatient lab. She has also had altered mental status with increased lethargy. Patient was recently admitted to outside hospital with KRISTEN and UTI and was treated with resolution of KRISTEN. UTI with urine culture growing Enterococcus faecalis as well as ESBL E coli. Since no urinary symptoms this was considered to be contaminant and hence not treated. Family at noted patient progressively test responsive over the course of weak and hence sent to the ED for evaluation. In ED she was tachycardic blood pressure was adequate. Laboratory data revealed WBC of 12.2 hemoglobin 10.4 platelet count 379. Sodium 139 potassium 4.3 chloride 107 bicarbonate 21 BUN 89 and creatinine 7.48 blood sugar of 139 her discharge creatinine was 1.7 in January 2025. BNP 24216 troponin was elevated to 7 with serial troponin flat. Active elevated at 2.5. Urinalysis was positive for UTI with urine WBC more than 100 influenza RSV COVID swab was negative. LFTs were normal. Procalcitonin 0.5 patient received IV fluid resuscitation CT head showed no acute findings extensive bilateral symmetric chronic small-vessel ischemic changes were noted. Chest x-ray with no acute pulmonary findings. Severe arthritis of both shoulders noted. EKG showed sinus tachycardia with ST-T changes. Patient deemed to be septic with UTI with concomitant evidence of acute kidney injury. She has or liquid uric without KRISTEN and profoundly dehydrated. She has underlying advanced dementia She received 3-4 L of IV fluid bolus. Continued on maintenance IV fluids with normal saline at 100 cc an hour. Blood culture urine culture has been obtained. Given recent urine culture finding with E coli ESBL and Enterococcus faecalis antibiotics were switched to meropenem. Goals of care discussion with regard to ongoing acute kidney injury with initiation of dialysis given uremia and worsening acidosis initiation of dialysis has been decided. There surgery has been consulted to place the temporary dialysis catheter to initiate dialysis. Renal ultrasound with no findings of hydronephrosis. Villalba catheter has been placed. Continue to monitor intake and output strictly. Will continue IV fluid resuscitation add albumin to continue to maintain volume status. Monitor strict I&Os. Status post temporary dialysis catheter placement on 03/28/2025 with initiation of dialysis 03/28/2020 AFib with RVR noted 03/27/2025. IV metoprolol scheduled. Transferred to IMU. Cardiology consulted currently rate controlled on metoprolol scheduled. Telemetry reviewed History of severe dementia Anemia with further drop in H&H will hold heparin subQ not a candidate for anticoagulation for AFib. UTI Gram-negative bacilli growing on the culture Sacral/heel pressure ulcers no signs of infection wound care following. senior living resident Type 2 diabetes Hypertension History of congestive heart failure with elevated BNP History of stroke DVT prophylaxis heparin subQ Code status modified code Subjective Date/time seen: 03/29/25 13:36 Interval history: Patient underwent dialysis yesterday. Labs reviewed. Patient more awake per family. Review of Systems Review of Systems: All systems reviewed & are unremarkable except as noted in HPI and below Exam Narrative: General: ill-appearing not in acute distress Eyes: EOMI ENT: neck supple Cardiovascular: Regular rate and rhythm, rate controlled Respiratory: Diminished breath sounds bilaterally not in acute respiratory distress Gastrointestinal: Soft, non tender Genitourinary: no suprapubic tenderness, villalba draining purulent urine Musculoskeletal: No edema, multiple necrotic toe wounds, no drainage. Skin: warm, dry Neuro: More awake oriented x1 to 2. Follows some commands. Psych: flat affect Objective Data Vital Signs Vital Signs: Vital Signs - 24 hr 03/28/25 14:15 03/28/25 14:30 03/28/25 14:45 Temperature Pulse Rate 109 H 108 H 106 H Respiratory Rate Blood Pressure 124/61 125/62 102/54 L Pulse Oximetry Oxygen Delivery 03/28/25 15:00 03/28/25 15:30 03/28/25 15:45 Temperature Pulse Rate 113 H 109 H 108 H Respiratory Rate Blood Pressure 118/66 108/59 L 100/66 Pulse Oximetry Oxygen Delivery 03/28/25 16:00 03/28/25 16:00 03/28/25 16:15 Temperature Pulse Rate 69 89 110 H Respiratory Rate Blood Pressure 93/42 L 117/62 Pulse Oximetry Oxygen Delivery 03/28/25 16:26 03/28/25 17:01 03/28/25 17:23 Temperature 97.3 F L 98.1 F Pulse Rate 111 H 109 H 107 H Respiratory Rate 16 12 Blood Pressure 128/59 L 119/59 L 108/51 L Pulse Oximetry 94 96 Oxygen Delivery 03/28/25 17:32 03/28/25 20:00 03/28/25 20:00 Temperature Pulse Rate 93 102 H Respiratory Rate Blood Pressure Pulse Oximetry 100 Oxygen Delivery Room Air 03/28/25 21:15 03/28/25 22:00 03/29/25 00:00 Temperature 98.1 F Pulse Rate 103 H 100 101 H Respiratory Rate 16 Blood Pressure 123/50 L Pulse Oximetry 100 Oxygen Delivery 03/29/25 00:00 03/29/25 00:00 03/29/25 02:00 Temperature Pulse Rate 96 78 Respiratory Rate Blood Pressure Pulse Oximetry 96 Oxygen Delivery Room Air 03/29/25 03:15 03/29/25 04:00 03/29/25 04:00 Temperature 97.8 F Pulse Rate 113 H 86 Respiratory Rate 22 H Blood Pressure 118/44 L Pulse Oximetry 100 99 Oxygen Delivery Room Air 03/29/25 04:00 03/29/25 06:00 03/29/25 08:00 Temperature 98.0 F Pulse Rate 93 100 85 Respiratory Rate 20 Blood Pressure 117/32 L Pulse Oximetry 100 Oxygen Delivery 03/29/25 08:00 03/29/25 08:59 03/29/25 10:00 Temperature Pulse Rate 79 83 85 Respiratory Rate Blood Pressure Pulse Oximetry Oxygen Delivery 03/29/25 12:00 Temperature 99.3 F Pulse Rate 97 Respiratory Rate 16 Blood Pressure 109/49 L Pulse Oximetry 98 Oxygen Delivery Intake/Output Intake/Output: Intake & Output 03/26/25 03/27/25 03/28/25 03/29/25 23:59 23:59 23:59 23:59 Intake Total 3050 1200 300 642.48 Output Total 150 100 115 15 Balance 2900 1100 185 627.48 Meds/Results Medications: Active Medications Generic Name Dose Route Start Last Admin Trade Name Freq PRN Reason Stop Dose Admin Acetaminophen 650 mg 03/26/25 21:38 Acetaminophen 325 Mg Tablet PO Q4H PRN Mild Pain (1-3) or Fever Artificial Tears 2 drop 03/27/25 06:42 Artificial Tears Ophth Soln 15 Ml Bottle EACH EYE Q12H PRN dry eye(s) Aspirin 81 mg 03/27/25 09:00 03/29/25 09:15 Aspirin 81 Mg Enteric Tablet PO 04/26/25 08:59 Not Given DAILY TELLO Bisacodyl 10 mg 03/27/25 06:42 Bisacodyl 10 Mg Suppository RECTAL DAILY PRN Constipation Dextrose 12.5 gm 03/27/25 11:02 03/29/25 06:48 Dextrose 50% 25 Gm/50 Ml Syringe IV PUSH 12.5 gm PRN PRN Administration Hypoglycemia Protocol Diclofenac Sodium 1 applic 03/27/25 06:42 Diclofenac Sodium 1% 100 Gm Gel (*Bkc) TOPICAL Q4H PRN Joint pain Glucagon 1 mg 03/27/25 11:02 Glucagon For Inj 1 Mg Vial IM PRN PRN Hypoglycemia Protocol Glucose 15 gm 03/27/25 11:02 Glucose Oral Gel 15 Gm Of Glucse In 37.5 Gm Tube PO PRN PRN Hypoglycemia Protocol Heparin Sodium (Porcine) 5,000 units 03/27/25 09:00 03/28/25 09:21 Heparin Sodium 5,000 Units/Ml Vial SUB-Q 5,000 units On Hold: 03/28/25 10:54 Q12HR TELLO Administration Hydrocortisone 1 applic 03/27/25 06:42 Hydrocortisone 1% 30 Gm Cream TOPICAL Q12H PRN Hemorrhoids Dextrose 1,000 mls @ 100 mls/hr 03/27/25 11:02 Dextrose 5% 1,000 Ml IVPB PRN PRN Hypoglycemia Protocol Meropenem 500 mg/ Sodium 100 mls @ 200 mls/hr 03/27/25 14:00 03/29/25 09:01 Chloride IVPB Infused DAILY@1400 TELLO Infusion Albumin Human 50 mls @ 999 mls/hr 03/28/25 11:59 Albutein IVPB 04/27/25 11:58 Q10M PRN HYPOTENSION Potassium Chloride 40 meq/ 520 mls @ 130 mls/hr 03/29/25 11:45 03/29/25 11:59 Sodium Chloride IVPB 03/29/25 15:44 130 mls/hr ONCE ONE Administration Dextrose 1,000 mls @ 30 mls/hr 03/29/25 13:15 03/29/25 13:34 Dextrose 10% IV CONT 30 mls/hr .Q24H TELLO Administration Insulin Aspart 2 - 5 units 03/27/25 12:00 03/29/25 12:03 Insulin Aspart (*Bkc) 100 Units/Ml SUB-Q Not Given [facility] Protocol Lactic Acid 1 applic 03/27/25 09:00 03/29/25 09:00 Lactic Acid 12% Lotion 225 Btl TOPICAL 04/26/25 08:59 1 applic DAILY TELLO Administration Metoprolol Tartrate 2.5 mg 03/27/25 21:00 03/29/25 08:59 Metoprolol Tartrate Inj 5 Mg/5 Ml Vial IV PUSH 2.5 mg Q6H TLELO Administration Ondansetron HCl 4 mg 03/26/25 21:38 Ondansetron Inj 4 Mg/2 Ml Vial IV PUSH Q4H PRN Nausea Pantoprazole Sodium 40 mg 03/28/25 09:00 03/29/25 08:59 Pantoprazole Sodium Iv 40 Mg Vial IV PUSH 40 mg QAM TELLO Administration Radiology Results: ITS Impressions Head CT 03/26/25 19:31 IMPRESSION: 1. No acute intracranial findings. 2. Extensive, bilaterally symmetric chronic small vessel ischemic changes. Renal Ultrasound 03/27/25 14:05 IMPRESSION: Very limited examination with no gross hydronephrosis or large renal masses. If more discrete evaluation of the kidneys is required, consider CT or MRI. The urinary bladder is nondistended with catheter placed. Cholelithiasis incidentally noted in the partially visualized gallbladder. Chest X-Ray 03/28/25 11:27 IMPRESSION: 1. No pneumothorax or other acute cardiopulmonary findings given portable technique. Labs Labs: Laboratory Results - last 24 hr 03/28/25 03/28/25 03/28/25 17:05 18:02 18:48 WBC RBC Hgb Hct MCV MCH MCHC RDW Plt Count MPV Immature Gran % (Auto) Neut % (Auto) Lymph % (Auto) [place] % (Auto) Eos % (Auto) Baso % (Auto) Lymph # (Auto) [place] # (Auto) Eos # (Auto) Baso # (Auto) Abs Immat Gran (auto) Absolute Neuts (auto) Absolute Nucleated RBC Nucleated RBC % Sodium Potassium Chloride Carbon Dioxide Anion Gap BUN Creatinine Estim Creat Clear Calc Estimated GFR Glucose POC Capillary Glucose 63 L 105 84 Calcium Phosphorus Iron TIBC % Saturation Ferritin Total Bilirubin AST ALT Alkaline Phosphatase C-Reactive Protein Total Protein Albumin Vitamin B12 Folate 03/28/25 03/29/25 03/29/25 23:41 00:29 01:13 WBC RBC Hgb Hct MCV MCH MCHC RDW Plt Count MPV Immature Gran % (Auto) Neut % (Auto) Lymph % (Auto) [place] % (Auto) Eos % (Auto) Baso % (Auto) Lymph # (Auto) [place] # (Auto) Eos # (Auto) Baso # (Auto) Abs Immat Gran (auto) Absolute Neuts (auto) Absolute Nucleated RBC Nucleated RBC % Sodium Potassium Chloride Carbon Dioxide Anion Gap BUN Creatinine Estim Creat Clear Calc Estimated GFR Glucose POC Capillary Glucose 62 L 115 H 101 Calcium Phosphorus Iron TIBC % Saturation Ferritin Total Bilirubin AST ALT Alkaline Phosphatase C-Reactive Protein Total Protein Albumin Vitamin B12 Folate 12/03/29/25 03/29/25 04:27 07:09 08:34 WBC 12.4 H RBC 2.61 L Hgb 7.0 L Hct 21.2 L MCV 81.2 MCH 26.8 MCHC 33.0 RDW 17.6 H Plt Count 160 MPV 10.8 H Immature Gran % (Auto) 3.6 H Neut % (Auto) 69.0 Lymph % (Auto) 20.7 [place] % (Auto) 5.5 Eos % (Auto) 1.0 Baso % (Auto) 0.2 Lymph # (Auto) 2.56 [place] # (Auto) 0.7 H Eos # (Auto) 0.1 Baso # (Auto) 0.0 Abs Immat Gran (auto) 0.44 H Absolute Neuts (auto) 8.5 H Absolute Nucleated RBC 0.160 H Nucleated RBC % 1.3 H Sodium 135 L Potassium 2.9 L Chloride 102 Carbon Dioxide 21 L Anion Gap 12 BUN 23 H D Creatinine 2.77 H Estim Creat Clear Calc 17 Estimated GFR 17 L Glucose 67 POC Capillary Glucose 123 H 146 H Calcium 7.6 L Phosphorus 1.7 L Iron 62 TIBC 62 L % Saturation 100 H Ferritin 487.00 H Total Bilirubin 1.3 AST 62 H ALT 35 Alkaline Phosphatase 64 C-Reactive Protein 7.4 H Total Protein 5.5 L Albumin 2.9 L Vitamin B12 > 1000.0 H Folate 2.8 03/29/25 11:45 WBC RBC Hgb Hct MCV MCH MCHC RDW Plt Count MPV Immature Gran % (Auto) Neut % (Auto) Lymph % (Auto) [place] % (Auto) Eos % (Auto) Baso % (Auto) Lymph # (Auto) [place] # (Auto) Eos # (Auto) Baso # (Auto) Abs Immat Gran (auto) Absolute Neuts (auto) Absolute Nucleated RBC Nucleated RBC % Sodium Potassium Chloride Carbon Dioxide Anion Gap BUN Creatinine Estim Creat Clear Calc Estimated GFR Glucose POC Capillary Glucose 112 H Calcium Phosphorus Iron TIBC % Saturation Ferritin Total Bilirubin AST ALT Alkaline Phosphatase C-Reactive Protein Total Protein Albumin Vitamin B12 Folate
[2025-03-29] MEDS: MEROPENEM 500 MG in SODIUM CHLORIDE 0.9% IV 100 ML 200 ML IVPB (13:41)
--- NOTE | 2025-03-29 15:13 | PCSTNOTE ---
Therapist attempted to have patient try oral feedings. First patient stated, NO and when therapist reworded the question with encouragement, patient basically said, I told you no. Attempt terminated. Will keep open one more day.
[2025-03-30] VITALS (30 sets, daily range): BP systolic 85–140; BP diastolic 25–72; PULSE 80–112; RESP 16–21; TEMP 35.8–37.5; O2SAT 90–100
[2025-03-30] MEDS: METOPROLOL TARTRATE INJ 5 MG/5 ML VIAL 2.5 MG IV PUSH ×3 (03:17→21:46)
[2025-03-30 05:05] LABS: Hematocrit 23.5 % (37.0-47.0); Hemoglobin 7.6 g/dL (12.0-15.0); Immature Granulocyte Percent A 4.3 % (0-0.5); Lymphocytes Absolute Auto 3.36 K/mm3 (0.9-3.2); Mean Corpuscular HGB Conc 32.3 g/dl (32-36); Mean Corpuscular Hemoglobin 26.2 pg (26-34); Mean Corpuscular Volume 81.0 fl (80-100); Nucleated Red Blood Cells Absolute Auto 0.270 K/mm3 (0.0-0.012); Nucleated Red Blood Cells Perc 1.8 % (0.0-0.2); Platelet Count Result 157 k/mm3 (150-375); Red Blood Count 2.90 M/mm3 (4.2-5.4); White Blood Count 14.7 K/mm3 (4.5-10.0)
[2025-03-30 05:54] LABS: Alanine Aminotransferase 42 U/L (6-35); Albumin Level 2.6 g/dL (3.5-5.1); Alkaline Phosphatase 69 U/L (38-126); Anion Gap 18 mmol/L (4-12); Aspartate Amino Transferase 64 U/L (14-36); Bilirubin,Total 1.1 mg/dL (0.2-1.3); Blood Urea Nitrogen 22 mg/dL (7-17); CRP 6.9 mg/dL (<1.0); Calcium 7.5 mg/dL (8.4-10.2); Carbon Dioxide 14 mmol/L (22-30); Chloride 103 mmol/L (98-107); Estimated CRCL calculation 14 ml/min; Estimated Glomerular Filt Rate 13; Glucose 111 mg/dL (65-110); Magnesium 1.7 mg/dL (1.6-2.3); Potassium 3.6 mmol/L (3.4-5.0); Sodium 135 mmol/L (137-145); Total Protein 5.1 g/dL (6.3-8.2)
--- NOTE | 2025-03-30 08:40 | PCSTNOTE ---
03/30/25: Attempted to complete BSE, patient refusing trials. Contacted physician.
--- NOTE | 2025-03-30 09:52 | PCNFU ---
Addendum entered by Sendy Pereira, RD, LDN 03/30/25 13:13: Pt had an NGT placed for feedings. Recommend to start tube feedings when tube placement is verified. Recommend Nepro at a goal rate of 40ml/hr. Initiate at 10ml/hr and increase q4 hrs as tolerated to goal rate of 40ml/hr. This provides 1584kcals, 71g protein, 639ml free water. Will monitor and follow up. Original Note: Nutrition Follow-Up Complete: Inadequate energy intake related to level of alertness as evidenced by by not alert or oriented to take food PO Increased nutrient needs related to altered skin integrity as evidenced by noted pressure injuries Goal:Diet order with PO intake Pt not meeting goal Pt current nutrition is remains NPO. Nutrition recommendation: Advance diet when appropriate Last recorded weight is 78.7 kg. Bowel Motility: +BM 03/28 Labs Reviewed: Hgb:7.6, HCT:23.5, Alb:2.6, Na:135, GFR:13, BUN:22, Cr:3.5, Glu:111 Meds Noted: protonix, novolog Skin: DTPI to sacrum, stage III to ankle, mechanical pressure injury to thigh Additional Notes: Pt remains NPO, pt is more alert and able to answer basic questions today but noted she refused oral care per nurse and is refusing to eat or drink. Today is day 3 for NPO. Will need to advance diet or consider alternative nutrition support to meet estimated needs. Monitor A&O status, diet orders, intake, wt, labs. Follow up in 3 days.
[2025-03-30] MEDS: LACTIC ACID 12% LOTION 225 BTL 1 APPLIC TOPICAL (10:12)
[2025-03-30] MEDS: PANTOPRAZOLE SODIUM IV 40 MG VIAL IV PUSH (10:12)
--- NOTE | 2025-03-30 11:55 | WPDCDIQUERY2 ---
CDI Query Clarification Request Encephalopathy has been documented. Please clarify type of encephalopathy: Metabolic Toxic Hepatic Hypertensive Other Unable to Determine Assessment and Plan (1) Sepsis: Qualifiers: Sepsis type: sepsis due to unspecified organism Sepsis acute organ dysfunction status: with acute organ dysfunction Severe sepsis acute organ dysfunction type: acute renal failure Acute renal failure type: unspecified Severe sepsis shock status: without septic shock Qualified Code(s): A41.9 - Sepsis, unspecified organism; R65.20 - Severe sepsis without septic shock; N17.9 - Acute kidney failure, unspecified Code(s): A41.9 - Sepsis, unspecified organism Status: Acute (2) UTI (urinary tract infection): Qualifiers: Urinary tract infection type: acute cystitis Hematuria presence: with hematuria Qualified Code(s): N30.01 - Acute cystitis with hematuria Code(s): N39.0 - Urinary tract infection, site not specified Status: Acute (3) Acute kidney injury: Code(s): N17.9 - Acute kidney failure, unspecified Status: Acute (4) Acute encephalopathy: Code(s): G93.40 - Encephalopathy, unspecified Status: Acute (5) Dementia: Qualifiers: Dementia type: unspecified type Dementia severity: severe Dementia behavioral or psychological symptom: with other behavioral disturbance Qualified Code(s): F03.C18 - Unspecified dementia, severe, with other behavioral disturbance Code(s): F03.90 - Unspecified dementia, unspecified severity, without behavioral disturbance, psychotic disturbance, mood disturbance, and anxiety Status: Chronic (6) Type 2 diabetes mellitus: Qualifiers: Diabetes mellitus intermodal customer service insulin use: without intermodal customer service use Diabetes mellitus complication status: with kidney complications Diabetes mellitus complication detail: with chronic kidney disease Chronic kidney disease stage: unspecified stage Qualified Code(s): E11.22 - Type 2 diabetes mellitus with diabetic chronic kidney disease Code(s): E11.9 - Type 2 diabetes mellitus without complications Status: Acute (7) Elevated troponin: Code(s): R79.89 - Other specified abnormal findings of blood chemistry Status: Acute <Lyric Justice RN - Last Filed: 03/30/25 11:55> Provider Comments Encephalopathy metabolic <Drake Caraballo MD - Last Filed: 03/31/25 18:16>
--- NOTE | 2025-03-30 13:27 | PM.PNCARD ---
Progress Note: A&P Assessment and Plan (1) Atrial fibrillation: Code(s): I48.91 - Unspecified atrial fibrillation Status: Acute (2) Acute kidney injury: Code(s): N17.9 - Acute kidney failure, unspecified Status: Acute (3) Essential hypertension: Code(s): I10 - Essential (primary) hypertension Status: Acute (4) Dementia: Qualifiers: Dementia type: unspecified type Dementia severity: severe Dementia behavioral or psychological symptom: with other behavioral disturbance Qualified Code(s): F03.C18 - Unspecified dementia, severe, with other behavioral disturbance Code(s): F03.90 - Unspecified dementia, unspecified severity, without behavioral disturbance, psychotic disturbance, mood disturbance, and anxiety Status: Chronic Plan -atrial fibrillation, new diagnosis -advanced dimension -history of hypertension -severe anemia -acute renal failure -in regards to AFib, new diagnosis. Rate controlled. Continue metoprolol 2.5 mg IV q.6 hours and transition to p.o. metoprolol when able to tolerate. At that that is this patient is a candidate for anticoagulation given advanced severe dementia and severe anemia. -hypokalemia resolved -in regards to acute renal failure, status post hemodialysis catheter placement. Was started on dialysis successfully March 28 -regards hypertension, continue metoprolol -gas to severe anemia, hemoglobin dropped from 9-7.2, today hemoglobin is 7 Cardiology will follow along as needed. Please call with any questions. Subjective Date/time seen: 03/30/25 13:27 Interval history: 69-year-old female with a past medical history of dementia, CVA, essential hypertension, CHF and diabetes who presented to the ER from [facility] due to elevated creatinine on outpatient labs. The patient is unable to provide any history and will only open her eyes to verbal stimuli. She will not follow commands or communicate. Evidently the labs were performed due to patient being more altered than baseline. Family reported that the patient had been progressively less responsive over the course of the week. The patient was sent into the ER for evaluation. She is in AFib with controlled heart rate. Sometimes sinus rhythm frequent PACs. Patient is laying some non and in bed in flat position. She appears to be cachectic. On room air. Nonverbal. Her eyes closedHemoglobin on admission 9.1 and today 7.2. Creatinine on admission 6.95. Potassium today 3.1. White cell count 12.8 K Chest x-ray reviewed and as myself on admission unremarkable. EKG initially sinus tachycardia repeat EKG atrial fibrillation. Date of service 03/29: Receives hemodialysis catheter yesterday and started on dialysis. Her AFib has higher heart rate today low 100s. She is on IV metoprolol today. I am not sure if she was not able to swallow yesterday Date of service 03/30/2025: Heart rate is well controlled with IV metoprolol. Review of Systems Review of Systems: ROS unobtainable: Yes unobtainable due to mental status (Underlying dementia. Patient is nonverbal) Exam Const: General: comfortable, no acute distress and tired appearing Other: Not in distress HENMT: Other: No epistaxis Eyes: General: appearance normal, both eyes and all related structures Neck: Other: Supple Chest: Other: Symmetric lung expansion Resp: Effort & Inspection: normal respiratory effort Auscultation: diminished lung sounds Other: Symmetric lung expansion Cardio: Rate: regular rate Rhythm: abnormal rhythm irregularly irregular GI: Other: No distension Skin: Other: No rash Neuro: Other: Nonverbal. Underlying dementia Extrem: Other: No edema Psych: Other: Advanced dementia Objective Data Vital Signs Vital Signs: Vital Signs - 24 hr 03/29/25 14:00 03/29/25 16:00 03/29/25 16:00 Temperature Pulse Rate 100 94 Respiratory Rate Blood Pressure Pulse Oximetry Oxygen Delivery Room Air 03/29/25 16:00 03/29/25 16:38 03/29/25 18:00 Temperature 37.6 C Pulse Rate 109 H 101 H 85 Respiratory Rate 16 Blood Pressure 111/40 L Pulse Oximetry 100 Oxygen Delivery 03/29/25 20:00 03/29/25 20:00 03/29/25 20:00 Temperature 37.0 C Pulse Rate 109 H 94 Respiratory Rate 19 Blood Pressure 118/48 L Pulse Oximetry 95 96 Oxygen Delivery Room Air 03/29/25 21:06 03/29/25 22:00 03/30/25 00:00 Temperature 36.9 C Pulse Rate 109 H 106 H 108 H Respiratory Rate 17 Blood Pressure 98/33 L Pulse Oximetry 97 Oxygen Delivery 03/30/25 00:00 03/30/25 00:00 03/30/25 02:00 Temperature Pulse Rate 107 H 98 Respiratory Rate Blood Pressure Pulse Oximetry 96 Oxygen Delivery Room Air 03/30/25 03:17 03/30/25 04:00 03/30/25 04:00 Temperature Pulse Rate 96 97 Respiratory Rate Blood Pressure Pulse Oximetry 95 Oxygen Delivery Room Air 03/30/25 04:00 03/30/25 06:00 03/30/25 08:00 Temperature 36.5 C 37.4 C Pulse Rate 97 102 H 106 H Respiratory Rate 21 H 16 Blood Pressure 112/34 L 122/72 Pulse Oximetry 98 96 Oxygen Delivery 03/30/25 08:00 03/30/25 10:12 03/30/25 12:00 Temperature 37.4 C Pulse Rate 107 H 99 105 H Respiratory Rate 16 Blood Pressure 101/46 L Pulse Oximetry 97 Oxygen Delivery Intake/Output Intake/Output: Intake & Output 03/27/25 03/28/25 03/29/25 03/30/25 23:59 23:59 23:59 23:59 Intake Total 1200 300 950.48 683.5 Output Total 100 115 15 15 Balance 1100 185 935.48 668.5 Meds/Results Medications: Active Medications Generic Name Dose Route Start Last Admin Trade Name Freq PRN Reason Stop Dose Admin Acetaminophen 650 mg 03/26/25 21:38 Acetaminophen 325 Mg Tablet PO Q4H PRN Mild Pain (1-3) or Fever Artificial Tears 2 drop 03/27/25 06:42 Artificial Tears Ophth Soln 15 Ml Bottle EACH EYE Q12H PRN dry eye(s) Aspirin 81 mg 03/27/25 09:00 03/30/25 10:00 Aspirin 81 Mg Enteric Tablet PO 04/26/25 08:59 Not Given DAILY TELLO Bisacodyl 10 mg 03/27/25 06:42 Bisacodyl 10 Mg Suppository RECTAL DAILY PRN Constipation Dextrose 12.5 gm 03/27/25 11:02 03/29/25 06:48 Dextrose 50% 25 Gm/50 Ml Syringe IV PUSH 12.5 gm PRN PRN Administration Hypoglycemia Protocol Diclofenac Sodium 1 applic 03/27/25 06:42 Diclofenac Sodium 1% 100 Gm Gel (*Bkc) TOPICAL Q4H PRN Joint pain Glucagon 1 mg 03/27/25 11:02 Glucagon For Inj 1 Mg Vial IM PRN PRN Hypoglycemia Protocol Glucose 15 gm 03/27/25 11:02 Glucose Oral Gel 15 Gm Of Glucse In 37.5 Gm Tube PO PRN PRN Hypoglycemia Protocol Heparin Sodium (Porcine) 5,000 units 03/27/25 09:00 03/28/25 09:21 Heparin Sodium 5,000 Units/Ml Vial SUB-Q 5,000 units On Hold: 03/28/25 10:54 Q12HR TELLO Administration Hydrocortisone 1 applic 03/27/25 06:42 Hydrocortisone 1% 30 Gm Cream TOPICAL Q12H PRN Hemorrhoids Dextrose 1,000 mls @ 100 mls/hr 03/27/25 11:02 Dextrose 5% 1,000 Ml IVPB PRN PRN Hypoglycemia Protocol Meropenem 500 mg/ Sodium 100 mls @ 200 mls/hr 03/27/25 14:00 03/29/25 14:11 Chloride IVPB Infused DAILY@1400 TELLO Infusion Albumin Human 50 mls @ 999 mls/hr 03/28/25 11:59 Albutein IVPB 04/27/25 11:58 Q10M PRN HYPOTENSION Dextrose 1,000 mls @ 30 mls/hr 03/29/25 13:15 03/30/25 12:21 Dextrose 10% IV CONT 30 mls/hr .Q24H TELLO Infusion Insulin Aspart 2 - 5 units 03/27/25 12:00 03/30/25 12:03 Insulin Aspart (*Bkc) 100 Units/Ml SUB-Q Not Given TIDWM TELLO Protocol Lactic Acid 1 applic 03/27/25 09:00 03/30/25 10:12 Lactic Acid 12% Lotion 225 Btl TOPICAL 04/26/25 08:59 1 applic DAILY TELLO Administration Lidocaine 1 patch 03/30/25 09:00 03/30/25 10:55 Lidocaine 5% Patch TRANSDERM Not Given DAILY TELLO Metoprolol Tartrate 2.5 mg 03/27/25 21:00 03/30/25 10:12 Metoprolol Tartrate Inj 5 Mg/5 Ml Vial IV PUSH 2.5 mg Q6H TELLO Administration Ondansetron HCl 4 mg 03/26/25 21:38 Ondansetron Inj 4 Mg/2 Ml Vial IV PUSH Q4H PRN Nausea Pantoprazole Sodium 40 mg 03/28/25 09:00 03/30/25 10:12 Pantoprazole Sodium Iv 40 Mg Vial IV PUSH 40 mg QAM TELLO Administration Radiology Results: ITS Impressions Head CT 03/26/25 19:31 IMPRESSION: 1. No acute intracranial findings. 2. Extensive, bilaterally symmetric chronic small vessel ischemic changes. Renal Ultrasound 03/27/25 14:05 IMPRESSION: Very limited examination with no gross hydronephrosis or large renal masses. If more discrete evaluation of the kidneys is required, consider CT or MRI. The urinary bladder is nondistended with catheter placed. Cholelithiasis incidentally noted in the partially visualized gallbladder. Chest X-Ray 03/28/25 11:27 IMPRESSION: 1. No pneumothorax or other acute cardiopulmonary findings given portable technique. Abdomen X-Ray 03/30/25 13:23 IMPRESSION: 1. Nasogastric tube tip in proximal side port in the body the stomach. Labs Labs: Laboratory Results - last 24 hr 03/29/25 03/29/25 03/29/25 18:10 21:10 23:20 WBC RBC Hgb Hct MCV MCH MCHC RDW Plt Count MPV Immature Gran % (Auto) Neut % (Auto) Lymph % (Auto) [place] % (Auto) Eos % (Auto) Baso % (Auto) Lymph # (Auto) [place] # (Auto) Eos # (Auto) Baso # (Auto) Abs Immat Gran (auto) Absolute Neuts (auto) Absolute Nucleated RBC Nucleated RBC % Sodium Potassium Chloride Carbon Dioxide Anion Gap BUN Creatinine Estim Creat Clear Calc Estimated GFR Glucose POC Capillary Glucose 108 H 122 H 124 H Calcium Phosphorus Magnesium Total Bilirubin AST ALT Alkaline Phosphatase C-Reactive Protein Total Protein Albumin Blood Type Antibody Screen 03/30/25 03/30/25 03/30/25 04:31 04:32 11:01 WBC 14.7 H RBC 2.90 L Hgb 7.6 L Hct 23.5 L MCV 81.0 MCH 26.2 MCHC 32.3 RDW 17.7 H Plt Count 157 MPV 11.5 H Immature Gran % (Auto) 4.3 H Neut % (Auto) 66.5 Lymph % (Auto) 22.8 [place] % (Auto) 5.5 Eos % (Auto) 0.5 Baso % (Auto) 0.4 Lymph # (Auto) 3.36 H [place] # (Auto) 0.8 H Eos # (Auto) 0.1 Baso # (Auto) 0.1 Abs Immat Gran (auto) 0.63 H Absolute Neuts (auto) 9.8 H Absolute Nucleated RBC 0.270 H Nucleated RBC % 1.8 H Sodium 135 L Potassium 3.6 Chloride 103 Carbon Dioxide 14 L Anion Gap 18 H BUN 22 H Creatinine 3.49 H Estim Creat Clear Calc 14 Estimated GFR 13 L Glucose 111 H POC Capillary Glucose 134 H Calcium 7.5 L Phosphorus 1.9 L Magnesium 1.7 Total Bilirubin 1.1 AST 64 H ALT 42 H Alkaline Phosphatase 69 C-Reactive Protein 6.9 H Total Protein 5.1 L Albumin 2.6 L Blood Type A Positive Antibody Screen Negative
--- NOTE | 2025-03-30 13:32 | PCOTNOTE ---
Attempted to see pt for OT evaluation. Pt initially opens eyes slightly and states no and after repeated attempts to engage pt, pt stops responding to therapist. RN notified.
[2025-03-30] MEDS: DEXTROSE 10% 1,000 ML 30 ML IV CONT (14:36)
[2025-03-30] MEDS: MEROPENEM 500 MG in SODIUM CHLORIDE 0.9% IV 100 ML 200 ML IVPB (14:36)
--- NOTE | 2025-03-30 14:39 | P.PNIM_ITS ---
Assessment and Plan Assessment and Plan (1) Sepsis: Qualifiers: Sepsis type: sepsis due to unspecified organism Sepsis acute organ dysfunction status: with acute organ dysfunction Severe sepsis acute organ dysfunction type: acute renal failure Acute renal failure type: unspecified Severe sepsis shock status: without septic shock Qualified Code(s): A41.9 - Sepsis, unspecified organism; R65.20 - Severe sepsis without septic shock; N17.9 - Acute kidney failure, unspecified Code(s): A41.9 - Sepsis, unspecified organism Status: Acute (2) UTI (urinary tract infection): Qualifiers: Urinary tract infection type: acute cystitis Hematuria presence: with hematuria Qualified Code(s): N30.01 - Acute cystitis with hematuria Code(s): N39.0 - Urinary tract infection, site not specified Status: Acute (3) Acute kidney injury: Code(s): N17.9 - Acute kidney failure, unspecified Status: Acute (4) Acute encephalopathy: Code(s): G93.40 - Encephalopathy, unspecified Status: Acute (5) Dementia: Qualifiers: Dementia type: unspecified type Dementia severity: severe Dementia behavioral or psychological symptom: with other behavioral disturbance Qualified Code(s): F03.C18 - Unspecified dementia, severe, with other behavioral disturbance Code(s): F03.90 - Unspecified dementia, unspecified severity, without behavioral disturbance, psychotic disturbance, mood disturbance, and anxiety Status: Chronic (6) Type 2 diabetes mellitus: Qualifiers: Diabetes mellitus senior living insulin use: without terminal supervisor use Diabetes mellitus complication status: with kidney complications Diabetes mellitus complication detail: with chronic kidney disease Chronic kidney disease stage: unspecified stage Qualified Code(s): E11.22 - Type 2 diabetes mellitus with diabetic chronic kidney disease Code(s): E11.9 - Type 2 diabetes mellitus without complications Status: Acute (7) Elevated troponin: Code(s): R79.89 - Other specified abnormal findings of blood chemistry Status: Acute Plan This is a 69-year-old female who presents to the ED from [facility] due to elevated creatinine on outpatient lab. She has also had altered mental status with increased lethargy. Patient was recently admitted to outside hospital with KRISTEN and UTI and was treated with resolution of KRISTEN. UTI with urine culture growing Enterococcus faecalis as well as ESBL E coli. Since no urinary symptoms this was considered to be contaminant and hence not treated. Family at noted patient progressively test responsive over the course of weak and hence sent to the ED for evaluation. In ED she was tachycardic blood pressure was adequate. Laboratory data revealed WBC of 12.2 hemoglobin 10.4 platelet count 379. Sodium 139 potassium 4.3 chloride 107 bicarbonate 21 BUN 89 and creatinine 7.48 blood sugar of 139 her discharge creatinine was 1.7 in January 2025. BNP 81029 troponin was elevated to 7 with serial troponin flat. Active elevated at 2.5. Urinalysis was positive for UTI with urine WBC more than 100 influenza RSV COVID swab was negative. LFTs were normal. Procalcitonin 0.5 patient received IV fluid resuscitation CT head showed no acute findings extensive bilateral symmetric chronic small- vessel ischemic changes were noted. Chest x-ray with no acute pulmonary findings. Severe arthritis of both shoulders noted. EKG showed sinus tachycardia with ST-T changes. Patient deemed to be septic with UTI with concomitant evidence of acute kidney injury. She has oliguric KRISTEN and profoundly dehydrated. She has underlying advanced dementia She received 3-4 L of IV fluid bolus. Continued on maintenance IV fluids with normal saline at 100 cc an hour. Blood culture urine culture has been obtained. Given recent urine culture finding with E coli ESBL and Enterococcus faecalis antibiotics were switched to meropenem. Goals of care discussion with regard to ongoing acute kidney injury with initiation of dialysis given uremia and worsening acidosis initiation of dialysis has been decided. There surgery has been consulted to place the temporary dialysis catheter to initiate dialysis. Renal ultrasound with no findings of hydronephrosis. Villalba catheter has been placed. Continue to monitor intake and output strictly. Will continue IV fluid resuscitation add albumin to continue to maintain volume status. Monitor strict I&Os. Status post temporary dialysis catheter placement on 03/28/2025 with initiation of dialysis 03/28/2025. She will get another round of dialysis today 03/30/2025 AFib with RVR noted 03/27/2025. IV metoprolol scheduled. Transferred to IMU. Cardiology consulted currently rate controlled on metoprolol scheduled. Telemetry reviewed and currently controlled with scheduled metoprolol History of severe dementia Anemia with further drop in H&H will hold heparin subQ not a candidate for anti coagulation for AFib. UTI Gram-negative bacilli growing on the culture await identification. Gram- negative bacilli isolated Sacral/heel pressure ulcers no signs of infection wound care following. senior living resident Dysphagia will place NG and start tube feeds. Discussed with family Type 2 diabetes Hypertension History of congestive heart failure with elevated BNP History of stroke DVT prophylaxis heparin subQ Code status modified code Subjective Date/time seen: 03/30/25 14:39 Interval history: Patient had no overnight events. Patient more awake however refuses care. Discussed with Nephrology. Telemetry reviewed. Labs reviewed. Heart rate controlled Review of Systems Review of Systems: All systems reviewed & are unremarkable except as noted in HPI and below Exam Narrative: General: ill-appearing not in acute distress Eyes: EOMI ENT: neck supple Cardiovascular: Regular rate and rhythm, rate controlled Respiratory: Diminished breath sounds bilaterally not in acute respiratory distress Gastrointestinal: Soft, non tender Genitourinary: no suprapubic tenderness, villalba catheter in place Musculoskeletal: No edema, multiple necrotic toe wounds, no drainage. Skin: warm, dry Neuro: Awake Follows some commands. Psych: Non cooperative Objective Data Vital Signs Vital Signs: Vital Signs - 24 hr 03/29/25 16:00 03/29/25 16:00 03/29/25 16:00 Temperature 99.6 F Pulse Rate 94 109 H Respiratory Rate 16 Blood Pressure 111/40 L Pulse Oximetry 100 Oxygen Delivery Room Air 03/29/25 16:38 03/29/25 18:00 03/29/25 20:00 Temperature 98.6 F Pulse Rate 101 H 85 109 H Respiratory Rate 19 Blood Pressure 118/48 L Pulse Oximetry 95 Oxygen Delivery 03/29/25 20:00 03/29/25 20:00 03/29/25 21:06 Temperature Pulse Rate 94 109 H Respiratory Rate Blood Pressure Pulse Oximetry 96 Oxygen Delivery Room Air 03/29/25 22:00 03/30/25 00:00 03/30/25 00:00 Temperature 98.5 F Pulse Rate 106 H 108 H Respiratory Rate 17 Blood Pressure 98/33 L Pulse Oximetry 97 96 Oxygen Delivery Room Air 03/30/25 00:00 03/30/25 02:00 03/30/25 03:17 Temperature Pulse Rate 107 H 98 96 Respiratory Rate Blood Pressure Pulse Oximetry Oxygen Delivery 03/30/25 04:00 03/30/25 04:00 03/30/25 04:00 Temperature 97.7 F Pulse Rate 97 97 Respiratory Rate 21 H Blood Pressure 112/34 L Pulse Oximetry 95 98 Oxygen Delivery Room Air 03/30/25 06:00 03/30/25 08:00 03/30/25 08:00 Temperature 99.4 F Pulse Rate 102 H 106 H 107 H Respiratory Rate 16 Blood Pressure 122/72 Pulse Oximetry 96 Oxygen Delivery 03/30/25 10:12 03/30/25 12:00 Temperature 99.3 F Pulse Rate 99 105 H Respiratory Rate 16 Blood Pressure 101/46 L Pulse Oximetry 97 Oxygen Delivery Intake/Output Intake/Output: Intake & Output 03/27/25 03/28/25 03/29/25 03/30/25 23:59 23:59 23:59 23:59 Intake Total 1200 300 950.48 750.5 Output Total 100 115 15 15 Balance 1100 185 935.48 735.5 Meds/Results Medications: Active Medications Generic Name Dose Route Start Last Admin Trade Name Freq PRN Reason Stop Dose Admin Acetaminophen 650 mg 03/26/25 21:38 Acetaminophen 325 Mg Tablet PO Q4H PRN Mild Pain (1-3) or Fever Artificial Tears 2 drop 03/27/25 06:42 Artificial Tears Ophth Soln 15 Ml Bottle EACH EYE Q12H PRN dry eye(s) Aspirin 81 mg 03/27/25 09:00 03/30/25 10:00 Aspirin 81 Mg Enteric Tablet PO 04/26/25 08:59 Not Given DAILY TELLO Bisacodyl 10 mg 03/27/25 06:42 Bisacodyl 10 Mg Suppository RECTAL DAILY PRN Constipation Dextrose 12.5 gm 03/27/25 11:02 03/29/25 06:48 Dextrose 50% 25 Gm/50 Ml Syringe IV PUSH 12.5 gm PRN PRN Administration Hypoglycemia Protocol Diclofenac Sodium 1 applic 03/27/25 06:42 Diclofenac Sodium 1% 100 Gm Gel (*Bkc) TOPICAL Q4H PRN Joint pain Epoetin Julio Cesar-epbx 10,000 units 03/30/25 18:00 Epoetin Julio Cesar-Epbx 10,000 Units/Ml Vial IV PUSH 03/30/25 18:01 ONCE ONE Glucagon 1 mg 03/27/25 11:02 Glucagon For Inj 1 Mg Vial IM PRN PRN Hypoglycemia Protocol Glucose 15 gm 03/27/25 11:02 Glucose Oral Gel 15 Gm Of Glucse In 37.5 Gm Tube PO PRN PRN Hypoglycemia Protocol Heparin Sodium (Porcine) 5,000 units 03/27/25 09:00 03/28/25 09:21 Heparin Sodium 5,000 Units/Ml Vial SUB-Q 5,000 units On Hold: 03/28/25 10:54 Q12HR TELLO Administration Hydrocortisone 1 applic 03/27/25 06:42 Hydrocortisone 1% 30 Gm Cream TOPICAL Q12H PRN Hemorrhoids Dextrose 1,000 mls @ 100 mls/hr 03/27/25 11:02 Dextrose 5% 1,000 Ml IVPB PRN PRN Hypoglycemia Protocol Meropenem 500 mg/ Sodium 100 mls @ 200 mls/hr 03/27/25 14:00 03/30/25 14:36 Chloride IVPB 200 mls/hr DAILY@1400 TELLO Administration Albumin Human 50 mls @ 999 mls/hr 03/28/25 11:59 Albutein IVPB 04/27/25 11:58 Q10M PRN HYPOTENSION Dextrose 1,000 mls @ 30 mls/hr 03/29/25 13:15 03/30/25 14:36 Dextrose 10% IV CONT 30 mls/hr .Q24H TELLO Administration Sodium Chloride 1,000 mls @ 999 mls/hr 03/30/25 14:23 Normal Saline Iv IV CONT 03/30/25 15:23 .Q1H1M ONE Insulin Aspart 2 - 5 units 03/27/25 12:00 03/30/25 12:03 Insulin Aspart (*Bkc) 100 Units/Ml SUB-Q Not Given TIDWM TELLO Protocol Lactic Acid 1 applic 03/27/25 09:00 03/30/25 10:12 Lactic Acid 12% Lotion 225 Btl TOPICAL 04/26/25 08:59 1 applic DAILY TELLO Administration Lidocaine 1 patch 03/30/25 09:00 03/30/25 10:55 Lidocaine 5% Patch TRANSDERM Not Given DAILY TELLO Metoprolol Tartrate 2.5 mg 03/27/25 21:00 03/30/25 10:12 Metoprolol Tartrate Inj 5 Mg/5 Ml Vial IV PUSH 2.5 mg Q6H TELLO Administration Ondansetron HCl 4 mg 03/26/25 21:38 Ondansetron Inj 4 Mg/2 Ml Vial IV PUSH Q4H PRN Nausea Pantoprazole Sodium 40 mg 03/28/25 09:00 03/30/25 10:12 Pantoprazole Sodium Iv 40 Mg Vial IV PUSH 40 mg QAM TELLO Administration Radiology Results: ITS Impressions Head CT 03/26/25 19:31 IMPRESSION: 1. No acute intracranial findings. 2. Extensive, bilaterally symmetric chronic small vessel ischemic changes. Renal Ultrasound 03/27/25 14:05 IMPRESSION: Very limited examination with no gross hydronephrosis or large renal masses. If more discrete evaluation of the kidneys is required, consider CT or MRI. The urinary bladder is nondistended with catheter placed. Cholelithiasis incidentally noted in the partially visualized gallbladder. Chest X-Ray 03/28/25 11:27 IMPRESSION: 1. No pneumothorax or other acute cardiopulmonary findings given portable technique. Abdomen X-Ray 03/30/25 13:23 IMPRESSION: 1. Nasogastric tube tip in proximal side port in the body the stomach. Labs Labs: Laboratory Results - last 24 hr 03/29/25 03/29/25 03/29/25 18:10 21:10 23:20 WBC RBC Hgb Hct MCV MCH MCHC RDW Plt Count MPV Immature Gran % (Auto) Neut % (Auto) Lymph % (Auto) [place] % (Auto) Eos % (Auto) Baso % (Auto) Lymph # (Auto) [place] # (Auto) Eos # (Auto) Baso # (Auto) Abs Immat Gran (auto) Absolute Neuts (auto) Absolute Nucleated RBC Nucleated RBC % Sodium Potassium Chloride Carbon Dioxide Anion Gap BUN Creatinine Estim Creat Clear Calc Estimated GFR Glucose POC Capillary Glucose 108 H 122 H 124 H Calcium Phosphorus Magnesium Total Bilirubin AST ALT Alkaline Phosphatase C-Reactive Protein Total Protein Albumin Blood Type Antibody Screen 03/30/25 03/30/25 03/30/25 04:31 04:32 11:01 WBC 14.7 H RBC 2.90 L Hgb 7.6 L Hct 23.5 L MCV 81.0 MCH 26.2 MCHC 32.3 RDW 17.7 H Plt Count 157 MPV 11.5 H Immature Gran % (Auto) 4.3 H Neut % (Auto) 66.5 Lymph % (Auto) 22.8 [place] % (Auto) 5.5 Eos % (Auto) 0.5 Baso % (Auto) 0.4 Lymph # (Auto) 3.36 H [place] # (Auto) 0.8 H Eos # (Auto) 0.1 Baso # (Auto) 0.1 Abs Immat Gran (auto) 0.63 H Absolute Neuts (auto) 9.8 H Absolute Nucleated RBC 0.270 H Nucleated RBC % 1.8 H Sodium 135 L Potassium 3.6 Chloride 103 Carbon Dioxide 14 L Anion Gap 18 H BUN 22 H Creatinine 3.49 H Estim Creat Clear Calc 14 Estimated GFR 13 L Glucose 111 H POC Capillary Glucose 134 H Calcium 7.5 L Phosphorus 1.9 L Magnesium 1.7 Total Bilirubin 1.1 AST 64 H ALT 42 H Alkaline Phosphatase 69 C-Reactive Protein 6.9 H Total Protein 5.1 L Albumin 2.6 L Blood Type A Positive Antibody Screen Negative
[2025-03-30] MEDS: EPOETIN ALFA-EPBX 10,000 UNITS/ML VIAL 10000 UNITS IV PUSH (16:07)
[2025-03-30] MEDS: ALBUMIN HUMAN 25% 12.5 GM/50ML 50 ML IVPB (16:36)
[2025-03-30] MEDS: VANCOMYCIN 1,500 MG/NS 500 ML 1,500 MG/500 ML BAG 250 MG IVPB (20:24)
[2025-03-31] VITALS (11 sets, daily range): BP systolic 89–96; BP diastolic 36–51; PULSE 102–119; RESP 16–18; TEMP 36.2–36.3; O2SAT 95–99
--- NOTE | 2025-03-31 02:11 | PC.NURSE ---
SBAR tubed to 345 nurse Kallie. Verbal report given.
--- NOTE | 2025-03-31 03:55 | PC.NURSE ---
Transferred to room 345 via bed with all belongings. No change from previous assessment.
--- NOTE | 2025-03-31 04:02 | PC.NURSE ---
This patient, Yisel Alvarez, was received from [facility] on 03/31/25 at 0350. Patient/family oriented to unit policies and routines
[2025-03-31 05:23] LABS: Hematocrit 22.5 % (37.0-47.0); Hemoglobin 7.3 g/dL (12.0-15.0); Immature Granulocyte Percent A 5.0 % (0-0.5); Lymphocytes Absolute Auto 2.14 K/mm3 (0.9-3.2); Mean Corpuscular HGB Conc 32.4 g/dl (32-36); Mean Corpuscular Hemoglobin 26.5 pg (26-34); Mean Corpuscular Volume 81.8 fl (80-100); Nucleated Red Blood Cells Absolute Auto 0.320 K/mm3 (0.0-0.012); Nucleated Red Blood Cells Perc 2.4 % (0.0-0.2); Platelet Count Result 106 k/mm3 (150-375); Red Blood Count 2.75 M/mm3 (4.2-5.4); White Blood Count 13.2 K/mm3 (4.5-10.0)
[2025-03-31 05:52] LABS: Alanine Aminotransferase 44 U/L (6-35); Albumin Level 2.7 g/dL (3.5-5.1); Alkaline Phosphatase 79 U/L (38-126); Anion Gap 18 mmol/L (4-12); Anisocytosis 1+; Aspartate Amino Transferase 59 U/L (14-36); Bilirubin,Total 1.7 mg/dL (0.2-1.3); Blood Urea Nitrogen 7 mg/dL (7-17); CRP 6.3 mg/dL (<1.0); Calcium 7.5 mg/dL (8.4-10.2); Carbon Dioxide 15 mmol/L (22-30); Chloride 101 mmol/L (98-107); Estimated CRCL calculation 24 ml/min; Estimated Glomerular Filt Rate 25; Glucose 96 mg/dL (65-110); Magnesium 1.6 mg/dL (1.6-2.3); Potassium 3.9 mmol/L (3.4-5.0); Sodium 134 mmol/L (137-145); Total Protein 5.0 g/dL (6.3-8.2)
[2025-03-31 05:53] LABS: Burr Cells 2+; Schistocytes None Seen; Target Cells 1+
[2025-03-31] MEDS: PANTOPRAZOLE SODIUM IV 40 MG VIAL IV PUSH (09:07)
[2025-03-31] MEDS: ASPIRIN 81 MG CHEWABLE TABLET FEED TUBE (09:08)
--- NOTE | 2025-03-31 09:25 | PCPTNOTE ---
Spoke with current hospitalist - OK to remove therapy orders due to pt remaining at baseline. Nursing aware.
[2025-03-31] MEDS: ONDANSETRON INJ 4 MG/2 ML VIAL IV PUSH (09:42)
--- NOTE | 2025-03-31 10:15 | PM.PNNEP ---
Subjective Date/time seen: 03/31/25 10:15 Interval history: Follow-up for acute kidney injury/acute renal failure on chronic kidney disease. Tolerated dialysis treatment yesterday but had several episodes of hypotension requiring IV albumin despite the fact no ultrafiltration/fluid removal was being done; mentation seems a bit worse today (less responsive in comparison to yesterday); no other acute issues overnight or earlier this morning. Exam Narrative: General: ill appearing female in NAD Heart: tachycardic, normal S1 and S2; no rub Lungs: decreased at the bases Abdomen: soft, nontender, nondistended, positive bowel sounds Extremities: no cyanosis or clubbing; no edema Skin: no rash Objective Data Vital Signs Vital Signs: Vital Signs Temp Pulse Resp BP Pulse Ox O2 Del Method FiO2 03/31/25 09:07 117 H 03/31/25 08:00 102 H 03/31/25 05:51 97.1 F L 114 H 16 96/42 L 95 03/31/25 04:09 105 H 03/31/25 04:00 113 H 03/31/25 00:00 103 H 03/31/25 00:00 91/40 L 03/30/25 23:14 99.5 F 86 20 100 03/30/25 21:46 112 H 03/30/25 20:00 109 H 03/30/25 20:00 94 Room Air 0 03/30/25 18:30 98.6 F 110 H 16 90/38 L 90 03/30/25 18:18 96.5 F L 106 H 18 94/40 L 94 03/30/25 18:03 102 H 90/45 L 03/30/25 18:00 97 03/30/25 18:00 100 87/45 L 03/30/25 17:45 102 H 90/34 L Intake/Output Intake/Output: Intake & Output 03/28/25 03/29/25 03/30/25 03/31/25 23:59 23:59 23:59 23:59 Intake Total 300 1262.48 900.5 105 Output Total 115 15 15 20 Balance 185 1247.48 885.5 85 Meds/Results Medications: Active Medications Generic Name Dose Route Start Last Admin Trade Name Freq PRN Reason Stop Dose Admin Acetaminophen 650 mg 03/26/25 21:38 Acetaminophen 325 Mg Tablet PO Q4H PRN Mild Pain (1-3) or Fever Artificial Tears 2 drop 03/27/25 06:42 Artificial Tears Ophth Soln 15 Ml Bottle EACH EYE Q12H PRN dry eye(s) Aspirin 81 mg 03/31/25 09:00 03/31/25 09:08 Aspirin 81 Mg Chewable Tablet FEED TUBE 81 mg DAILY TELLO Administration Bisacodyl 10 mg 03/27/25 06:42 Bisacodyl 10 Mg Suppository RECTAL DAILY PRN Constipation Dextrose 12.5 gm 03/27/25 11:02 03/29/25 06:48 Dextrose 50% 25 Gm/50 Ml Syringe IV PUSH 12.5 gm PRN PRN Administration Hypoglycemia Protocol Diclofenac Sodium 1 applic 03/27/25 06:42 Diclofenac Sodium 1% 100 Gm Gel (*Bkc) TOPICAL Q4H PRN Joint pain Glucagon 1 mg 03/27/25 11:02 Glucagon For Inj 1 Mg Vial IM PRN PRN Hypoglycemia Protocol Glucose 15 gm 03/27/25 11:02 Glucose Oral Gel 15 Gm Of Glucse In 37.5 Gm Tube PO PRN PRN Hypoglycemia Protocol Heparin Sodium (Porcine) 5,000 units 03/27/25 09:00 03/28/25 09:21 Heparin Sodium 5,000 Units/Ml Vial SUB-Q 5,000 units On Hold: 03/28/25 10:54 Q12HR TELLO Administration Hydrocortisone 1 applic 03/27/25 06:42 Hydrocortisone 1% 30 Gm Cream TOPICAL Q12H PRN Hemorrhoids Dextrose 1,000 mls @ 100 mls/hr 03/27/25 11:02 Dextrose 5% 1,000 Ml IVPB PRN PRN Hypoglycemia Protocol Meropenem 500 mg/ Sodium 100 mls @ 200 mls/hr 03/27/25 14:00 03/31/25 14:39 Chloride IVPB 200 mls/hr DAILY@1400 TELLO Administration Albumin Human 50 mls @ 999 mls/hr 03/28/25 11:59 03/30/25 17:22 Albutein IVPB 04/27/25 11:58 Infused Q10M PRN Infusion HYPOTENSION Dextrose 1,000 mls @ 30 mls/hr 03/29/25 13:15 03/31/25 14:40 Dextrose 10% IV CONT 0 mls/hr .Q24H TELLO Infusion Albumin Human 200 mls @ 60 mls/hr 03/31/25 15:43 03/31/25 16:47 Albutein IVPB 03/31/25 19:02 60 mls/hr ONCE ONE Administration Sodium Bicarbonate 150 meq/ 1,100 mls @ 50 mls/hr 03/31/25 16:55 Dextrose IV CONT .Q22H TELLO Sodium Chloride 500 mls @ 500 mls/hr 03/31/25 17:06 Normal Saline Iv IV CONT 03/31/25 18:05 .Q1H ONE Magnesium Sulfate/Dextrose 1 gm in 100 mls @ 100 mls/hr 03/31/25 17:15 Magnesium Sulf 1 Gm/D5w 100 Ml IVPB 03/31/25 18:14 ONCE ONE Albumin Human 25 gm in 500 mls @ 125 mls/hr 03/31/25 17:20 Albumin Human 5% IV CONT 03/31/25 21:19 .Q4H ONE Insulin Aspart 2 - 5 units 03/27/25 12:00 03/31/25 12:31 Insulin Aspart (*Bkc) 100 Units/Ml SUB-Q Not Given TIDWM [facility] Protocol Ipratropium [place] 0.5 mg 03/31/25 14:00 03/31/25 15:20 Ipratropium Br 0.02% Inh Soln 0.5 Mg/2.5 Ml Vial INHALATION 0.5 mg Q6HRT [facility] Administration Lactic Acid 1 applic 03/27/25 09:00 03/31/25 11:57 Lactic Acid 12% Lotion 225 Btl TOPICAL 04/26/25 08:59 1 applic DAILY TELLO Administration Levalbuterol HCl 0.63 mg 03/31/25 14:00 03/31/25 15:19 Levalbuterol Neb 1.25 Mg/3 Ml INHALATION 0.63 mg Q6HRT TELLO Administration Lidocaine 1 patch 03/30/25 09:00 03/31/25 11:57 Lidocaine 5% Patch TRANSDERM 1 patch DAILY TELLO Administration Metoprolol Tartrate 2.5 mg 03/27/25 21:00 03/31/25 14:41 Metoprolol Tartrate Inj 5 Mg/5 Ml Vial IV PUSH Not Given Q6H TELLO Midodrine 5 mg 03/31/25 17:00 Midodrine Hcl 2.5 Mg Tablet FEED TUBE TID [facility] Ondansetron HCl 4 mg 03/26/25 21:38 03/31/25 09:42 Ondansetron Inj 4 Mg/2 Ml Vial IV PUSH 4 mg Q4H PRN Administration Nausea Pantoprazole Sodium 40 mg 03/28/25 09:00 03/31/25 09:07 Pantoprazole Sodium Iv 40 Mg Vial IV PUSH 40 mg QAM TELLO Administration Vancomycin HCl 1 each 03/30/25 16:58 Vancomycin For Hemodialysis IVPB PRN PRN Vancomycin Protocol Radiology Results: ITS Impressions Renal Ultrasound 03/27/25 14:05 IMPRESSION: Very limited examination with no gross hydronephrosis or large renal masses. If more discrete evaluation of the kidneys is required, consider CT or MRI. The urinary bladder is nondistended with catheter placed. Cholelithiasis incidentally noted in the partially visualized gallbladder. Abdomen X-Ray 03/30/25 13:23 IMPRESSION: 1. Nasogastric tube tip in proximal side port in the body the stomach. Chest X-Ray 03/31/25 10:00 IMPRESSION: 1. No gross interval change from the March [address] 03/31/25 16:43 Impression: 1.No acute intracranial abnormality. Labs Labs: Laboratory Tests 03/31/25 05:13 WBC 13.2 H Hgb 7.3 L Hct 22.5 L Plt Count 106 L Sodium 134 L Potassium 3.9 Chloride 101 Carbon Dioxide 15 L Anion Gap 18 H BUN 7 D Creatinine 1.99 H Estim Creat Clear Calc 24 Estimated GFR 25 L Glucose 96 Calcium 7.5 L Phosphorus 1.5 L Magnesium 1.6 Total Bilirubin 1.7 H AST 59 H ALT 44 H Alkaline Phosphatase 79 C-Reactive Protein 6.3 H Total Protein 5.0 L Albumin 2.7 L Microbiology 03/26/25 19:15 Blood Blood Culture - Preliminary Methicillin Resis Staph Aureus
[2025-03-31] MEDS: LACTIC ACID 12% LOTION 225 BTL 1 APPLIC TOPICAL (11:57)
[2025-03-31] MEDS: LIDOCAINE 5% PATCH 1 PATCH TRANSDERM (11:57)
--- NOTE | 2025-03-31 12:10 | PCNFU ---
Nutrition Follow-Up Complete: Inadequate energy intake related to level of alertness as evidenced by by not alert or oriented to take food PO Increased nutrient needs related to altered skin integrity as evidenced by noted pressure injuries Goal:Diet order with PO intake Pt current nutrition is Nepro TF. Nutrition recommendation: 20 ml/hr. Goal rate at 40 ml/hr. Last recorded weight is 82.6 kg, up from 80 kg. Bowel Motility: Last reported BM 03/27 Labs Reviewed: PO4 1.5, Cr 1.99, Na 134, Hct 22.5, Hgb 7.3 Meds Noted: Protonix, Heparin. Skin: Stage III- ankle Additional Notes: Spoke with nursing today, patient had emesis. Chest xray negative. Plans to restart tube feedings via NGT of Nepro at 20 ml/hr with flush 30 ml q 4 hours. Recommending Fritz BID flushed via tube for wound healing. Goal rate on tube feeding is 40 ml/hr. Agree with diet order at this time. Monitor A&O status, diet orders, intake, wt, labs every Sunday and Sunday.
[2025-03-31] MEDS: SODIUM CHLORIDE 0.9% IV 250 ML 999 ML IV CONT (14:12)
[2025-03-31] MEDS: MEROPENEM 500 MG in SODIUM CHLORIDE 0.9% IV 100 ML 200 ML IVPB (14:39)
--- NOTE | 2025-03-31 15:07 | PM.IMPN2 ---
Assessment and Plan Assessment and Plan (1) Sepsis: Qualifiers: Sepsis type: sepsis due to unspecified organism Sepsis acute organ dysfunction status: with acute organ dysfunction Severe sepsis acute organ dysfunction type: acute renal failure Acute renal failure type: unspecified Severe sepsis shock status: without septic shock Qualified Code(s): A41.9 - Sepsis, unspecified organism; R65.20 - Severe sepsis without septic shock; N17.9 - Acute kidney failure, unspecified Code(s): A41.9 - Sepsis, unspecified organism Status: Acute (2) UTI (urinary tract infection): Qualifiers: Urinary tract infection type: acute cystitis Hematuria presence: with hematuria Qualified Code(s): N30.01 - Acute cystitis with hematuria Code(s): N39.0 - Urinary tract infection, site not specified Status: Acute (3) Acute kidney injury: Code(s): N17.9 - Acute kidney failure, unspecified Status: Acute (4) Acute encephalopathy: Code(s): G93.40 - Encephalopathy, unspecified Status: Acute (5) Dementia: Qualifiers: Dementia type: unspecified type Dementia severity: severe Dementia behavioral or psychological symptom: with other behavioral disturbance Qualified Code(s): F03.C18 - Unspecified dementia, severe, with other behavioral disturbance Code(s): F03.90 - Unspecified dementia, unspecified severity, without behavioral disturbance, psychotic disturbance, mood disturbance, and anxiety Status: Chronic (6) Type 2 diabetes mellitus: Qualifiers: Diabetes mellitus assisted insulin use: without terminal gauger use Diabetes mellitus complication status: with kidney complications Diabetes mellitus complication detail: with chronic kidney disease Chronic kidney disease stage: unspecified stage Qualified Code(s): E11.22 - Type 2 diabetes mellitus with diabetic chronic kidney disease Code(s): E11.9 - Type 2 diabetes mellitus without complications Status: Acute (7) Elevated troponin: Code(s): R79.89 - Other specified abnormal findings of blood chemistry Status: Acute Plan This is a 69-year-old female who presents to the ED from [facility] due to elevated creatinine on outpatient lab. She has also had altered mental status with increased lethargy. Patient was recently admitted to outside hospital with KRISTEN and UTI and was treated with resolution of KRISTEN. UTI with urine culture growing Enterococcus faecalis as well as ESBL E coli. Since no urinary symptoms this was considered to be contaminant and hence not treated. Family at noted patient progressively test responsive over the course of weak and hence sent to the ED for evaluation. In ED she was tachycardic blood pressure was adequate. Laboratory data revealed WBC of 12.2 hemoglobin 10.4 platelet count 379. Sodium 139 potassium 4.3 chloride 107 bicarbonate 21 BUN 89 and creatinine 7.48 blood sugar of 139 her discharge creatinine was 1.7 in January 2025. BNP 91694 troponin was elevated to 7 with serial troponin flat. Active elevated at 2.5. Urinalysis was positive for UTI with urine WBC more than 100 influenza RSV COVID swab was negative. LFTs were normal. Procalcitonin 0.5 patient received IV fluid resuscitation CT head showed no acute findings extensive bilateral symmetric chronic small-vessel ischemic changes were noted. Chest x-ray with no acute pulmonary findings. Severe arthritis of both shoulders noted. EKG showed sinus tachycardia with ST-T changes. Patient deemed to be septic with UTI with concomitant evidence of acute kidney injury. She has oliguric KRISTEN and profoundly dehydrated. She has underlying advanced dementia She received 3-4 L of IV fluid bolus. Continued on maintenance IV fluids with normal saline at 100 cc an hour. Blood culture urine culture has been obtained. Given recent urine culture finding with E coli ESBL and Enterococcus faecalis antibiotics were switched to meropenem. Goals of care discussion with regard to ongoing acute kidney injury with initiation of dialysis given uremia and worsening acidosis initiation of dialysis has been decided. There surgery has been consulted to place the temporary dialysis catheter to initiate dialysis. Renal ultrasound with no findings of hydronephrosis. Villalba catheter has been placed. Continue to monitor intake and output strictly. Will continue IV fluid resuscitation add albumin to continue to maintain volume status. Monitor strict I&Os. Status post temporary dialysis catheter placement on 03/28/2025 with initiation of dialysis 03/28/2025. She received another hemodialysis session 03/30/2025. Bacteremia with MRSA. Vancomycin initiated. Infectious Disease consult AFib with RVR noted 03/27/2025. IV metoprolol scheduled. Transferred to IMU. Cardiology consulted currently rate controlled on metoprolol scheduled. Telemetry reviewed and currently controlled with scheduled metoprolol History of severe dementia Altered mental status worsening. Will check ABG and CT CT head. Anemia with further drop in H&H will hold heparin subQ not a candidate for anticoagulation for AFib. UTI Gram-negative bacilli growing on the culture await identification. Gram-negative bacilli isolated. Yet to be identified Sacral/heel pressure ulcers no signs of infection wound care following. residential resident Dysphagia NG placed and tube feeds started. Type 2 diabetes Hypertension History of congestive heart failure with elevated BNP History of stroke DVT prophylaxis heparin subQ Code status modified code Discussed with Ana MONET the patient again today with declining clinical condition. discussed comfort care versus continued care. Suggested overall decline/non improvement with likelihood of needing G-tube and chronic dialysis. Wants to continue current treatment For now. Follow clinical course Subjective Date/time seen: 03/31/25 15:07 Interval history: Patient Vomited earlier today. Discussed with the nursing staff. Patient not much responsive today. Labs reviewed. controlled Review of Systems Review of Systems: ROS unobtainable: Yes unobtainable due to medical condition and unobtainable due to mental status Exam Narrative: General: ill-appearing not in acute distress Eyes: EOMI ENT: neck supple Cardiovascular: Regular rate and rhythm, rate controlled Respiratory: Coarse breath sounds bilaterally not in acute respiratory distress Gastrointestinal: Soft, non tender Genitourinary: no suprapubic tenderness, villalba catheter in place Musculoskeletal: No edema, multiple necrotic toe wounds, no drainage. Skin: warm, dry Neuro: patient somnolent Psych: Non cooperative Objective Data Vital Signs Vital Signs: Vital Signs - 24 hr 03/30/25 15:15 03/30/25 15:30 03/30/25 15:45 Temperature Pulse Rate 101 H 101 H 103 H Respiratory Rate Blood Pressure 95/49 L 103/52 L 110/64 Pulse Oximetry Oxygen Delivery Fraction of Inspired Oxygen 03/30/25 16:00 03/30/25 16:00 03/30/25 16:15 Temperature Pulse Rate 103 H 99 95 Respiratory Rate Blood Pressure 110/25 L 96/56 L Pulse Oximetry Oxygen Delivery Fraction of Inspired Oxygen 03/30/25 16:30 03/30/25 16:50 03/30/25 17:00 Temperature Pulse Rate 104 H 105 H 104 H Respiratory Rate Blood Pressure 85/35 L 102/47 L 104/29 L Pulse Oximetry Oxygen Delivery Fraction of Inspired Oxygen 03/30/25 17:15 03/30/25 17:30 03/30/25 17:45 Temperature Pulse Rate 80 106 H 102 H Respiratory Rate Blood Pressure 115/72 140/60 90/34 L Pulse Oximetry Oxygen Delivery Fraction of Inspired Oxygen 03/30/25 18:00 03/30/25 18:00 03/30/25 18:03 Temperature Pulse Rate 100 97 102 H Respiratory Rate Blood Pressure 87/45 L 90/45 L Pulse Oximetry Oxygen Delivery Fraction of Inspired Oxygen 03/30/25 18:18 03/30/25 18:30 03/30/25 20:00 Temperature 96.5 F L 98.6 F Pulse Rate 106 H 110 H Respiratory Rate 18 16 Blood Pressure 94/40 L 90/38 L Pulse Oximetry 94 90 94 Oxygen Delivery Room Air Fraction of Inspired Oxygen 0 03/30/25 20:00 03/30/25 21:46 03/30/25 23:14 Temperature 99.5 F Pulse Rate 109 H 112 H 86 Respiratory Rate 20 Blood Pressure Pulse Oximetry 100 Oxygen Delivery Fraction of Inspired Oxygen 03/31/25 00:00 03/31/25 00:00 03/31/25 04:00 Temperature Pulse Rate 103 H 113 H Respiratory Rate Blood Pressure 91/40 L Pulse Oximetry Oxygen Delivery Fraction of Inspired Oxygen 03/31/25 04:09 03/31/25 05:51 03/31/25 09:07 Temperature 97.1 F L Pulse Rate 105 H 114 H 117 H Respiratory Rate 16 Blood Pressure 96/42 L Pulse Oximetry 95 Oxygen Delivery Fraction of Inspired Oxygen 03/31/25 09:10 03/31/25 13:48 Temperature 97.4 F L Pulse Rate 103 H Respiratory Rate 18 Blood Pressure 89/36 L Pulse Oximetry 99 Oxygen Delivery Room Air Fraction of Inspired Oxygen Intake/Output Intake/Output: Intake & Output 03/28/25 03/29/25 03/30/25 03/31/25 23:59 23:59 23:59 23:59 Intake Total 300 1262.48 900.5 105 Output Total 115 15 15 20 Balance 185 1247.48 885.5 85 Meds/Results Medications: Active Medications Generic Name Dose Route Start Last Admin Trade Name Freq PRN Reason Stop Dose Admin Acetaminophen 650 mg 03/26/25 21:38 Acetaminophen 325 Mg Tablet PO Q4H PRN Mild Pain (1-3) or Fever Artificial Tears 2 drop 03/27/25 06:42 Artificial Tears Ophth Soln 15 Ml Bottle EACH EYE Q12H PRN dry eye(s) Aspirin 81 mg 03/31/25 09:00 03/31/25 09:08 Aspirin 81 Mg Chewable Tablet FEED TUBE 81 mg DAILY TELLO Administration Bisacodyl 10 mg 03/27/25 06:42 Bisacodyl 10 Mg Suppository RECTAL DAILY PRN Constipation Dextrose 12.5 gm 03/27/25 11:02 03/29/25 06:48 Dextrose 50% 25 Gm/50 Ml Syringe IV PUSH 12.5 gm PRN PRN Administration Hypoglycemia Protocol Diclofenac Sodium 1 applic 03/27/25 06:42 Diclofenac Sodium 1% 100 Gm Gel (*Bkc) TOPICAL Q4H PRN Joint pain Glucagon 1 mg 03/27/25 11:02 Glucagon For Inj 1 Mg Vial IM PRN PRN Hypoglycemia Protocol Glucose 15 gm 03/27/25 11:02 Glucose Oral Gel 15 Gm Of Glucse In 37.5 Gm Tube PO PRN PRN Hypoglycemia Protocol Heparin Sodium (Porcine) 5,000 units 03/27/25 09:00 03/28/25 09:21 Heparin Sodium 5,000 Units/Ml Vial SUB-Q 5,000 units On Hold: 03/28/25 10:54 Q12HR TELLO Administration Hydrocortisone 1 applic 03/27/25 06:42 Hydrocortisone 1% 30 Gm Cream TOPICAL Q12H PRN Hemorrhoids Dextrose 1,000 mls @ 100 mls/hr 03/27/25 11:02 Dextrose 5% 1,000 Ml IVPB PRN PRN Hypoglycemia Protocol Meropenem 500 mg/ Sodium 100 mls @ 200 mls/hr 03/27/25 14:00 03/31/25 14:39 Chloride IVPB 200 mls/hr DAILY@1400 TELLO Administration Albumin Human 50 mls @ 999 mls/hr 03/28/25 11:59 03/30/25 17:22 Albutein IVPB 04/27/25 11:58 Infused Q10M PRN Infusion HYPOTENSION Dextrose 1,000 mls @ 30 mls/hr 03/29/25 13:15 03/31/25 14:40 Dextrose 10% IV CONT 0 mls/hr .Q24H TELLO Infusion Insulin Aspart 2 - 5 units 03/27/25 12:00 03/31/25 12:31 Insulin Aspart (*Bkc) 100 Units/Ml SUB-Q Not Given TIDWM TELLO Protocol Ipratropium [place] 0.5 mg 03/31/25 14:00 Ipratropium Br 0.02% Inh Soln 0.5 Mg/2.5 Ml Vial INHALATION Q6HRT TELLO Lactic Acid 1 applic 03/27/25 09:00 03/31/25 11:57 Lactic Acid 12% Lotion 225 Btl TOPICAL 04/26/25 08:59 1 applic DAILY TELLO Administration Levalbuterol HCl 0.63 mg 03/31/25 14:00 Levalbuterol Neb 1.25 Mg/3 Ml INHALATION Q6HRT TELLO Lidocaine 1 patch 03/30/25 09:00 03/31/25 11:57 Lidocaine 5% Patch TRANSDERM 1 patch DAILY TELLO Administration Metoprolol Tartrate 2.5 mg 03/27/25 21:00 03/31/25 14:41 Metoprolol Tartrate Inj 5 Mg/5 Ml Vial IV PUSH Not Given Q6H TELLO Ondansetron HCl 4 mg 03/26/25 21:38 03/31/25 09:42 Ondansetron Inj 4 Mg/2 Ml Vial IV PUSH 4 mg Q4H PRN Administration Nausea Pantoprazole Sodium 40 mg 03/28/25 09:00 03/31/25 09:07 Pantoprazole Sodium Iv 40 Mg Vial IV PUSH 40 mg QAM TELLO Administration Vancomycin HCl 1 each 03/30/25 16:58 Vancomycin For Hemodialysis IVPB PRN PRN Vancomycin Protocol Radiology Results: ITS Impressions Head CT 03/26/25 19:31 IMPRESSION: 1. No acute intracranial findings. 2. Extensive, bilaterally symmetric chronic small vessel ischemic changes. Renal Ultrasound 03/27/25 14:05 IMPRESSION: Very limited examination with no gross hydronephrosis or large renal masses. If more discrete evaluation of the kidneys is required, consider CT or MRI. The urinary bladder is nondistended with catheter placed. Cholelithiasis incidentally noted in the partially visualized gallbladder. Abdomen X-Ray 03/30/25 13:23 IMPRESSION: 1. Nasogastric tube tip in proximal side port in the body the stomach. Chest X-Ray 03/31/25 10:00 IMPRESSION: 1. No gross interval change from the March 28 exam. Labs Labs: Laboratory Results - last 24 hr 03/30/25 03/31/25 03/31/25 18:40 00:25 05:01 WBC RBC Hgb Hct MCV MCH MCHC RDW Plt Count MPV Immature Gran % (Auto) Neut % (Auto) Lymph % (Auto) [place] % (Auto) Eos % (Auto) Baso % (Auto) Lymph # (Auto) [place] # (Auto) Eos # (Auto) Baso # (Auto) Abs Immat Gran (auto) Absolute Neuts (auto) Absolute Nucleated RBC Band Neutrophils % Nucleated RBC % Platelet Estimate Anisocytosis Target Cells [place] Cells Schistocytes Sodium Potassium Chloride Carbon Dioxide Anion Gap BUN Creatinine Estim Creat Clear Calc Estimated GFR Glucose POC Capillary Glucose 86 97 85 Calcium Phosphorus Magnesium Total Bilirubin AST ALT Alkaline Phosphatase C-Reactive Protein Total Protein Albumin 03/31/25 03/31/25 05:13 11:59 WBC 13.2 H RBC 2.75 L Hgb 7.3 L Hct 22.5 L MCV 81.8 MCH 26.5 MCHC 32.4 RDW 18.1 H Plt Count 106 L MPV 11.8 H Immature Gran % (Auto) 5.0 H Neut % (Auto) 74.1 H Lymph % (Auto) 16.2 L [place] % (Auto) 4.3 Eos % (Auto) 0.2 Baso % (Auto) 0.2 Lymph # (Auto) 2.14 [place] # (Auto) 0.6 Eos # (Auto) 0.0 Baso # (Auto) 0.0 Abs Immat Gran (auto) 0.66 H Absolute Neuts (auto) 9.8 H Absolute Nucleated RBC 0.320 H Band Neutrophils % Not Reportable Nucleated RBC % 2.4 H Platelet Estimate Decreased Anisocytosis 1+ Target Cells 1+ [place] Cells 2+ Schistocytes None seen Sodium 134 L Potassium 3.9 Chloride 101 Carbon Dioxide 15 L Anion Gap 18 H BUN 7 D Creatinine 1.99 H Estim Creat Clear Calc 24 Estimated GFR 25 L Glucose 96 POC Capillary Glucose 140 H Calcium 7.5 L Phosphorus 1.5 L Magnesium 1.6 Total Bilirubin 1.7 H AST 59 H ALT 44 H Alkaline Phosphatase 79 C-Reactive Protein 6.3 H Total Protein 5.0 L Albumin 2.7 L
--- NOTE | 2025-03-31 15:18 | PCSTNOTE ---
03/31 Patient unable to complete bedside swallow at this time. Please re-consult when appropriate.
[2025-03-31] MEDS: IPRATROPIUM BR 0.02% INH SOLN 0.5 MG/2.5 ML VIAL INHALATION (15:20)
[2025-03-31 16:31] LABS: Fractional Inspired Oxygen 21 %; HCO3 VBG 15.6 mEq/l (24.0-30.0); PO2 VBG 27.3 mmHg (35.0-45.0); pH VBG 7.400 (7.300-7.400)
[2025-03-31 16:34] LABS: Hematocrit 24.8 % (37.0-47.0); Hemoglobin 8.1 g/dL (12.0-15.0); Immature Granulocyte Percent A 2.0 % (0-0.5); Immature Platelet Fraction Pct 8.4 % (0.9-11.2); Lymphocytes Absolute Auto 1.30 K/mm3 (0.9-3.2); Mean Corpuscular HGB Conc 32.7 g/dl (32-36); Mean Corpuscular Hemoglobin 26.4 pg (26-34); Mean Corpuscular Volume 80.8 fl (80-100); Nucleated Red Blood Cells Absolute Auto 0.570 K/mm3 (0.0-0.012); Nucleated Red Blood Cells Perc 4.7 % (0.0-0.2); Platelet Count Result 98 k/mm3 (150-375); Red Blood Count 3.07 M/mm3 (4.2-5.4); White Blood Count 12.2 K/mm3 (4.5-10.0)
[2025-03-31 16:39] LABS: PCO2 VBG 25.7 mmHg (42.0-48.0)
[2025-03-31 16:40] LABS: Ammonia < 9 umol/L (9-30)
[2025-03-31 16:46] LABS: Alanine Aminotransferase 52 U/L (6-35); Albumin Level 2.7 g/dL (3.5-5.1); Alkaline Phosphatase 99 U/L (38-126); Anion Gap 19 mmol/L (4-12); Aspartate Amino Transferase 64 U/L (14-36); Bilirubin,Total 1.8 mg/dL (0.2-1.3); Blood Urea Nitrogen 9 mg/dL (7-17); Calcium 7.4 mg/dL (8.4-10.2); Carbon Dioxide 15 mmol/L (22-30); Chloride 101 mmol/L (98-107); Estimated CRCL calculation 20 ml/min; Estimated Glomerular Filt Rate 20; Glucose 175 mg/dL (65-110); Magnesium 1.5 mg/dL (1.6-2.3); Potassium 4.3 mmol/L (3.4-5.0); Sodium 135 mmol/L (137-145); Total Protein 5.1 g/dL (6.3-8.2)
[2025-03-31] MEDS: ALBUMIN HUMAN 25% 25 GM/100 ML 200 ML IVPB (16:47)
[2025-03-31 16:58] LABS: Target Cells 1+
[2025-03-31 16:59] LABS: Schistocytes None Seen
[2025-03-31] MEDS: MIDODRINE HCL 2.5 MG TABLET 5 MG FEED TUBE (17:28)
--- NOTE | 2025-03-31 18:07 | PM.DDS ---
Discharge Summary Probable Cause of Probable Cause of : Sepsis Acute kidney injury UTI MRSA bacteremia Summary Hospital Course: This is a 69-year-old female who presents to the ED from assisted due to elevated creatinine on outpatient lab. She has also had altered mental status with increased lethargy. Patient was recently admitted to outside hospital with KRISTEN and UTI and was treated with resolution of KRISTEN. UTI with urine culture growing Enterococcus faecalis as well as ESBL E coli. Since no urinary symptoms this was considered to be contaminant and hence not treated. Family noted patient progressively less responsive over the course of week and hence sent to the ED for evaluation. In ED she was tachycardic blood pressure was adequate. Laboratory data revealed WBC of 12.2 hemoglobin 10.4 platelet count 379. Sodium 139 potassium 4.3 chloride 107 bicarbonate 21 BUN 89 and creatinine 7.48 blood sugar of 139 her discharge creatinine was 1.7 in January 2025. BNP 97400 troponin was elevated to 7 with serial troponin flat. Active elevated at 2.5. Urinalysis was positive for UTI with urine WBC more than 100 influenza RSV COVID swab was negative. LFTs were normal. Procalcitonin 0.5 patient received IV fluid resuscitation CT head showed no acute findings extensive bilateral symmetric chronic small-vessel ischemic changes were noted. Chest x-ray with no acute pulmonary findings. Severe arthritis of both shoulders noted. EKG showed sinus tachycardia with ST-T changes. Patient deemed to be septic with UTI with concomitant evidence of acute kidney injury. She has oliguric KRISTEN and profoundly dehydrated. She has underlying advanced dementia however with worsening mental status. She received 3-4 L of IV fluid bolus. Continued on maintenance IV fluids and she was pancultured. Given recent urine culture finding with E coli ESBL and Enterococcus faecalis antibiotics were switched to meropenem. Since he remained oliguric with barely improving renal function goals of care discussion with regard to initiation of dialysis given uremia and worsening acidosis was made. Family decided on at this starting on a temporary dialysis for which General surgery was consulted and temporary dialysis catheter was placed on 03/28/2025. She was initiated on dialysis on 03/28/2025. Her mental status slightly improved with dialysis however continued to remain an issue. Patient was noted to be bacteremic with MRSA and vancomycin was added to his regimen. Infectious Disease was consulted. She also had AFib with RVR starting on 03/27/2025 for which cardiology was consulted. With worsening altered mental status and ABG and CT head was obtained. CT head was negative. ABG showed respiratory alkalosis. Severe lactic acidosis low at 12 was noted on 03/31/2025. Patient was discussed with manager operations research and was planned to be transferred to ICU to start fluids and/or pressors. CT chest abdomen pelvis was also planned to be obtained. Goals of care discussion with her POA was again done and decision to continue current treatment and to follow the clinical course was made. On 03/31/2025 she however abruptly declined with bradycardia with eventual change to PEA. Since patient is no code with meds only patient did receive 2 doses of epinephrine during the code blue event without any improvement. Family was attempted to be contacted at that time however was unable to be reached. Patient was called at 5:40 p.m.
--- NOTE | 2025-03-31 19:06 | WPDIDCN ---
Assessment and Plan Assessment and plan (1) MRSA bacteremia: Code(s): R78.81 - Bacteremia; B95.62 - Methicillin resistant Staphylococcus aureus infection as the cause of diseases classified elsewhere Status: Acute Plan ASSESSMENT: 1. MRSA bacteremia 2. UTI 3. CKD now on HD 4. dementia RECOMMENDATIONS: -agree with IV vancomycin and meropenem for now -dailiy blood cxs -echo -f/u on urine cx ID and sensitivities d/w pharmacy staff, nursing staff, brother, Armani and Ana MONET pt seen earlier but has subsequently Pt was seen via video telehealth consultation with the assistance of staff. Chart, data and patient info reviewed. Patient was located at [facility] while I was in my [place] office. Consent given by Ana MONET [facility] Data of Consult Date/Time: 03/31/25 19:06 Requesting Physician: Tanisha Montenegro DO Primary Care Provider: Dillan Villanueva Consult Narrative Reason for consult: abx mgmt Narrative: Yisel Alvarez is a 69 year old female with pmhx/o dementia, CKD, presented from [place] with worsening kidney function. Had HD cath placed and 2 sessions of HD performed per Ana MONET. ID consulted for GNR urine cx and MRSA bacteremia. Pt very somnolent and could not give history. Has been on vanco IV and meropenem. Also with multiple wounds per [facility]I. PMFSH Past Medical History Medical History Anxiety and depression Dementia Type 2 diabetes mellitus Essential hypertension CHF (congestive heart failure) CVA (cerebral vascular accident) Surgical History Surgical History Surgical history unknown Social History Social History Smoking status: Unknown if ever smoked Spiritual care concerns: No Meds Home Medications and Allergies Home Medications ?Medication ?Instructions ?Recorded ?Confirmed ?Type acetaminophen 325 mg capsule 650 mg PO Q4H PRN pain 03/27/25 03/27/25 History albuterol 90 mcg-budesonide 80 2 inh inhalation Q6H PRN shortness 03/27/25 03/27/25 History mcg/actuation HFA aerosol inhaler of breath (Airsupra) ammonium lactate 12 % lotion 1 applic topical DAILY 03/27/25 03/27/25 History (AmLactin) ascorbic acid (vitamin C) 500 mg 500 mg PO DAILY 03/27/25 03/27/25 History capsule aspirin 81 mg tablet 81 mg PO DAILY 03/27/25 03/27/25 History atorvastatin 40 mg tablet 40 mg PO HS 03/27/25 03/27/25 History bisacodyl 10 mg rectal suppository 10 mg RECTAL DAILY PRN constipation 03/27/25 03/27/25 History calamine 1 ea topical Q8H PRN itching 03/27/25 03/27/25 History carvedilol 6.25 mg tablet 6.25 mg PO BID 03/27/25 03/27/25 History cholecalciferol (vitamin D3) 25 1,000 unit PO DAILY 03/27/25 03/27/25 History mcg (1,000 unit) capsule cranberry extract 250 mg tablet 250 mg PO DAILY 03/27/25 03/27/25 History diclofenac sodium 1 % topical gel 2 g topical Q4H PRN pain 03/27/25 03/27/25 History diphenhydramine HCl 25 mg capsule 25 mg PO Q6H PRN itching 03/27/25 03/27/25 History (Aler-Cap) duloxetine 60 mg capsule,delayed 60 mg PO DAILY 03/27/25 03/27/25 History release famotidine 20 mg tablet 20 mg PO DAILY 03/27/25 03/27/25 History ferrous sulfate 325 mg (65 mg 325 mg PO DAILY 03/27/25 03/27/25 History iron) tablet (FeroSul) furosemide 40 mg tablet 40 mg PO DAILY 03/27/25 03/27/25 History hydrocortisone 1 % topical cream 1 applic topical Q12H PRN 03/27/25 03/27/25 History (Ala-Rubens) hemorrhoids magnesium citrate 296 ml PO DAILY PRN constipation 03/27/25 03/27/25 History magnesium hydroxide 400 mg/5 mL 30 ml PO HS PRN constipation 03/27/25 03/27/25 History oral suspension (Milk of Magnesia) methyl salicylate 10 % topical 1 applic topical Q4H PRN muscle 03/27/25 03/27/25 History cream pain metronidazole 1 % topical cream 1 applic topical Q12H 03/27/25 03/27/25 History (Noritate) miconazole nitrate 2 % topical 1 spray topical Q12H 03/27/25 03/27/25 History spray powder (Athlete's Foot) mirtazapine 7.5 mg tablet 7.5 mg PO HS 03/27/25 03/27/25 History multivitamin (Daily Multi-Vitamin 1 tablet PO DAILY 03/27/25 03/27/25 History tablet) nystatin 100,000 unit/gram topical 1 applic topical BID 03/27/25 03/27/25 History powder ondansetron HCl 4 mg tablet 4 mg PO Q6H PRN nausea and vomiting 03/27/25 03/27/25 History ophthalmic irrigation solution 2 drp ophthalmic (eye) Q12H PRN 03/27/25 03/27/25 History drops dry eye(s) polyethylene glycol 3350 17 17 g PO DAILY PRN constipation 03/27/25 03/27/25 History gram/dose oral powder (ClearLax) povidone-iodine 10 % topical 1 applic topical DAILY 03/27/25 03/27/25 History solution (Betadine) sitagliptin 25 mg tablet 25 mg PO DAILY 03/27/25 03/27/25 History sodium phosphates 19 gram-7 118 ml RECTAL DAILY PRN 03/27/25 03/27/25 History gram/118 mL enema (Enema) constipation triamcinolone acetonide 0.1 % 1 applic topical BID 03/27/25 03/27/25 History topical cream zinc 50 mg capsule 50 mg PO DAILY 03/27/25 03/27/25 History zinc oxide 10 % topical spray 1 applic topical BID 03/27/25 03/27/25 History (Beba Bottoms Diaper Rash) Allergies Allergy/AdvReac Type Severity Reaction Status Date / Time No Known Allergies Allergy Verified 03/27/25 01:53 Vital Signs Vital Signs - 24 hr 03/30/25 20:00 03/30/25 20:00 03/30/25 21:46 Temperature Pulse Rate 109 H 112 H Respiratory Rate Blood Pressure Pulse Oximetry 94 Oxygen Delivery Room Air Fraction of Inspired Oxygen 0 03/30/25 23:14 03/31/25 00:00 03/31/25 00:00 Temperature 99.5 F Pulse Rate 86 103 H Respiratory Rate 20 Blood Pressure 91/40 L Pulse Oximetry 100 Oxygen Delivery Fraction of Inspired Oxygen 03/31/25 04:00 03/31/25 04:09 03/31/25 05:51 Temperature 97.1 F L Pulse Rate 113 H 105 H 114 H Respiratory Rate 16 Blood Pressure 96/42 L Pulse Oximetry 95 Oxygen Delivery Fraction of Inspired Oxygen 03/31/25 08:00 03/31/25 09:07 03/31/25 09:10 Temperature Pulse Rate 102 H 117 H Respiratory Rate Blood Pressure Pulse Oximetry Oxygen Delivery Room Air Fraction of Inspired Oxygen 03/31/25 12:00 03/31/25 13:48 03/31/25 15:15 Temperature 97.4 F L Pulse Rate 111 H 103 H Respiratory Rate 18 Blood Pressure 89/36 L 92/51 L Pulse Oximetry 99 Oxygen Delivery Fraction of Inspired Oxygen 03/31/25 15:29 03/31/25 16:00 Temperature Pulse Rate 117 H 119 H Respiratory Rate 16 Blood Pressure Pulse Oximetry 99 Oxygen Delivery Room Air Fraction of Inspired Oxygen Exam Narrative: lethargic, on room air +NGT RIJ HD cath abd soft +villalba no other central lines in extrems No LE edema; +LUE edema some ischemic changes to toes Results Labs 03/31/25 16:17 03/31/25 16:17 Labs: Short CBC 03/31/25 03/31/25 Range/Units 05:13 16:17 WBC 13.2 H 12.2 H (4.5-10.0) K/mm3 Hgb 7.3 L 8.1 L (12.0-15.0) g/dL Hct 22.5 L 24.8 L (37.0-47.0) % Plt Count 106 L 98 L (150-375) k/mm3 BMP 03/31/25 03/31/25 05:13 16:17 Sodium 134 L 135 L Potassium 3.9 4.3 Chloride 101 101 Carbon Dioxide 15 L 15 L BUN 7 D 9 Creatinine 1.99 H 2.39 H Glucose 96 175 H Calcium 7.5 L 7.4 L Liver Function 03/31/25 03/31/25 Range/Units 05:13 16:17 Total Bilirubin 1.7 H 1.8 H (0.2-1.3) mg/dL AST 59 H 64 H (14-36) U/L ALT 44 H 52 H (6-35) U/L Alkaline Phosphatase 79 99 (38-126) U/L Albumin 2.7 L 2.7 L (3.5-5.1) g/dL
== END 2025-03-31 22:30 | disposition expired | DRG 871 ==
LOC: ANHED 20:56 → ANH3MEDSUR 23:03 → ANHIMU 03-30 09:56 → ANH3MED 03-31 11:25 → ANH3MEDSUR 04-02 11:31 → ANHIMU 04-02 11:31
PROVIDERS: Emergency Medicine; Internal Medicine Nephrology; Physician Assistant; Admitting Provider Internal Medicine; Emergency Provider Emergency Medicine; Visit Provider Internal Medicine
DX: A41.02 Sepsis due to Methicillin resistant Staphylococcus aureus (principal); G93.41 Metabolic encephalopathy; L89.513 Pressure ulcer of right ankle, stage 3; N39.0 Urinary tract infection, site not specified; N17.9 Acute kidney failure, unspecified; I13.0 Hypertensive heart and chronic kidney disease with heart failure and stage 1 through stage 4 chronic kidney disease, or unspecified chronic kidney disease; R65.20 Severe sepsis without septic shock; I50.9 Heart failure, unspecified; I48.91 Unspecified atrial fibrillation; N18.32 Chronic kidney disease, stage 3b; E87.6 Hypokalemia; E11.22 Type 2 diabetes mellitus with diabetic chronic kidney disease; L89.156 Pressure-induced deep tissue damage of sacral region; R00.1 Bradycardia, unspecified; R79.89 Other specified abnormal findings of blood chemistry; F41.9 Anxiety disorder, unspecified; F03.90 Unspecified dementia, unspecified severity, without behavioral disturbance, psychotic disturbance, mood disturbance, and anxiety; F32.A Depression, unspecified; Z20.822 Contact with and (suspected) exposure to COVID-19; Z79.82 Long term (current) use of aspirin; Z86.73 Personal history of transient ischemic attack (TIA), and cerebral infarction without residual deficits
CPT/HCPCS: 36415; 36600; 70450; 71045; 76770; 80048; 80053; 81001; 82140; 82550; 82570; 82607; 82728; 82746; 82803; 82805; 82948; 83036; 83540; 83550; 83605; 83735; 83880; 84100; 84145; 84156; 84300; 84443; 84484; 84540; 85018; 85025; 85055; 85610; 85730; 85999; 86140; 86706; 86850; 86900; 86901; 87040; 87086; 87186; 87340; 87637; 93005; 96361; 96365; 99285; A9270; C1751; C1752; C8929; G0257; G0378; J0168; J0616; J0696; J1644; J2185; J2405; J2470; J3373; J3480; J7030; J7040; J7050; J7070; P9047; Q5105; Q9957